=== PATIENT | male | born 1965 | race Caucasian/White ===

== ENCOUNTER 2023-06-28 17:48 | Inpatient (IN) | payer OTHER, SELFPAY ==
--- NOTE | ~2023-06-28 | CT_ITS ---
EXAMINATION: CT HAND LEFT W IV CONTRAST CLINICAL INFORMATION: Pain. Rule out tenosynovitis. COMPARISON: None available. TECHNIQUE: Contiguous axial contrast enhanced CT scan images of the left hand performed after intravenous administration of 85 mL of Omnipaque 350. Sagittal and coronal reformatted images obtained as well. This CT examination was performed using dose optimization techniques as appropriate, variously including the following: *Automated exposure control *Adjustment of mA and/or kV according to patient size (this includes techniques or standardized protocols for targeted exams where dose is matched to indication/reason for exam; i.e. extremities or head) *Use of iterative reconstruction technique DLP: 121 mGy-cm FINDINGS: There is mild degenerative change of the wrist. There is no evidence for fracture or bony erosive change. There is mild subcutaneous edema throughout the wrist extending into the hand. No fluid collection is seen. The well-visualized ligaments are grossly within normal limits without definitive associated fluid. CT/CT hand LT w IV con IMPRESSION: Mild degenerative of the wrist and edema of the wrist and hand. No acute osseous abnormality. No definitive evidence for tenosynovitis. MRI is a much better modality to evaluate soft tissues and should be considered if patient's symptoms persist..
--- NOTE | ~2023-06-28 | US_ITS ---
Examination: Ultrasound extremity nonvascular left hand. Clinical indications: Left hand induration and drainage. Rule out abscess. TECHNIQUE: Focal ultrasound imaging through the left lower hand was performed. A splinter was noted. FINDINGS: Imaging through the left palmar hand reveals variously a echogenic linear splinter measuring 2.2 x 0.1 x 0.2 cm. It is approximately 0.4 to 1.4 cm deep and has surrounding edema and reactive vascularity. No abscess seen. US/US extremity nonvascular bradshaw IMPRESSION: Linear echogenic splinter seen in left palm and at the base of index finger measuring 2.2 x 0.1 x 0.2 cm. It is 0.4 to 1.4 cm deep to this superficial skin.
--- NOTE | ~2023-06-28 | XR_ITS ---
EXAMINATION: XR HAND, LEFT CLINICAL INFORMATION: Question foreign body COMPARISON: None available. TECHNIQUE: PA, lateral, and oblique views of the right second finger FINDINGS: Positive for radiopaque foreign body. This is at the level of the second MCP joint toward the radial aspect. Approximately 3 mm deep to the skin. Measures 4 mm x 2 mm. There is another foreign body seen overlying the soft tissue between the first and second metacarpal measuring 1 to 2 mm. This foreign body could be seen overlying the cortex of the third metacarpal on the oblique image but this foreign body could represent a separate foreign body. XR/XR hand LT min 3V IMPRESSION: Positive foreign bodies as described. No evidence for underlying bony fracture
--- NOTE | ~2023-06-28 | XR_ITS ---
EXAMINATION: XR HAND, LEFT CLINICAL INFORMATION: Evaluate for foreign body COMPARISON: None available. TECHNIQUE: PA, lateral, and oblique views of the left hand. FINDINGS: No evidence for fracture or dislocation. No foreign body is seen. XR/XR hand LT min 3V IMPRESSION: No fracture or dislocation. No radiopaque foreign body is seen.
[2023-06-28 18:22] VITALS: BP 124/83; PULSE 73; RESP 20; TEMP 36.4; O2SAT 98; BMI 37.1
--- NOTE | 2023-06-28 18:45 | MHC.EDTECH ---
Patient blood drawn and sent to lab .
[2023-06-28 18:48] LABS: MANUAL DIFF FLAG NO
[2023-06-28 18:54] LABS: Basophils Absolute Auto 0.1 X10*3/uL (0.0-0.2); Basophils Percent Auto 0.8 % (0-2); Eosinophils Absolute Auto 0.1 X10*3/uL (0.0-0.4); Eosinophils Percent Auto 0.9 % (0-4); Hematocrit 43.2 % (42.0-52.0); Hemoglobin 14.6 g/dl (14.0-18.0); Imm Gran Abs Auto 0.09 X10*3/uL (0.00-0.03); Lymphocytes Absolute Auto 1.8 X10*3/uL (1.2-4.9); Lymphocytes Percent Auto 20.3 % (20-40); Mean Corpuscular HGB Conc 33.8 g/dl (31.0-36.0); Mean Corpuscular Hemoglobin 30.4 pg (27.0-33.0); Mean Corpuscular Volume 89.8 fL (80.0-98.0); Monocytes Absolute Auto 0.6 X10*3/uL (0.1-1.2); Monocytes Percent Auto 6.7 % (2-11); Neutrophils Absolute Auto 6.3 x10*3/uL (2.0-8.3); Neutrophils Percent Auto 70.3 % (45-73); Platelet Count 248 X10*3/uL (160-400); Red Blood Count 4.81 X10*6/uL (4.60-5.80); Red Cell Distribution Width 12.1 % (11.0-16.0); White Blood Count 8.9 X10*3/uL (4.8-10.8)
[2023-06-28 19:07] LABS: Alanine Aminotransferase 15 U/L (0-40); Alkaline Phosphatase 72 U/L (39-117); Anion Gap 14 (12-20); Aspartate Amino Transferase 18 U/L (5-37); Bilirubin Total 0.6 mg/dL (0.0-1.0); Blood Urea Nitrogen 14 mg/dL (9-16); Carbon Dioxide 22 mmol/L (22-29); Chloride 110 mmol/L (96-108); Creatinine Clr Calc Pharmacy 107.5; Estimated Glomerular Filt Rate > 60; Glucose Random 91 mg/dL (60-115); Potassium 3.8 mmol/L (3.3-5.1); Sodium 142 mmol/L (135-145); Total Protein 6.8 g/dL (6.5-8.0)
--- NOTE | 2023-06-28 21:47 | ED_ITS ---
HPI - General Adult General Chief complaint: Skin/Abscess/Foreign Body Stated complaint: cellulitis on L hand/ sliver Time Seen by Provider: 06/28/23 20:55 Source: patient and RN notes reviewed Mode of arrival: ambulatory Limitations: no limitations History of Present Illness HPI narrative: 57-year-old male presents for evaluation of left hand pain and swelling Patient is anticoagulated with Eliquis for atrial fibrillation He states that 3 days ago he accidentally got a sliver into the palm of his left hand at the base of the left 2nd finger He removed this immediately Patient reports that he had a black and blue area up until today Around 3:00 p.m. he has some pain and redness to the area When I evaluated him 4 hours later he states the area of redness has been rapidly progressing and he has a streaking redness going up his left arm He is unable to bend his left 2nd finger Denies any fevers or chills Related Data Home Medications Medication Instructions Recorded Confirmed amiodarone 200 mg tablet 200 mg PO DAILY 06/28/23 06/28/23 apixaban 5 mg tablet (Eliquis) 5 mg PO BID 06/28/23 06/28/23 bupropion HCl 150 mg 24 hr tablet, 150 mg PO DAILY 06/28/23 06/28/23 extended release dicyclomine 20 mg tablet 20 mg PO QID PRN Pain 06/28/23 06/28/23 Allergies Allergy/AdvReac Type Severity Reaction Status Date / Time No Known Allergies Allergy Mild UNKNOWN Verified 06/28/23 18:22 Review of Systems 2 Constitutional: Constitutional: Denies chills and Denies fever(s) Eyes: Eyes: Denies blurry vision Cardiovascular: Cardiovascular: Denies chest pain and Denies dyspnea Respiratory: Respiratory: Denies cough and Denies dyspnea Gastrointestinal: Gastrointestinal: Denies abdominal pain, Denies nausea and Denies vomiting Musculoskeletal: Musculoskeletal: Reports arthralgias, Reports joint swelling, Reports limited range of motion and Reports stiffness Integumentary/Breasts: Skin/Breast: Reports rash and Reports wounds PMFSH Past Medical History Medical History (Updated 06/29/23 @ 02:22 by David Chao) Paroxysmal atrial fibrillation Social History Social History Alcohol intake: current Alcohol intake frequency: a few times a month Smoked in Last 30 Days: No Use of substances other than those prescribed or required for medical reasons: No Advance Directives: No Advance Directives Information Provided: No Physical Exam ED Vital Signs: Vital Signs - 24 hr 06/28/23 18:22 06/28/23 22:49 Temperature 97.6 F 97.0 F Pulse Rate 73 69 Respiratory Rate 20 16 Blood Pressure 124/83 145/80 H Pulse Oximetry 98 97 Oxygen Delivery Method Room Air Room Air BMI result Body Mass Index 37.1 Const General: healthy appearing, comfortable, no acute distress, alert and awake Nutritional Appearance: well nourished Orientation/consciousness: patient oriented x3 HENMT Head: Yes normocephalic and Yes atraumatic Eyes Eyelids: Yes eyelids normal Conjunctivae: conjunctivae normal Sclerae: sclerae normal Corneas: corneas normal Pupils: Equal, round and reactive pupils present EOM: EOMs intact bilaterally Neck Neck: Yes full ROM Resp Effort & Inspection: normal respiratory effort, able to speak in complete sentences and not labored Skin Other: Small puncture wound on the ventral surface of the Halima left hand the base of the left 2nd MCP joint. There is moderate edema to this area with surrounding erythema that extends to the dorsal surface of the hand and there is streaking erythema going up the door service the left arm to about mid way towards the elbow. General skin exam: elasticity normal Neuro General: patient oriented x3 Cranial nerves: Yes Equal, round and reactive pupils present and Yes Bilaterally intact EOM present Cognition (Neuro): normal cognition Extrem Other: Patient is only able to flex the left 2nd finger at the PIP joint to about 90?. The left 2nd MCP joint can only flex to about 150? Medications Administered Generic Name Dose Route Start Last Admin Trade Name Freq PRN Reason Stop Dose Admin Cefazolin Sodium/Dextrose 2 gm in 50 mls @ 100 mls/hr 06/29/23 00:15 06/29/23 02:18 Ancef IV Not Given Q8H MAKAYLA Morphine Sulfate 2 mg 06/29/23 00:33 06/29/23 02:18 Morphine Sulfate 2 Mg/Ml Cartridge IVPUSH 2 mg Q4H PRN Administration moderate pain Protocol Discontinued Medications Generic Name Dose Route Start Last Admin Trade Name Freq PRN Reason Stop Dose Admin Acetaminophen 975 mg 06/28/23 21:13 06/28/23 22:15 Acetaminophen 325 Mg Tablet PO 06/28/23 21:14 975 mg ONCE ONE Administration Vancomycin HCl 2,000 mg in 500 mls @ 250 mls/hr 06/28/23 21:12 06/28/23 22:54 Vancomycin/Ns IV 06/28/23 23:11 250 mls/hr ONCE ONE Administration Ceftriaxone Sodium 1 gm/ 50 mls @ 100 mls/hr 06/28/23 21:12 06/28/23 22:50 Sodium Chloride IV 06/28/23 21:41 Infused ONCE ONE Infusion Sodium Chloride 1,000 mls @ 999 mls/hr 06/28/23 21:15 06/28/23 23:37 Ns IV 06/28/23 22:15 Infused .Q1H1M MAKAYLA Infusion Iohexol 100 ml 06/28/23 22:24 06/28/23 22:24 Iohexol 350 Mg/Ml 100 Ml Infus..Btl IV 06/28/23 22:25 85 ml ONCE ONE Administration Medical Decision Making Medical Decision Making [facility] Narrative: 57-year-old male presents for evaluation of left hand pain and swelling after accidentally stabbing himself with a sliver 3 days ago. He appears to have an obvious cellulitis but there is some concern for tenosynovitis as he has streaking erythema up the arm, has pain extending up the arm and is unable to completely flex left 2nd finger. His vital signs are stable, he has no white count, however his symptoms have been rather rapidly progressive. We will get a CT scan to evaluate for tenosynovitis primarily but will also help rule out foreign body. Will treat with vancomycin and ceftriaxone. Discussed with attending, Dr Booth. Patient will likely require admission Differential Diagnosis Differential Diagnoses: The differential diagnosis associated with the presentation includes Cellulitis Abscess Tenosynovitis Foreign body Puncture wound Admission/Observation Consideration of admission/observation: Escalation of care including admission/observation considered Consult Healthcare Provider Management of the patient was discussed with: Hospitalist and Bad Credit Collector (Orthopedic surgery, Yolanda Rivera) Lab Data [facility] Lab Attestation statement: I reviewed the patient's lab results. No leukocytosis or anemia, no significant electrolyte abnormalities. 06/28/23 18:42 06/28/23 18:42 Labs: Lab Results 06/28/23 06/28/23 06/28/23 Range/Units 18:42 21:51 22:03 WBC 8.9 (4.8-10.8) X10*3/uL RBC 4.81 (4.60-5.80) X10*6/uL Hgb 14.6 (14.0-18.0) g/dl Hct 43.2 (42.0-52.0) % MCV 89.8 (80.0-98.0) fL MCH 30.4 (27.0-33.0) pg MCHC 33.8 (31.0-36.0) g/dl RDW 12.1 (11.0-16.0) % Plt Count 248 (160-400) X10*3/uL MPV 11.0 (9.4-12.4) fL Immature Gran % (Auto) 1.0 H (0.0-0.4) % Neut % (Auto) 70.3 (45-73) % Lymph % (Auto) 20.3 (20-40) % Donley % (Auto) 6.7 (2-11) % Eos % (Auto) 0.9 (0-4) % Baso % (Auto) 0.8 (0-2) % Lymph # (Auto) 1.8 (1.2-4.9) X10*3/uL Donley # (Auto) 0.6 (0.1-1.2) X10*3/uL Eos # (Auto) 0.1 (0.0-0.4) X10*3/uL Baso # (Auto) 0.1 (0.0-0.2) X10*3/uL Abs Immat Gran (auto) 0.09 H (0.00-0.03) X10*3/uL Absolute Neuts (auto) 6.3 (2.0-8.3) x10*3/uL Absolute Nucleated RBC 0.000 (0.0-0.012) X10*3/uL Nucleated RBC % (auto) 0.0 (0.0-0.2) /100WBC PT 12.2 (11.1-13.3) SEC INR 1.0 (0.9-1.1) APTT 34.1 (26.0-36.4) SEC Sodium 142 (135-145) mmol/L Potassium 3.8 (3.3-5.1) mmol/L Chloride 110 H (96-108) mmol/L Carbon Dioxide 22 (22-29) mmol/L Anion Gap 14 (12-20) BUN 14 (9-16) mg/dL Creatinine 0.96 (0.5-1.4) mg/dL Estim Creat Clear Calc 107.5 Estimated GFR > 60 Random Glucose 91 (60-115) mg/dL Lactic Acid 1.4 (0.5-2.0) mmol/L Calcium 9.0 (8.4-10.2) mg/dL Total Bilirubin 0.6 (0.0-1.0) mg/dL AST 18 (5-37) U/L ALT 15 (0-40) U/L Alkaline Phosphatase 72 (39-117) U/L Total Protein 6.8 (6.5-8.0) g/dL Albumin 4.0 (3.5-5.0) g/dL Radiology Impression Discussion of test interpretation with radiology: I have reviewed the radiologist's reading. (No fracture or dislocation. No radiopaque foreign bodies seen) Discharge Plan Discharge Clinical Impression: Cellulitis of hand, left Patient Disposition: Admitted As Inpatient Prescriptions: No Action amiodarone 200 mg tablet 200 mg PO DAILY dicyclomine 20 mg tablet 20 mg PO QID PRN (Reason: Pain) bupropion HCl 150 mg tablet extended release 24 hr 150 mg PO DAILY Eliquis 5 mg Tablet 5 mg PO BID
[2023-06-28 22:02] LABS: Prothrombin Time 12.2 SEC (11.1-13.3)
[2023-06-28 22:04] LABS: Partial Thromboplastin Time 34.1 SEC (26.0-36.4)
--- NOTE | 2023-06-28 22:10 | PC.NURSE ---
pt is alert and oriented, skin pwd, respirations even and unlabored, pt's left hand very swollen, red with streaks running up the forearm as well, pt reports having a slither on the palm of the left hand two-three days ago and today started with swelling and redness and painful about 8/10
[2023-06-28] MEDS: Acetaminophen 325 MG TABLET 975 MG PO (22:15)
[2023-06-28] MEDS: 0.9 % Sodium Chloride 1,000 ML 999 ML IV (22:16)
[2023-06-28] MEDS: cefTRIAXone sodium 1 GM in 0.9 % Sodium Chloride 50 ML IV (22:16)
[2023-06-28 22:20] LABS: Lactic Acid 1.4 mmol/L (0.5-2.0)
[2023-06-28] MEDS: iohexoL 350 MG/ML 100 ML INFUS..BTL IV (22:24)
[2023-06-28 22:49] VITALS: BP 145/80; PULSE 69; RESP 16; TEMP 36.1; O2SAT 97
[2023-06-28] MEDS: vancomycin/NS 2,000 MG/500 ML PLAST..BAG 250 MG IV (22:54)
--- NOTE | 2023-06-29 00:14 | P.HPHOSP_ITS ---
History of Present Illness Date of Service: 06/29/23 Chief Complaint: left hand pain and swelling 57M PMH paroxysmal afib, obesity, mood disorder, ASD s/p closure, presented with left hand pain and swelling. Patient is horan and got a splinter in the plantar surface of left 2nd proximal digit. He believes he only partially removed splinter. Did not get any treatment for it. On day of presentation and became suddenly swollen, erythematous, difficult to fully flex fingers. Denies fever. Has full sensation, but does report paresthesias. In ED hand x-ray unremarkable. CT handd done but is pending. Review of Systems 2 Review of Systems: Yes all other systems are reviewed and are negative [facility] Medical History (Updated 06/29/23 @ 00:18 by Amrit Lloyd MD) Paroxysmal atrial fibrillation Social History Alcohol intake: current Alcohol intake frequency: a few times a month Smoked in Last 30 Days: No Use of substances other than those prescribed or required for medical reasons: No Advance Directives: No Advance Directives Information Provided: No Meds Allergies Allergy/AdvReac Type Severity Reaction Status Date / Time No Known Allergies Allergy Mild UNKNOWN Verified 06/28/23 18:22 Active Medications: Current Medications Amiodarone HCl (Amiodarone Hcl 200 Mg Tablet) 200 mg PO DAILY MAKAYLA Bupropion HCl (Bupropion Hcl Xl 150 Mg Tab.Er.24h) 150 mg PO DAILY [facility] Metoprolol Succinate (Metoprolol Succinate Er 50 Mg Tab.Er.24h) 50 mg PO DAILY [facility]; Protocol Home Medications Medication Instructions Recorded Confirmed Last Taken Type amiodarone 200 mg tablet 200 mg PO DAILY 06/28/23 06/28/23 Unknown History apixaban 5 mg tablet (Eliquis) 5 mg PO BID 06/28/23 06/28/23 Unknown History bupropion HCl 150 mg 24 hr tablet, 150 mg PO DAILY 06/28/23 06/28/23 Unknown History extended release dicyclomine 20 mg tablet 20 mg PO QID PRN Pain 06/28/23 06/28/23 Unknown History Physical Exam 2 Vital Signs and Narrative: Vital Signs: Last Vital Signs Temp 97.0 F 06/28/23 22:49 Pulse 69 06/28/23 22:49 Resp 16 06/28/23 22:49 BP 145/80 H 06/28/23 22:49 Pulse Ox 97 06/28/23 22:49 O2 Del Method Room Air 06/28/23 22:49 BMI result Body Mass Index 37.1 Left hand swelling and erythema with decreased range of motion, sensation intact Results Labs 06/28/23 18:42 06/28/23 18:42 Labs: Laboratory Results - last 24 hr 06/28/23 06/28/23 06/28/23 18:42 21:51 22:03 MCV 89.8 MCH 30.4 MCHC 33.8 RDW 12.1 Plt Count 248 MPV 11.0 Immature Gran % (Auto) 1.0 H Neut % (Auto) 70.3 Lymph % (Auto) 20.3 [place] % (Auto) 6.7 Eos % (Auto) 0.9 Baso % (Auto) 0.8 Lymph # (Auto) 1.8 [place] # (Auto) 0.6 Eos # (Auto) 0.1 Baso # (Auto) 0.1 Abs Immat Gran (auto) 0.09 H Absolute Neuts (auto) 6.3 Absolute Nucleated RBC 0.000 Nucleated RBC % (auto) 0.0 PT 12.2 INR 1.0 APTT 34.1 Anion Gap 14 Estim Creat Clear Calc 107.5 Estimated GFR > 60 Random Glucose 91 Lactic Acid 1.4 Calcium 9.0 Total Bilirubin 0.6 AST 18 ALT 15 Alkaline Phosphatase 72 Total Protein 6.8 Albumin 4.0 Imaging Radiologist's Impressions: Impressions Hand X-Ray 06/28/23 00:00 IMPRESSION: Positive foreign bodies as described. No evidence for underlying bony fracture Hand X-Ray 06/28/23 19:30 IMPRESSION: No fracture or dislocation. No radiopaque foreign body is seen. Assessment and Plan (1) Cellulitis: Status: Acute (2) Paroxysmal atrial fibrillation: Status: Acute Plan 57M PMH paroxysmal afib, obesity, mood disorder, ASD s/p closure, presented with left hand pain and swelling. Left hand cellulitis with foreign body IV Ancef Orthopedics consult Follow-up CT Follow-up cultures mood disorder bupropion Paroxysmal atrial fibrillation Continue amiodarone and Toprol Will hold Eliquis in case surgical intervention required Obesity Weight loss recommended DVT prophylaxis - Lovenox while holding Eliquis Full code Patient with significant and infection, will need IV antibiotics and possible surgical intervention, therefore expected require at least 2 midnights inpatient Quality Stroke Does the patient have a stroke diagnosis?: No VTE Prior VTE?: No VTE Risk Level:: Medical - moderate - high VTE Device Contraindication: Treatment Not Indicated VTE Drug Contraindication: N/A - Med Ordered
--- NOTE | 2023-06-29 00:33 | PC.NURSE ---
Hospitalist made aware of the pt's reports of 8/10 left hand pain and RN's request for pain medication orders. Per hospitalist orders to be entered for pain management.
--- NOTE | 2023-06-29 00:40 | PC.NURSE ---
COLLIN blake texted the hospitalist to inquire about cefazolin dose that was due now. RN wanted to ensure the MD wanted this ABX given at this time (after current ABX infusion is complete) as the pt has already received 2 antibiotics. Per MD POLANCO okay to hold cefazolin dose now and resume at next dose at 0800. Medication to be charted against as not given
[2023-06-29] MEDS: Morphine Sulfate 2 MG/ML CARTRIDGE IVPUSH ×3 (02:18→22:20)
--- OUTSIDE RECORDS SUMMARY | 2023-06-29 02:57 | XMS_ITS | Continuity of Care Document ---
Author Name Unknown Organization [facility] Address [address] [place] [address]- Care Team Providers Care Hourly Sign Language Interpreter Name Role Phone Geovanna Ada CEVALLOS Primary Care Phys[place] [facility] [place]): [place] [facility] [address] [place] [address]- Attending Physician: Corie Jeronimo Admitting Physician: AdmCorie martinez Referring Physician: Admtr ArAsael Allergies, Adverse Reactions, Alerts No Known Allergies Immunizations Given and Recorded Vaccine Date Status Refusal Reason SARS-CoV-2 mRNA ([id number]) vax 1 04/18/22 Given SARS-CoV-2 (COVID-19) mRNA BNT-162b2 vac 08/05/21 Recorded SARS-CoV-2 (COVID-19) mRNA BNT-162b2 vac 12/01/20 Recorded SARS-CoV-2 (COVID-19) mRNA BNT-162b2 vac 11/10/20 Recorded influenza virus vaccine, inactivated 2 08/04/21 Gi kumar influenza virus vaccine, inactivated 09/27/19 Give n influenza virus vaccine, inactivated 3 06/12/18 Gi kumar influenza virus vaccine, inactivated 06/16/16 Give n influenza virus vaccine, inactivated 4 06/26/13 Gi kumar tetanus-diphtheria toxoids (Td) 02/02/18 Given tetanus-diphtheria toxoids (Td) 5 12/20/98 Given FluLaval (oldterm) 04/25/12 Given FluLaval (oldterm) 6 07/08/10 Given tetanus/diphtheria/pertussis, acel(Tdap) 7 04/25/12 Given Influenza Virus Vaccine (oldterm) 8 05/28/09 Given Pneumococcal Vaccine (oldterm) 9 08/19/08 Given Influenza Inactive (IM) (oldterm) 10 08/02/08 Give n Tet/Diphth/Acel, Pertussis (oldterm) 04/30/08 Give n 1Result Comment: [facility]-[id number] 2Result Comment: [facility]-[id number] 3Result Comment: [06/12/2018] [facility]-[id number] 4Result Comment: [06/26/2013] ORDERRED BY GRAYSON ACEVEDO MD 5Admin Note: historical data 6Admin Note: [employer] [facility] VIS [id number] given 7Result Comment: error 8Admin Note: h1n1 also 9Result Comment: LOT #[id number]; PREVIOUSLY COMPLETED INJECTION HAD NOT BEEN GIVEN. 10Admin Note: given in clinic Medications amiodarone 200 mg oral tablet 200 mg, 1, tablet, By Mouth, Daily, # 30 tablet, Refills 6, Tot. Refills 6, Maintenance, 06/22/22 17:21:00 EDT, Route to Pharmacy Electronically, [facility]/pharmacy #[id number], 178, cm, 06/16/22 11:19:00 EDT, Height, 118, kg, 05/13/22 6:24:00 EDT, Dry Weight Start Date: 06/22/22 Stop Date: 01/18/23 Status: Ordered amiodarone 200 mg oral tablet See Instructions, TAKE 1 TABLET BY MOUTH EVERY DAY, # 90 tablet, Refills 3, Maintenance, 11/25/22 7:37:00 EDT, Instructions Replace Required Details, Route to Pharmacy Electronically, [id number], 178, cm, 06/16/22 11:19:00 EDT, Height, 118, kg, 0... Start Date: 11/25/22 Status: Ordered buPROPion 150 mg/24 hours (XL) oral tablet, extended release 1 tablet, By Mouth, Every 24 hours, # 90 tablet, 1 Refills, Maintenance, 07/07/22 19:24:00 EST, [facility], 90, TAKE 1 TABLET BY MOUTH EVERY 24 HOURS, 178, cm, 06/16/22 11:19:00 EDT, Height, 118, kg, 05/13/22 6:24:00 EDT, Dry Weight Start Date: 07/07/22 Status: Ordered dicyclomine 20 mg oral tablet 1 tablet, By Mouth, 4 times a day, PRN NEEDED, # 360 tablet, 1 Refills, [facility], 177, cm, 08/05/21 11:04:00 EST, Height Start Date: 01/02/22 Status: Ordered Eliquis 5 mg oral tablet See Instructions, TAKE 1 TABLET BY MOUTH TWICE A DAY FOR 30 DAYS, # 180 tablet, 3 Refills, [facility], 177, cm, 02/18/22 10:35:00 EDT, Height, 115.9, kg, 02/18/22 10:29:00 EDT, Dry Weight Start Date: 03/01/22 Status: Ordered omeprazole 20 mg oral enteric coated capsule 1 capsule, By Mouth, 2 times a day, # 60 capsule, 0 Refills, Maintenance, 11/22/22 16:12:00 EDT, [facility], 178, cm, 06/16/22 11:19:00 EDT, Height, 118, kg, 05/13/22 6:24:00 EDT, Dry Weight Start Date: 11/22/22 Status: Ordered Toprol XL 50 mg oral tablet, extended release 50 mg, 1, tablet, By Mouth, Daily, # 30 tablet, Refills 11, Tot. Refills 11, Maintenance, 09/23/22 8:02:00 EST, Route to Pharmacy Electronically, [facility]/pharmacy #[id number], 178, cm, 06/16/22 11:19:00 EDT, Height, 118, kg, 05/13/22 6:24:00 EDT, Dry Weight Start Date: 09/23/22 Status: Ordered Vitamin D3 1000 intl units oral tablet 1 tablet, By Mouth, Daily, # 90 tablet, 0 Refills, [facility], 177, cm, 02/18/22 10:35:00 EDT,Height, 115.9, kg, 02/18/22 10:29:00 EDT, Dry Weight Start Date: 04/01/22 Status: Ordered Problem List Condition Confirmation Course Effective Dates Status H ealth Status Informant Adult BMI 30.0-30.9 kg/sq m Confirmed Active Ascending aortic aneurysm stable 4cm 2020/stable 2021 Confirmed 07/31/19 Active Anxiety Confirmed 03/13/08 Active Traumatic arthritis of right foot 1 Confirmed Active Atrial septal defect, secundum 2 Confirmed 08/24/09 Active Cholesteatoma Confirmed Active COVID-19 Confirmed 01/02/22 Active Hearing loss in right ear/prior sx ear drum Confirmed Active IBS [Irritable bowel syndrome] 3, 4, 5 Confirmed Active Impaired fasting glucose Confirmed 11/08/20 Active Insomnia Confirmed Active Current use of assisted anticoagulation/advi sed medic alert Confirmed Active Depression, major Confirmed Active Mitral valve insufficiency 6, 7 Confirmed Active Myofascial pain 8 Confirmed Active Lung nodule PET 2019 /no chng ct angio 2008/stable 2021 Confirmed 10/24/19 Active Obstructive sleep apnea syndrome ahi10.08/2020 9, 10 Confirmed Active Paroxysmal A-fib catheter ablation 2012 06, 12, 13, 14, 15, 16 Confirmed Active Status post patch closure of ASD Confirmed Active Severe obesity Confirmed Active Vitamin D deficiency Confirmed Active 1neos 2documented at [facility];referred repair 3Confirmed by second opinion consultation 4seering GI still 5Dr [place] 6no need 7antibiotic prophylaxis;reminded;is aware 8low back;sees spine sports 9AHI 5.9 2008 study 10no significant issues per polysomnogram 11ablated 08-08 12May 07;echo EF 55% 13echo january 04 ef 55 % 14reduced EF 45% 15normal coronaries per angiography 16abnormal stress test; cardiac cath pending Social History Social History Type Response Smoking Status Never smoker; Tobacc o user in household: No entered on: 01/17/17 Sex Patient Care team information Care Team Personnel Name: Ada Austin NP Position: [facility] PC[facility] Associate Professional Member Role: PCP Address: Address: [address] [place] [id number]- [place] Name: Jono Hanna MD Position: [facility] Cardiology MD Member Role: Lifetime Consulting Physician Address: Address: [address] [place] [address] [facility] [place] [address]- [place] Name: Juany Booth RN Position: S RN Member Role: Primary Care Nurse Name: Joey Tan RN Position: S RN Member Role: Primary Care Nurse Name: Tami Lucas RN Position: S RN Member Role: Primary Care Nurse Care Team Related Persons Name: TONY SAMSON Address: home [address] [place] [id number] Name: MINDI BRENNAN Address: home [address] [place] [address] [place]
--- OUTSIDE RECORDS SUMMARY | 2023-06-29 02:57 | XMS_ITS | Continuity of Care Document ---
Author Name Unknown Organization [facility] ter Address [address] [place] [address]- Care Team Providers Care Director Of Securities And Real Estate Name Role Phone Geovanna Ada CEVALLOS Primary Care Physician [phone] [place] [facility] [place] 07/08/[address] [address] Attending Physician: Verena Bro MD Admitting Physician: Verena Bro MD Referring Physician: Beau Quijano MD Allergies, Adverse Reactions, Alerts No Known Allergies Immunizations Given and Recorded Vaccine Date Status Refusal Reason SARS-CoV-2 mRNA ([id number]) vax 1 04/18/22 Given SARS-CoV-2 (COVID-19) mRNA [...] Pertussis (oldterm) 04/30/08 Give n 1Result Comment: [facility] [place]-[id number] 2Result Comment: [facility] [place]-[id number] 3Result Comment: [06/12/2018] [facility] [place]-[id number] 4Result Comment: [06/26/2013] ORDERRED BY GRAYSON ACEVEDO MD 5Admin Note: historical data 6Admin Note: [facility] [place] VIS [id number] given 7Result Comment: error 8Admin Note: h1n1 also 9Result Comment: LOT #[id number]; PREVIOUSLY COMPLETED INJECTION HAD NOT BEEN GIVEN. 10Admin Note: given in clinic Medications amiodarone 200 mg oral tablet 200 mg, 1, tablet, By Mouth, Daily, # 30 tablet, Refills 6, Tot. Refills 6, Maintenance, 06/22/22 17:21:00 EDT, Route to Pharmacy Electronically, [facility]/pharmacy #[id number], 178, cm, 06/16/22 11:19:00 EDT, Height, 118, kg, 05/13/22 6:24:00 EDT, Dry Weight Start Date: 06/22/22 Stop Date: 01/18/23 Status: Ordered buPROPion 150 mg/24 hours (XL) oral tablet, extended release 1 tablet, By Mouth, Every 24 hours, # 90 tablet, 1 Refills, Maintenance, 07/07/22 19:24:00 EST, [facility], 90, TAKE 1 TABLET BY MOUTH EVERY 24 HOURS, 178, cm, 06/16/22 11:19:00 EDT, Height, 118, kg, 05/13/22 6:24:00 EDT, Dry Weight Start Date: 07/07/22 Status: Ordered dicyclomine 20 mg oral tablet 1 tablet, By Mouth, 4 times a day, PRN NEEDED, # 360 tablet, 1 Refills, [facility], 177, cm, 08/05/21 11:04:00 EST, Height Start Date: 01/02/22 Status: Ordered Eliquis 5 mg oral tablet See Instructions, TAKE 1 TABLET BY MOUTH TWICE A DAY FOR 30 DAYS, # 180 tablet, 3 Refills, [facility], 177, cm, 02/18/22 10:35:00 EDT, Height, 115.9, kg, 02/18/22 10:29:00 EDT, Dry Weight Start Date: 03/01/22 Status: Ordered omeprazole 20 mg oral delayed release tablet 1 tablet = 20 mg, By Mouth, 2 times a day, for 30 days, # 60 tablet, 0 Refills, Hard Stop 07/30/22 15:54:00 EST, 06/30/22 15:54:00 EDT, EC Tablet, [facility]/pharmacy #[id number], Partial fill upon patient request if the prescription is for a schedule II opioid Start Date: 06/30/22 Stop Date: 07/30/22 Status: Ordered omeprazole 20 mg oral delayed release tablet 1 tablet = 20 mg, By Mouth, 2 times a day, # 60 tablet, 0 Refills, Maintenance, 07/30/22 15:54:00 EST, EC Tablet, [facility]/pharmacy #[id number], Partial fill upon patient request if the prescription is for a schedule II opioid drug., 178, cm, 06/16/22 11:19:00 E... Start Date: 07/30/22 Stop Date: 08/29/22 Status: Ordered Toprol XL 50 mg oral tablet, extended release 50 mg, 1, tablet, By Mouth, Daily, # 30 tablet, Refills 11, Tot. Refills 11, Maintenance, 08/26/21 14:15:00 EST, Route to Pharmacy Electronically, [facility]/pharmacy #[id number], Partial fill upon patient request if the prescription is for a schedule II opioid Start Date: 08/26/21 Status: Ordered Vitamin D3 1000 intl units oral tablet 1 tablet, By Mouth, Daily, # 90 tablet, 0 Refills, [facility], 177, cm, 02/18/22 10:35:00 EDT,Height, 115.9, kg, [...] Active Insomnia Confirmed Active Current use of detention anticoagulation/advi sed medic alert Confirmed Active Depression, major Confirmed Active Mitral valve insufficiency 6, 7 Confirmed Active Myofascial pain 8 Confirmed Active Lung nodule PET 2019 /no chng ct angio 2008/2021 Confirmed 10/24/19 Active Obstructive sleep apnea syndrome ahi10.08/2020 9, 10 Confirmed Active Paroxysmal A-fib catheter ablation 2011 11, 12, 13, 14, 15, 16 Confirmed Active Status post patch closure of ASD Confirmed Active Severe obesity Confirmed Active Vitamin D deficiency Confirmed Active 1neos 2documented at [facility];referred repair 3Confirmed by second opinion consultation 4seering GI still 5Dr [place] 6no need 7antibiotic prophylaxis;reminded;is aware 8low back;sees spine sports 9AHI 5.9 2009 study 10no significant issues per polysomnogram 11ablated 08-08 12May 07;echo EF 55% 13echo january 04 ef 55 % 14reduced EF 45% 15normal coronaries per angiography 16abnormal stress test; cardiac cath pending Social History Social History Type Response Smoking Status Never smoker; Tobacc o user in household: No entered on: 01/17/17 Sex Patient Care team information Care Team Personnel Name: Ada Austin NP Position: [facility] PCO Associate Professional Member Role: PCP Address: Address: [address] [place] [phone]- [place] Name: Jono Hanna MD Position: [facility] Cardiology MD Member Role: Lifetime Consulting Physician Address: Address: [address] [place] [address] [place] [address]- Name: Juany Booth RN Position: S RN Member Role: Primary Care Nurse Name: Joey Tan RN Position: S RN Member Role: Primary Care Nurse Name: Tami Lucas RN Position: [facility] RN Member Role: Primary Care Nurse Care Team Related Persons Name: TONY SAMSON Address: home [address] [place] [address] Name: MINDI BRENNAN Address: home [address] [place] [address]
--- OUTSIDE RECORDS SUMMARY | 2023-06-29 02:57 | XMS_ITS | Continuity of Care Document ---
Author Name Unknown Organization [facility] ter Address [address] [place] [address]- Care Team Providers Care Deoiling Machine Operator Name Role Phone Foreign [place] MD Primary Care Physician Encounter [facility] Date(s): 10/03/19 - 10/03/[address] [address]- [facility] Attending Physician: Foreign [place] MD Allergies, Adverse Reactions, Alerts Substance Reaction Severity Status NKA Active Immunizations Given and Recorded Vaccine Date Status Refusal Reason influenza virus vaccine, inactivated 09/27/19 Give n influenza virus vaccine, inactivated 1 06/12/18 Gi kumar influenza virus vaccine, inactivated 06/16/16 Give n influenza virus vaccine, inactivated 2 06/26/13 Gi kumar tetanus-diphtheria toxoids (Td) 02/02/18 Given tetanus-diphtheria toxoids (Td) 3 12/20/98 Given FluLaval (oldterm) 04/25/12 Given FluLaval (oldterm) 4 07/08/10 Given tetanus/diphtheria/pertussis, acel(Tdap) 5 04/25/12 Given Influenza Virus Vaccine (oldterm) 6 05/28/09 Given Pneumococcal Vaccine (oldterm) 7 08/19/08 Given Influenza Inactive (IM) (oldterm) 8 08/02/08 Given Tet/Diphth/Acel, Pertussis (oldterm) 04/30/08 Give n 1Result Comment: [06/12/2018] [facility]-[id number] 2Result Comment: [06/26/2013] ORDERRED BY FOREIGN [place] MD 3Admin Note: historical data 4Admin Note: [employer] VIS [id number] given 5Result Comment: error 6Admin Note: h1n1 also 7Result Comment: LOT #[id number]; PREVIOUSLY COMPLETED INJECTION HAD NOT BEEN GIVEN. 8Admin Note: given in clinic Medications Aspirin Enteric Coated 81 mg oral delayed release tablet See Instructions, # 90 tablet, Refills 1 Tot. Refills 1, 1 TABLET BY MOUTH DAILY, [id number] Start Date: 03/17/19 Status: Ordered buPROPion 150 mg/24 hours (XL) oral tablet, extended release 1 tablet = 150 mg, By Mouth, Every 24 hours, Reduced dose, # 90 tablet, 0 Refills, Maintenance, 07/16/19 7:54:31 EST, ER Tablet, 1 tablet By Mouth Every 24 hours,Instr:Reduced dose Start Date: 07/16/19 Status: Ordered dicyclomine 20 mg oral tablet See Instructions, TAKE NEEDED UP TO 4 TIMES A DAY, # 90 tablet, 0 Refills, Soft Stop, 07/16/19 7:54:30 EST Start Date: 07/16/19 Status: Ordered Lexapro 10 mg oral tablet 1 tablet = 10 mg, By Mouth, Daily, increased dose, # 90 tablet, 0 Refills, Maintenance, 07/16/19 7:54:26 EST, Tablet Start Date: 07/16/19 Status: Ordered miconazole 2% topical cream 1 application, Topically, 2 times a day, # 15 Gm, 0 Refills, Maintenance, 07/12/18 9:36:27 EST, Cream, 1 application Topically 2 times a day Start Date: 07/12/18 Status: Ordered Vitamin D3 2000 intl units oral tablet 1 tablet = 2,000 International_Units, By Mouth, Daily, # 90 tablet, 0 Refills, Maintenance, 07/16/19 7:54:26 EST Start Date: 07/16/19 Status: Ordered Problem List Condition Effective Dates Status Health Status Inform ant Adult BMI 30.0-30.9 kg/sq m(Confirmed) Active Ascending aortic aneurysm 4. 0 cm MRI (Confirmed) 07/31/19 Active Anxiety(Confirmed) 03/13/08 Active Traumatic arthritis of right foot(Confirmed) 1 Active Atrial septal defect, secundum(Confirmed) 2 08/24/09 Active Cardiomyopathy ef41% MRI Jul 2019(Confirmed) 3 Active Cholesteatoma(Confirmed) Active Status post catheter ablatio n of atrial fibrillation(Confirmed) Active History of atrial fibrillati on ablated 2011(Confirmed) 4, 5, 6, 7, 8, 9 Active IBS [Irritable bowel syndrome](Confirmed) 10, 11, 12 Active Insomnia(Confirmed) Active Depression, major, in remission(Confirmed) Active Mitral valve insufficiency(C onfirmed) 13, 14 Active Myofascial pain(Confirmed) 15 Active Status post patch closure of ASD(Confirmed) Active Vitamin D deficiency(Confirmed) Active 1neos 2documented at [facility];referred repair 3UNDEFINED, BIOPSY PENDING 4ablated 08-08 5May 07;echo EF 55% 6echo january 04 ef 55 % 7reduced EF 45% 8normal coronaries per angiography 9abnormal stress test; cardiac cath pending 10Confirmed by second opinion consultation 11seering GI still 12Dr [place] 13no need 14antibiotic prophylaxis;reminded;is aware 15low back;sees spine sports Social History Social History Type Response Smoking Status Never smoker; Tobacc o user in household: No entered on: 01/17/17 Sex
--- OUTSIDE RECORDS SUMMARY | 2023-06-29 02:57 | XMS_ITS | Continuity of Care Document ---
Author Name Unknown Organization [facility] Address [address] [place] [address]- Care Team Providers Care Area Plant Manager Name Role Phone Miroslava CURTIS, Foreign Woodson Primary Care Physician [phone] Encounter [facility] Date(s): 11/02/20 - 12/02/20 [facility] [address] [place] [address]- Allergies, Adverse Reactions, Alerts Substance Reaction Severity Status NKA Active Immunizations Given and Recorded Vaccine Date Status Refusal Reason SARS-CoV-2 (COVID-19) mRNA BNT-162b2 vac 11/10/20 Recorded influenza virus vaccine, inactivated 09/27/19 Give n [...] (oldterm) 04/30/08 Give n 1Result Comment: [06/12/2018] [facility]-[id number] 2Result Comment: [06/26/2013] ORDERRED BY FOREIGN ACEVEDO MD 3Admin Note: historical data 4Admin Note: [employer] [place] VIS [id number] given 5Result Comment: error 6Admin Note: h1n1 also 7Result Comment: LOT #[id number]; PREVIOUSLY COMPLETED INJECTION HAD NOT BEEN GIVEN. 8Admin Note: given in clinic Medications dicyclomine 20 mg oral tablet 1 tablet, By Mouth, 4 times a day, PRN NEEDED, # 360 tablet, 1 Refills, Maintenance, 04/02/20 6:38:00 EDT, [facility], 177, cm, 09/27/19 8:18:00 EST, Height, 119.9, kg, 05/13/19 16:58:00 EDT,Dry Weight Start Date: 04/02/20 Status: Ordered duloxetine 30 mg oral enteric coated capsule 1 capsule = 30 mg, By Mouth, 2 times a day, # 60 each, 6 Refills, Maintenance, 11/18/20 16:47:00 EDT, [facility]/pharmacy #[id number], Partial fill upon patient request if the prescription is for a schedule II opioid drug., 177, cm, 11/10/20 14:43:00 EDT, Height,... Start Date: 11/18/20 Status: Ordered Eliquis 5 mg oral tablet 1 tablet = 5 mg, By Mouth, 2 times a day, # 60 tablet, 8 Refills, Maintenance, 12/17/19 10:31:00 EDT, Tablet, [facility]/pharmacy #[id number], 177, cm, 09/27/19 8:18:00 EST, Height, 119.9, kg, 05/13/19 16:58:00 EDT, Dry Weight Start Date: 12/17/19 Stop Date: 09/12/20 Status: Ordered omeprazole 20 mg oral enteric coated capsule 1 capsule, By Mouth, 2 times a day, # 60 capsule, 11 Refills, Maintenance, 05/05/20 9:56:00 EDT, [id number], 177, cm, 09/27/19 8:18:00 EST, Height, 119.9, kg, 05/13/19 16:58:00 EDT, Dry Weight Start Date: 05/05/20 Stop Date: 04/30/21 Status: Ordered Toprol XL 25 mg oral tablet, extended release 25 mg, 1, tablet, By Mouth, Daily, # 30 tablet, Refills 11, Tot. Refills 11, Maintenance, 01/14/20 14:44:00 EDT, Route to Pharmacy Electronically, [facility]/pharmacy #[id number], 177, cm, 09/27/19 8:18:00 EST, Height, 119.9, kg, 05/13/19 16:58:00 EDT, Dry Weight Start Date: 01/14/20 Stop Date: 01/08/21 Status: Ordered Vitamin D3 1000 intl units oral tablet 1 tablet = 1,000 International_Units, By Mouth, Daily, # 30 tablet, 0 Refills, Maintenance, 11/10/20 15:04:00 EDT, Tablet, [facility]/pharmacy #[id number], Partial fill upon patient request if the prescription isfor a schedule II opioid drug., 177, cm, 11/10/20 1... Start Date: 11/10/20 Status: Ordered Problem List Condition Effective Dates Status Health Status Inform ant Adult BMI 30.0-30.9 kg/sq m(Confirmed) Active Ascending aortic aneurysm 4. 0 cm MRI (Confirmed) 07/31/19 Active Anxiety(Confirmed) 03/13/08 Active Traumatic arthritis of right foot(Confirmed) 1 Active Atrial septal defect, secundum(Confirmed) 2 08/24/09 Active Cardiomyopathy ef41% MRI Jul 2019 ? afib/nonoischemic per cath(Confirmed) 3 Active Cholesteatoma(Confirmed) Active Chronic GERD EGD 2004(Confirmed) 4 Active Status post catheter ablatio n of atrial fibrillation(Confirmed) Active IBS [Irritable bowel syndrome](Confirmed) 5, 6, 7 Active Impaired fasting glucose(Confirmed) 11/08/20 Active Insomnia(Confirmed) Active Current use of mcc anticoagulation(Confirmed) Active Depression, major(Confirmed) Active Mitral valve insufficiency(C onfirmed) 8, 9 Active Myofascial pain(Confirmed) 10 Active Lung nodule PET 2019 /no vch ng ct angio 2008(Confirmed) 10/24/19 Active Obstructive sleep apnea synd shaji ahi 5.9(Confirmed) 11, 12 Active Paroxysmal A-fib(Confirmed) 13, 14, 15, 16, 17, 18 Active Status post patch closure of ASD(Confirmed) Active Vitamin D deficiency(Confirmed) Active 1neos 2documented at [facility];referred repair 3UNDEFINED, BIOPSY PENDING 4had EGD 5Confirmed by second opinion consultation 6seering GI still 7Dr [place] 8no need 9antibiotic prophylaxis;reminded;is aware 10low back;sees spine sports 11AHI 5.9 2008 study 12no significant issues per polysomnogram 13ablated 08-08 14May 07;echo EF 55% 15echo january 04 ef 55 % 16reduced EF 45% 17normal coronaries per angiography 18abnormal stress test; cardiac cath pending Social History Social History Type Response Smoking Status Never smoker; Tobacc o user in household: No entered on: 01/17/17 Sex
--- OUTSIDE RECORDS SUMMARY | 2023-06-29 02:57 | XMS_ITS | Continuity of Care Document ---
Author Name Unknown Organization [facility] Josh lt Address [address] [place] [address]- Care Team Providers Care Iron Caster Name Role Phone Miroslava CURTIS, Foreign Woodson Primary Care Physician Encounter [facility] Date(s): 12/03/20 - 01/02/21 [facility] Adult [address] [place] [address]- Allergies, Adverse Reactions, Alerts Substance Reaction Severity [...] (oldterm) 04/30/08 Give n 1Result Comment: [06/12/2018] [facility]-[id number] 2Result Comment: [06/26/2013] ORDERRED BY FOREIGN ACEVEDO MD 3Admin Note: historical data 4Admin Note: [employer] [place] VIS [phone] given 5Result Comment: error 6Admin Note: h1n1 also 7Result Comment: LOT #[id number]; PREVIOUSLY COMPLETED INJECTION HAD NOT BEEN GIVEN. 8Admin Note: given in clinic Medications dicyclomine 20 mg oral tablet 1 tablet, By Mouth, 4 times a day, PRN NEEDED, # 360 tablet, 1 Refills, Maintenance, 04/02/20 6:38:00 EDT, [id number], 177, cm, 09/27/19 8:18:00 EST, Height, 119.9, kg, 05/13/19 16:58:00 EDT,Dry Weight Start Date: 04/02/20 Status: Ordered duloxetine 30 mg oral enteric coated capsule 1 capsule = 30 mg, By Mouth, 2 times a day, # 60 each, 6 Refills, Maintenance, 11/18/20 16:47:00 EDT, [facility]/pharmacy #[id number], Partial fill upon patient request if the prescription is for a schedule II opioid drug., 177, cm, 11/10/20 14:43:00 EDT, Height,... Start Date: 11/18/20 Status: Ordered Eliquis 5 mg oral tablet 1 tablet = 5 mg, By Mouth, 2 times a day, # 60 tablet, 8 Refills, Maintenance, 12/17/19 10:31:00 EDT, Tablet, [facility]/pharmacy #[id number], 177, cm, 09/27/19 8:18:00 EST, Height, [...] 01/14/20 14:44:00 EDT, Route to Pharmacy Electronically, [facility]/pharmacy #[id number], 177, cm, 09/27/19 8:18:00 EST, Height, 119.9, kg, 05/13/19 16:58:00 EDT, Dry Weight Start Date: 01/14/20 Stop Date: 01/08/21 Status: Ordered Vitamin D3 1000 intl units oral tablet 1 tablet, By Mouth, Daily, # 30 tablet, 5 Refills, Maintenance, 12/03/20 17:56:00 EDT, [facility], 177, cm, 11/10/20 14:43:00 EDT, Height, 119.9, kg, 05/13/19 16:58:00 EDT, Dry Weight Start Date: 12/03/20 Status: Ordered Problem List Condition Effective Dates Status Health Status Inform ant Adult BMI 30.0-30.9 kg/sq m(Confirmed) Active Ascending aortic aneurysm st able 4cm 2020(Confirmed) 07/31/19 Active Anxiety(Confirmed) 03/13/08 Active Traumatic arthritis [...] 11/08/20 Active Insomnia(Confirmed) Active Current use of residential anticoagulation(Confirmed) Active Depression, major(Confirmed) Active Mitral valve insufficiency(C onfirmed) 8, 9 Active Myofascial pain(Confirmed) 10 Active Lung nodule PET 2019 /no vch ng ct angio 2008(Confirmed) 10/24/19 Active Obstructive sleep apnea synd shaji ahi 5.9(Confirmed) 11, 12 Active Paroxysmal A-fib(Confirmed) 13, 14, 15, 16, 17, 18 Active Status post patch closure of ASD(Confirmed) Active Vitamin D deficiency(Confirmed) Active 1neos 2documented at [facility];referred repair 3UNDEFINED, BIOPSY PENDING 4had EGD 5Confirmed [...]
--- OUTSIDE RECORDS SUMMARY | 2023-06-29 02:57 | XMS_ITS | Continuity of Care Document ---
Author Name Unknown Organization [facility] Josh lt Address [address] [place] [address]- Care Team Providers Care Load Test Mechanic Name Role Phone Geovanna INDUSTRIAL HIRE SALES ASSISTANT, Ada Desai Primary Care Physician Encounter [facility] Date(s): 06/07/22 - 07/07/22 [facility] Adult [address] [place] [address]- Attending Physician: Admtr, Ar8 Allergies, Adverse Reactions, Alerts No Known Allergies Immunizations Given and Recorded Vaccine Date Status Refusal Reason SARS-CoV-2 mRNA ([id number]) vax 1 04/18/22 Given SARS-CoV-2 (COVID-19) mRNA [...] Pertussis (oldterm) 04/30/08 Give n 1Result Comment: [facility]-[id number] 2Result Comment: [facility]-[id number] 3Result Comment: [06/12/2018] [facility]-[id number] 4Result Comment: [06/26/2013] ORDERRED BY GRAYSON ACEVEDO MD 5Admin Note: historical data 6Admin Note: [employer] [facility] VIS [phone] given 7Result Comment: error 8Admin Note: h1n1 also 9Result Comment: LOT #[id number]; PREVIOUSLY COMPLETED INJECTION HAD NOT BEEN GIVEN. 10Admin Note: given in clinic Medications amiodarone 200 mg oral tablet 200 mg, 1, tablet, By Mouth, Daily, # 30 tablet, Refills 6, Tot. Refills 6, Maintenance, 06/22/22 17:21:00 EDT, Route to Pharmacy Electronically, [facility]/pharmacy #[id number], 178, cm, 06/16/22 11:19:00 EDT, Height, 118, kg, 05/13/22 6:24:00 EDT, Dry Weight Start Date: 06/22/22 Stop Date: 01/18/23 Status: Ordered buPROPion 150 mg/24 hours (XL) oral tablet, extended release 1 tablet, By Mouth, Every 24 hours, # 90 tablet, 1 Refills, Maintenance, 07/07/22 19:24:00 EST, [facility], 90, TAKE 1 TABLET BY MOUTH EVERY 24 HOURS, 178, cm, 06/16/22 11:19:00 EDT, Height, 118, kg, 05/13/22 6:24:00 EDT, Dry Weight Start Date: 07/07/22 Status: Ordered dicyclomine 20 mg oral tablet 1 tablet, By Mouth, 4 times a day, PRN NEEDED, # 360 tablet, 1 Refills, [facility], 177, cm, 08/05/21 11:04:00 EST, Height Start Date: 01/02/22 Status: Ordered Eliquis 5 mg oral tablet See Instructions, TAKE 1 TABLET BY MOUTH TWICE A DAY FOR 30 DAYS, # 180 tablet, 3 Refills, [facility], 177, cm, 02/18/22 10:35:00 EDT, Height, 115.9, kg, 02/18/22 10:29:00 EDT, Dry Weight Start Date: 03/01/22 Status: Ordered omeprazole 20 mg oral delayed release tablet 1 tablet = 20 mg, By Mouth, 2 times a day, for 30 days, # 60 tablet, 0 Refills, Hard Stop 07/30/22 15:54:00 EST, 06/30/22 15:54:00 EDT, EC Tablet, [facility]/pharmacy #[id number], Partial fill upon patient request if the prescription is for a schedule II opioid Start Date: 06/30/22 Stop Date: 07/30/22 Status: Ordered omeprazole 20 mg oral delayed release tablet 1 tablet = 20 mg, By Mouth, 2 times a day, # 60 tablet, 0 Refills, Maintenance, 07/30/22 15:54:00 EST, EC Tablet, [facility]/pharmacy #[id number], Partial fill upon patient request if the prescription is for a schedule II opioid drug., 178, cm, 06/16/22 11:19:00 E... Start Date: 07/30/22 Stop Date: 08/29/22 Status: Ordered Toprol XL 50 mg oral tablet, extended release 50 mg, 1, tablet, By Mouth, Daily, # 30 tablet, Refills 11, Tot. Refills 11, Maintenance, 08/26/21 14:15:00 EST, Route to Pharmacy Electronically, [facility]/pharmacy #[id number], Partial fill upon patient request if the prescription is for a schedule II opioid Start Date: 08/26/21 Status: Ordered Vitamin D3 1000 intl units oral tablet 1 tablet, By Mouth, Daily, # 90 tablet, 0 Refills, [facility], 177, cm, 02/18/22 10:35:00 EDT,Height, 115.9, kg, [...] Active Insomnia Confirmed Active Current use of custodial anticoagulation/advi sed medic alert Confirmed Active Depression, [...] D deficiency Confirmed Active 1neos 2documented at [facility];referred repair 3Confirmed by second opinion consultation 4seering GI still 5Dr [place] 6no need 7antibiotic prophylaxis;reminded;is aware 8low back;sees spine sports 9AHI 5.9 2008 study 10no significant issues per polysomnogram 11ablated 08-08 12May 07;echo EF 55% 13echo january 04 ef 55 % 14reduced EF 45% 15normal coronaries per angiography 16abnormal stress test; cardiac cath pending Procedures Procedure Date Related Diagnosis Body Site Status Cardiovascular stress test u sing maximal or submaximal treadmill or bicycle exercise, continuous electrocardiographic monitoring, and/or pharmacological stress; interpretation and report only 1 11/29/17 Completed Holter monitor 2 04/12/11 Complete d Electrocardiogram, routine E CG with at least 12 leads; with interpretation and report 3 03/14/11 Completed cardiac ablation 12/31/09 Complete d patent forramen closure 11/06/09 C ompleted Repair of atrial septal defe ct patch closure 4, 5 11/06/09 Completed Trans esoph Echocardiogram 6 08/07/09 Completed colonoscopy 7 04/06/09 Completed Colonoscopy, flexible, proxi mal to splenic flexure; diagnostic, with or without collection of specimen(s) by brushing or washing, with or without colon decompression (separate procedure) 8 04/06/09 Completed Computed tomographic angiogr aphy, chest (noncoronary), with contrast material(s), including noncontrast images, if performed, and image postprocessing 9 10/31/08 Completed Polysomnogram 10 10/02/08 Complete d Pulmonary function test 11 09/17/08 Completed Upper gastrointestinal endos copy including esophagus, stomach, and either the duodenum and/or jejunum as appropriate; diagnostic, with or without collection of specimen(s) by brushing or washing (separate procedure) 12 09/14/04 Completed 1Normal Exercise Tolerance Test Mild Abnormality of Exercise Physiology No EKG Evidence of Ischemia 2atrial fibrillation 3sinsus pacs 4only ASD patch closure 5and patent foramen closure 6ASD, see full report; ef 55-60% 7normal,neg biopsies 8neg,neg bioipsies 9no emboli,nil else 10AHI 5.9 no signf hypoxemia 11normal spirometry, DLCO,lung volumes PO2 72 room air PH 7.46 PCO2 32 12h ehrnia Social History Social History Type Response Smoking Status Never smoker; Tobacc o user in household: No entered on: 01/17/17 Sex Note * Event Display: Radiology Result Scanned Authored Date: * Carmela Deutsch: PERFORM Event Display: Cardiovascular Results Scanned Authored Date: [id number] * Danette Romeo: PERFORM Event Display: Laboratory Results Scanned Authored Date: [id number] * Carmela Deutsch: PERFORM Event Display: Radiology Results Scanned Authored Date: [id number] * Carmela Deutsch: PERFORM Event Display: Discharge/Transfer Note Hospital Authored Date: [id number] * Lisette Bai: PERFORM Event Display: Cardiovascular Results Scanned Authored Date: [id number] * Joyce Colunga: PERFORM Event Display: Cardiovascular Results Scanned Authored Date: [id number] Cardiology Outpatient Note * Lucita Contreras: PERFORM Event Display: Cardiology Note Office Authored Date: [id number] * Lisette Bai: PERFORM Event Display: Cardiology Note Office Authored Date: [id number] * Lucita Contreras: PERFORM Event Display: Cardiology Note Office Authored Date: [id number] Patient Care team information Care Team Personnel Name: Ada Austin NP Position: [facility] PCO Associate Professional Member Role: PCP Address: Address: [address] [place] [address]- Name: Jono Hanna MD Position: [facility] Cardiology MD Member Role: Lifetime Consulting Physician Address: Address: [address] [facility], [address] [place] [address] [place] [address]- [place] Name: Juany Booth RN Position: [facility] RN Member Role: Primary Care Nurse Name: Joey Tan RN Position: [facility] RN Member Role: Primary Care Nurse Name: Tami Lucas RN Position: [facility] RN Member Role: Primary Care Nurse Care Team Related Persons Name: TONY SAMSON Address: home [address] [place] [address] Name: MINDI BRENNAN Address: home [address] [place] [address]
--- OUTSIDE RECORDS SUMMARY | 2023-06-29 02:57 | XMS_ITS | Continuity of Care Document ---
Author Name Unknown Organization [facility] Address [address] [place] [id number]- Care Team Providers Care Industrial Relations Specialist Name Role Phone Miroslava CURTIS, Foreign Woodson Primary Care Physician [phone] Encounter [facility] Date(s): 06/04/20 - 07/04/20 [facility] [address] [place] [id number] Attending Physician: AdmCorie martinez Admitting Physician: AdmtrCorie Referring Physician: Admtr, Ar8 Allergies, Adverse Reactions, Alerts Substance Reaction Severity [...] (oldterm) 04/30/08 Give n 1Result Comment: [06/12/2018] [facility]-[id number] 2Result Comment: [06/26/2013] ORDERRED BY FOREIGN ACEVEDO MD 3Admin Note: historical data 4Admin Note: [employer] [facility] VIS [phone] given 5Result Comment: error 6Admin Note: h1n1 also 7Result Comment: LOT #[id number]; PREVIOUSLY COMPLETED INJECTION HAD NOT BEEN GIVEN. 8Admin Note: given in clinic Medications Aspirin Enteric Coated 81 mg oral delayed release tablet See Instructions, # 90 tablet, Refills 1 Tot. Refills 1, 1 TABLET BY MOUTH DAILY, [id number] Start Date: 03/17/19 Status: Ordered buPROPion 300 mg/24 hours (XL) oral tablet, extended release 1 tablet = 300 mg, By Mouth, Daily, # 30 tablet, 11 Refills, Maintenance, 10/07/19 14:15:00 EST, ERTablet, [id number], 177, cm, 09/27/19 8:18:00 EST, Height, 119.9, kg, 05/13/19 16:58:00 EDT, Dry Weight Start Date: 10/07/19 Status: Ordered dicyclomine 20 mg oral tablet 1 tablet, By Mouth, 4 times a day, PRN NEEDED, # 360 tablet, 1 Refills, Maintenance, 04/02/20 6:38:00 EDT, [facility], 177, cm, 09/27/19 8:18:00 EST, Height, 119.9, kg, 05/13/19 16:58:00 EDT,Dry Weight Start Date: 04/02/20 Status: Ordered Eliquis 5 mg oral tablet 1 tablet = 5 mg, By Mouth, 2 times a day, # 60 tablet, 8 Refills, Maintenance, 12/17/19 10:31:00 EDT, Tablet, [facility]/pharmacy #[id number], 177, cm, 09/27/19 8:18:00 EST, Height, 119.9, kg, 05/13/19 16:58:00 EDT, Dry Weight Start Date: 12/17/19 Stop Date: 09/12/20 Status: Ordered miconazole 2% topical cream 1 application, Topically, 2 times a day, # 15 Gm, 0 Refills, Maintenance, 07/12/18 9:36:27 EST, Cream, 1 application Topically 2 times a day Start Date: 07/12/18 Status: Ordered omeprazole 20 mg oral enteric coated capsule 1 capsule, By Mouth, 2 times a day, # 60 capsule, 11 Refills, Maintenance, 05/05/20 9:56:00 EDT, [facility]/pharmacy #[id number], 177, cm, 09/27/19 8:18:00 EST, Height, 119.9, kg, 05/13/19 16:58:00 EDT, Dry Weight Start Date: 05/05/20 Stop Date: 04/30/21 Status: Ordered Toprol XL 25 mg oral tablet, extended release 25 mg, 1, tablet, By Mouth, Daily, # 30 tablet, Refills 11, Tot. Refills 11, Maintenance, 01/14/20 14:44:00 EDT, Route to Pharmacy Electronically, [facility]/pharmacy #[id number], 177, cm, 09/27/19 8:18:00 EST, Height, 119.9, kg, 05/13/19 16:58:00 EDT, Dry Weight Start Date: 01/14/20 Stop Date: 01/08/21 Status: Ordered Vitamin D3 2000 intl units oral tablet 1 tablet = 2,000 International_Units, By Mouth, Daily, # 90 tablet, 0 Refills, Maintenance, 05/05/20 9:42:00 EDT, [facility]/pharmacy #[id number], 177, cm, 09/27/19 8:18:00 EST, Height, 119.9, kg, 05/13/19 16:58:00 EDT, Dry Weight Start Date: 05/05/20 Status: Ordered Problem List Condition Effective Dates [...] fibrillation(Confirmed) Active History of atrial fibrillati on 2011(Confirmed) 4, 5, 6, 7, 8, 9 Active IBS [Irritable bowel syndrome](Confirmed) 10, 11, 12 Active Insomnia(Confirmed) Active Depression, major(Confirmed) Active Mitral valve insufficiency(C onfirmed) 13, 14 Active Myofascial pain(Confirmed) 15 Active Status post patch closure of ASD(Confirmed) Active Vitamin D deficiency(Confirmed) Active 1neos 2documented at [facility];referred repair 3UNDEFINED, BIOPSY PENDING 4ablated 08-08 [...]
--- OUTSIDE RECORDS SUMMARY | 2023-06-29 02:57 | XMS_ITS | Continuity of Care Document ---
Author Name Unknown Organization [facility] Josh lt Address [address] [place] [address]- Care Team Providers Care Precinct Commanding Officer Name Role Phone Miroslava CURTIS, Foreign Woodson Primary Care Physician [phone] Encounter [facility] Date(s): 06/30/21 - 07/30/21 [facility] Adult [address] [place] [address]- Allergies, Adverse Reactions, Alerts Substance Reaction Severity [...] 04/30/08 Give n 1Result Comment: [06/12/2018] [facility]-[id number] 2Result Comment: [06/26/2013] ORDERRED BY FOREIGN ACEVEDO MD 3Admin Note: historical data 4Admin Note: [employer] [facility] VIS [phone] given 5Result Comment: error 6Admin Note: h1n1 also 7Result Comment: LOT #[id number]; PREVIOUSLY COMPLETED INJECTION HAD NOT BEEN GIVEN. 8Admin Note: given in clinic Medications dicyclomine 20 mg oral tablet 1 tablet, By Mouth, 4 times a day, PRN NEEDED, # 360 tablet, 1 Refills, Maintenance, 02/02/21 7:03:00 EDT, [facility], 177, cm, 11/10/20 14:43:00 EDT, Height, 119.9, kg, 05/13/19 16:58:00 EDT, Dry Weight Start Date: 02/02/21 Status: Ordered duloxetine 30 mg oral enteric coated capsule 1 capsule, By Mouth, 2 times a day, # 180 capsule, 2 Refills, [facility], 177, cm, 05/06/21 10:48:00 EDT, Height Start Date: 07/01/21 Status: Ordered duloxetine 30 mg oral enteric coated capsule 1 capsule, By Mouth, 2 times a day, # 180 capsule, 2 Refills, 07/01/21 15:38:00 EDT, [id number], 177, cm, 05/06/21 10:48:00 EDT, Height Start Date: 07/01/21 Status: Ordered Eliquis 5 mg oral tablet 1 tablet = 5 mg, By Mouth, 2 times a day, # 60 tablet, 11 Refills, Maintenance, 01/28/21 12:28:00 EDT, Tablet, [id number], 177, cm, 11/10/20 14:43:00 EDT, Height, 119.9, kg, 05/13/19 16:58:00EDT, Dry Weight Start Date: 01/28/21 Stop Date: 01/23/22 Status: Ordered omeprazole 20 mg oral enteric [...] tablet, Refills 11, Tot. Refills 11, Maintenance, 02/01/21 8:19:00 EDT, Route to Pharmacy Electronically, [facility]/pharmacy #[id number], 177, cm, 11/10/20 14:43:00 EDT, Height, 119.9, kg, 05/13/19 16:58:00 EDT, Dry Weight Start Date: 02/01/21 Stop Date: 01/27/22 Status: Ordered Vitamin D3 1000 intl units oral tablet 1 tablet, By Mouth, Daily, # 30 tablet, 5 Refills, Maintenance, 12/03/20 17:56:00 EDT, [facility] ST[facility], 177, cm, 11/10/20 14:43:00 EDT, Height, 119.9, [...] 11/08/20 Active Insomnia(Confirmed) Active Current use of halfway anticoagulation(Confirmed) Active Depression, major(Confirmed) Active Mitral valve insufficiency(C onfirmed) 8, 9 Active Myofascial pain(Confirmed) 10 Active Lung nodule PET 2019 /no vch ng ct angio 2008(Confirmed) 10/24/19 Active Obstructive sleep apnea synd shaji ahi10.08/2020(Confirmed) 11, 12 Active Paroxysmal A-fib(Confirmed) 13, 14, 15, 16, 17, 18 Active Status post patch closure of ASD(Confirmed) Active Vitamin D deficiency(Confirmed) Active 1neos 2documented at [facility];referred repair 3UNDEFINED, BIOPSY PENDING 4had EGD 5Confirmed [...]
--- OUTSIDE RECORDS SUMMARY | 2023-06-29 02:57 | XMS_ITS | Continuity of Care Document ---
Author Name Unknown Organization [facility] Address [address] [place] [address]- Care Team Providers Care Survival Equipment Repairer Name Role Phone Miroslava CURTIS, Foreign Woodson Primary Care Physician Encounter [facility] Date(s): 02/24/22 - 03/26/22 [facility] [address] [place] [address]- [place] Allergies, Adverse Reactions, Alerts No Known Allergies Immunizations Given and Recorded Vaccine Date Status Refusal Reason influenza virus vaccine, inactivated 1 08/04/21 Gi kumar influenza virus vaccine, inactivated 09/27/19 Give n influenza virus vaccine, inactivated 2 06/12/18 Gi kumar influenza virus vaccine, inactivated 06/16/16 Give n influenza virus vaccine, inactivated 3 06/26/13 Gi kumar SARS-CoV-2 (COVID-19) mRNA BNT-162b2 vac 11/10/20 Recorded tetanus-diphtheria toxoids (Td) 02/02/18 Given tetanus-diphtheria toxoids (Td) 4 12/20/98 Given FluLaval (oldterm) 04/25/12 Given FluLaval (oldterm) 5 07/08/10 Given tetanus/diphtheria/pertussis, acel(Tdap) 6 04/25/12 Given Influenza Virus Vaccine (oldterm) 7 05/28/09 Given Pneumococcal Vaccine (oldterm) 8 08/19/08 Given Influenza Inactive (IM) (oldterm) 9 08/02/08 Given Tet/Diphth/Acel, Pertussis (oldterm) 04/30/08 Give n 1Result Comment: [facility]-[id number] 2Result Comment: [06/12/2018] [facility]-[id number] 3Result Comment: [06/26/2013] ORDERRED BY FOREIGN ACEVEDO MD 4Admin Note: historical data 5Admin Note: [place] of [facility] VIS [phone] given 6Result Comment: error 7Admin Note: h1n1 also 8Result Comment: LOT #[id number]; PREVIOUSLY COMPLETED INJECTION HAD NOT BEEN GIVEN. 9Admin Note: given in clinic Medications amiodarone 200 mg oral tablet 400 mg, 2, tablet, By Mouth, Daily, # 60 tablet, Refills 1, Tot. Refills 1, Maintenance, 02/25/22 12:03:00 EDT, Route to Pharmacy Electronically, [facility]/pharmacy #[id number], 177, cm, 02/18/22 10:35:00 EDT, Height, 115.9, kg, 02/18/22 10:29:00 EDT, Dry Weight Start Date: 02/25/22 Stop Date: 04/26/22 Status: Ordered dicyclomine 20 mg oral tablet 1 tablet, By Mouth, 4 times a day, PRN NEEDED, # 360 tablet, 1 Refills, [id number], 177, cm, 08/05/21 11:04:00 EST, Height Start Date: 01/02/22 Status: Ordered duloxetine 30 mg oral enteric coated capsule 1 capsule = 30 mg, By Mouth, 2 times a day, # 180 capsule, 0 Refills, Maintenance, 12/02/21 14:06:00 EDT, Partial fill upon patient request if the prescription is for a schedule II opioid drug. Start Date: 12/02/21 Stop Date: 03/02/22 Status: Ordered Eliquis 5 mg oral tablet See Instructions, TAKE 1 TABLET BY MOUTH TWICE A DAY FOR 30 DAYS, # 180 tablet, 3 Refills, [facility], 177, cm, 02/18/22 10:35:00 EDT, Height, 115.9, kg, 02/18/22 10:29:00 EDT, Dry Weight Start Date: 03/01/22 Status: Ordered Eliquis 5 mg oral tablet 1 tablet = 5 mg, By Mouth, 2 times a day, # 60 tablet, 11 Refills, Maintenance, 01/27/22 17:05:00 EDT, Tablet Start Date: 01/27/22 Stop Date: 01/22/23 Status: Ordered omeprazole 20 mg oral enteric coated capsule 1 capsule, By Mouth, 2 times a day, # 60 capsule, 11 Refills, Maintenance, 05/05/20 9:56:00 EDT, [facility]/pharmacy #[id number], 177, cm, 09/27/19 8:18:00 EST, Height, 119.9, kg, 05/13/19 16:58:00 EDT, Dry Weight Start Date: 05/05/20 Stop Date: 04/30/21 Status: Ordered Toprol XL 50 mg oral tablet, extended release 50 mg, 1, tablet, By Mouth, Daily, # 30 tablet, Refills 11, Tot. Refills 11, Maintenance, 08/26/21 14:15:00 EST, Route to Pharmacy Electronically, [facility]/pharmacy #[id number], Partial fill upon patient request if the prescription is for a schedule II opioid . Start Date: 08/26/21 Status: Ordered Vitamin D3 1000 intl units oral tablet See Instructions, TAKE 1 TABLET BY MOUTH EVERY DAY, # 30 tablet, 2 Refills, [facility], 177, cm, 08/05/21 11:04:00 EST, Height Start Date: 08/26/21 Status: Ordered Problem List Condition Effective Dates Status Health Status Inform ant Adult BMI 30.0-30.9 kg/sq m(Confirmed) Active Ascending aortic aneurysm st able 4cm 2020/stable 2021(Confirmed) 07/31/19 Active Anxiety(Confirmed) 03/13/08 Active Traumatic arthritis of right foot(Confirmed) 1 Active Atrial septal defect, secundum(Confirmed) 2 08/24/09 Active Cholesteatoma(Confirmed) Active COVID-19(Confirmed) 01/02/22 Active Chronic GERD EGD 2004(Confirmed) 3 Active IBS [Irritable bowel syndrome](Confirmed) 4, 5, 6 Active Impaired fasting glucose(Confirmed) 11/08/20 Active Insomnia(Confirmed) Active Current use of buttermaker continuous churn anticoagulation(Confirmed) Active Depression, major(Confirmed) Active Mitral valve insufficiency(C onfirmed) 7, 8 Active Myofascial pain(Confirmed) 9 Active Lung nodule PET 2019 /no vch ng ct angio 2008/stale 2021(Confirmed) 10/24/19 Active Obese class II(Confirmed) Active Obstructive sleep apnea synd shaji ahi10.08/2020(Confirmed) 10, 11 Active Paroxysmal A-fib catheter ab lation 2011(Confirmed) 12, 13, 14, 15, 16, 17 Active Status post patch closure of ASD(Confirmed) Active Vitamin D deficiency(Confirmed) Active 1neos 2documented at [facility];referred repair 3had EGD 4Confirmed by second opinion consultation 5seering GI still 6Dr China 7no need 8antibiotic prophylaxis;reminded;is aware 9low back;sees spine sports 10AHI 5.9 2008 study 11no significant issues per polysomnogram 12ablated 08-08 13May 07;echo EF 55% 14echo january 04 ef 55 % 15reduced EF 45% 16normal coronaries per angiography 17abnormal stress test; cardiac cath pending Social History Social History Type Response Smoking Status Never smoker; Tobacc o user in household: No entered on: 01/17/17 Sex
--- OUTSIDE RECORDS SUMMARY | 2023-06-29 02:57 | XMS_ITS | Continuity of Care Document ---
Author Name Unknown Organization [facility] Josh lt Address [address] [place] [address]- Care Team Providers Care Wellhead Pumper Name Role Phone Foreign [place] MD Primary Care Physician Encounter [facility] Date(s): 01/24/20 - 05/23/20 [facility] Adult [address] [place] [address]- [facility] Encounter Diagnosis Cardiomyopathy ef41% MRI Jul 2019(Discharge Diagnosis) - 04/20/20 Ascending aortic aneurysm 4.0 cm MRI (Discharge Diagnosis) - 04/20/20 Depression, major(Discharge Diagnosis) - 04/20/20 Traumatic arthritis of right foot(Discharge Diagnosis) - 04/20/20 Attending Physician: Foreign [place] MD Allergies, Adverse [...] (oldterm) 04/30/08 Give n 1Result Comment: [06/12/2018] [facility]-[id number] 2Result Comment: [06/26/2013] ORDERRED BY FOREIGN [place] MD 3Admin Note: historical data 4Admin Note: [employer] [facility] [facility] [place] VIS [id number] given 5Result Comment: error 6Admin Note: h1n1 [...] 11 Refills, Maintenance, 10/07/19 14:15:00 EST, ERTablet, [facility]/pharmacy #[id number], 177, cm, 09/27/19 8:18:00 EST, Height, 119.9, kg, 05/13/19 16:58:00 EDT, Dry Weight Start Date: 10/07/19 Status: Ordered dicyclomine 20 mg oral tablet 1 tablet, By Mouth, 4 times a day, PRN NEEDED, # 360 tablet, 1 Refills, Maintenance, 04/02/20 6:38:00 EDT, [facility], 177, cm, 09/27/19 8:18:00 EST, Height, 119.9, kg, 05/13/19 16:58:00 EDT,Dry Weight Start Date: 04/02/20 Status: Ordered Eliquis 5 mg oral tablet 1 tablet = 5 mg, By Mouth, 2 times a day, # 60 tablet, 8 Refills, Maintenance, 12/17/19 10:31:00 EDT, Tablet, [facility]/pharmacy #[id number], 177, cm, 09/27/19 8:18:00 EST, Height, [...] capsule, 11 Refills, Maintenance, 05/05/20 9:56:00 EDT, [facility]/pharmacy #[id number], 177, cm, 09/27/19 8:18:00 EST, Height, 119.9, kg, 05/13/19 16:58:00 EDT, Dry Weight Start Date: 05/05/20 Stop Date: 04/30/21 Status: Ordered Toprol XL 25 mg oral tablet, extended release 25 mg, 1, tablet, By Mouth, Daily, # 30 tablet, Refills 11, Tot. Refills 11, Maintenance, 01/14/20 14:44:00 EDT, Route to Pharmacy Electronically, [facility]/pharmacy #[id number], 177, cm, 09/27/19 8:18:00 EST, Height, 119.9, kg, 05/13/19 16:58:00 EDT, Dry Weight Start Date: 01/14/20 Stop Date: 01/08/21 Status: Ordered Vitamin D3 2000 intl units oral tablet 1 tablet = 2,000 International_Units, By Mouth, Daily, # 90 tablet, 0 Refills, Maintenance, 05/05/20 9:42:00 EDT, [facility]/pharmacy #[id number], 177, cm, 09/27/19 8:18:00 EST, Height, [...] Vitamin D deficiency(Confirmed) Active 1neos 2documented at [facility];referred repair 3UNDEFINED, BIOPSY PENDING 4ablated 08-08 5May 07;echo EF 55% 6echo january 04 ef 55 % 7reduced EF 45% 8normal coronaries per angiography 9abnormal stress test; cardiac cath pending 10Confirmed by second opinion consultation 11seering GI still 12Dr China 13no need 14antibiotic prophylaxis;reminded;is aware 15low back;sees spine sports Diagnosis Diagnosis Type Effective Dates Health Status Clinical Service Informant Cardiomyopathy ef41% MRI Jul 2019 Discharge Diagnosis 04/20/20 Ascending aortic aneurysm 4.0 cm MRI Discharge Diagnosis 04/20/20 Depression, major Discharge Diagnosis 04/20/20 Traumatic arthritis of right foot Discharge Diagnosis 04/20/20 Social History Social History Type Response Smoking Status Never smoker; Tobacc o user in household: No entered on: 01/17/17 Sex
--- OUTSIDE RECORDS SUMMARY | 2023-06-29 02:57 | XMS_ITS | Continuity of Care Document ---
Author Name Unknown Organization [facility] ter Address [address] [place] [address]- Care Team Providers Care Animal Shelter Worker Name Role Phone Geovanna Ada CEVALLOS Primary Care Physician [phone] Encounter [facility] Date(s): 05/06/22 - 06/09/[address] [address] Attending Physician: Bobby Martínez Admitting Physician: Bobby Martínez Referring Physician: Bobby Martínez Allergies, Adverse Reactions, Alerts No Known Allergies Immunizations Given and Recorded Vaccine Date Status Refusal Reason SARS-CoV-2 mRNA (iphykee-osct-ciyfy) vax 1 04/18/22 Given SARS-CoV-2 (COVID-19) mRNA [...] Give n 1Result Comment: [facility]-[id number] 2Result Comment: [facility]-[id number] 3Result Comment: [06/12/2018] [facility]-[id number] 4Result Comment: [06/26/2013] ORDERRED BY GRAYSON ACEVEDO MD 5Admin Note: historical data 6Admin Note: vzaar of [facility] [place] [place] VIS [id number] given 7Result Comment: error 8Admin Note: h1n1 also 9Result Comment: LOT #[id number]; PREVIOUSLY COMPLETED INJECTION HAD NOT BEEN GIVEN. 10Admin Note: given in clinic Medications amiodarone 200 mg oral tablet 200 mg, 1, tablet, By Mouth, Daily, # 30 tablet, Refills 6, Tot. Refills 6, Maintenance, 03/28/22 12:22:00 EDT, Route to Pharmacy Electronically, [facility]/pharmacy #[id number], 177, cm, 02/18/22 10:35:00 EDT, Height, 115.9, kg, 02/18/22 10:29:00 EDT, Dry Weight Start Date: 03/28/22 Stop Date: 10/24/22 Status: Ordered Augmentin 875 mg-125 mg oral tablet 1 tablet, By Mouth, Every 12 hours, for 7 days, # 14 tablet, 0 Refills, Acute 06/14/22 11:23:00 EDT, 06/07/22 11:23:00 EDT, Tablet, [facility]/pharmacy #[id number], Partial fill upon patient request if the prescription is for a schedule II opioid drug., 177, cm, 1... Start Date: 06/07/22 Stop Date: 06/14/22 Status: Ordered benzonatate 200 mg oral capsule 1 capsule = 200 mg, By Mouth, 3 times a day, for 7 days, # 21 capsule, 0 Refills, Acute 06/14/22 11:23:00 EDT, 06/07/22 11:23:00 EDT, Capsule, [facility]/pharmacy #[id number], Partial fill upon patient request ifthe prescription is for a schedule II opioid drug.,... Start Date: 06/07/22 Stop Date: 06/14/22 Status: Ordered dicyclomine 20 mg oral tablet 1 tablet, By Mouth, 4 times a day, PRN NEEDED, # 360 tablet, 1 Refills, [facility], 177, cm, 08/05/21 11:04:00 EST, Height Start Date: 01/02/22 Status: Ordered duloxetine 30 mg oral enteric coated capsule 1 capsule = 30 mg, By Mouth, Daily, # 30 capsule, 0 Refills, Maintenance, 04/20/22 21:02:00 EDT, Partial fill upon patient request if the prescription is for a schedule II opioid drug. Start Date: 04/20/22 Status: Ordered Eliquis 5 mg oral tablet See Instructions, TAKE 1 TABLET BY MOUTH TWICE A DAY FOR 30 DAYS, # 180 tablet, 3 Refills, [facility], 177, cm, 02/18/22 10:35:00 EDT, Height, 115.9, kg, 02/18/22 10:29:00 EDT, Dry Weight Start Date: 03/01/22 Status: Ordered omeprazole 20 mg oral delayed release tablet 1 tablet = 20 mg, By Mouth, 2 times a day, # 60 tablet, 0 Refills, Maintenance, 05/13/22 17:23:00 EDT, EC Tablet, [facility]/pharmacy #[id number], Partial fill upon patient request if the prescription is for a schedule II opioid drug., 177, cm, 05/13/22 13:26:00 E... Start Date: 05/13/22 Stop Date: 06/12/22 Status: Ordered Toprol XL 50 mg oral tablet, extended release 50 mg, 1, tablet, By Mouth, Daily, # 30 tablet, Refills 11, Tot. Refills 11, Maintenance, 08/26/21 14:15:00 EST, Route to Pharmacy Electronically, [facility]/pharmacy #[id number], Partial fill upon patient request if the prescription is for a schedule II opioid dr... Start Date: 08/26/21 Status: Ordered Vitamin D3 1000 intl units oral tablet 1 tablet, By Mouth, Daily, # 90 tablet, 0 Refills, [facility], 177, cm, 02/18/22 10:35:00 EDT,Height, 115.9, kg, 02/18/22 10:29:00 EDT, Dry Weight Start Date: 04/01/22 Status: Ordered Wellbutrin = 150 mg, By Mouth, Daily, 0 Refills, Maintenance, 05/13/22 6:24:00 EDT, Partial fill upon patient request if the prescription is for a schedule II opioid drug. Start Date: 05/13/22 Status: Ordered Problem List Condition Confirmation Course Effective Dates Status H ealth Status Informant Adult BMI 30.0-30.9 kg/sq m Confirmed Active Ascending aortic aneurysm stable 4cm 2020/2021 Confirmed 07/31/19 Active Anxiety Confirmed 03/13/08 Active Traumatic arthritis of right foot 1 Confirmed Active Atrial septal defect, secundum 2 Confirmed 08/24/09 Active Cholesteatoma Confirmed Active COVID-19 Confirmed 01/02/22 Active Hearing loss in right ear/prior sx ear drum Confirmed Active IBS [Irritable bowel syndrome] 3, 4, 5 Confirmed Active Impaired fasting glucose Confirmed 11/08/20 Active Insomnia Confirmed Active Current use of termite helper anticoagulation/advi sed medic alert Confirmed Active Depression, [...] D deficiency Confirmed Active 1neos 2documented at [facility];referred repair 3Confirmed by second opinion consultation [...] on: 01/17/17 Sex Patient Care team information Personnel Name: Ada Austin NP Address: Address: [address] [place] [address]- [place]
--- OUTSIDE RECORDS SUMMARY | 2023-06-29 02:57 | XMS_ITS | Continuity of Care Document ---
Author Name Unknown Organization [facility] Address [address] [place] [address]- Care Team Providers Care Single Pass Soil Stabilizer Operator Name Role Phone Miroslava CURTIS, Foreign Woodson Primary Care Physician [phone] Encounter [facility] Date(s): 12/17/19 - 01/16/20 [facility] [address] [place] [address]- [facility] Attending Physician: Corie Jeronimo Admitting Physician: Corie Jeronimo Referring Physician: AdmtrCorie Allergies, Adverse Reactions, Alerts Substance Reaction Severity [...] (oldterm) 04/30/08 Give n 1Result Comment: [06/12/2018] [facility]-[id number] 2Result Comment: [06/26/2013] ORDERRED BY FOREIGN ACEVEDO MD 3Admin Note: historical data 4Admin Note: [employer] of [facility] VIS [id number] given 5Result Comment: error 6Admin Note: h1n1 [...] UP TO 4 TIMES A DAY, # 120 tablet, 3 Refills, Soft Stop, 12/31/19 8:20:00 EDT, [id number], 177, cm, 09/27/19 8:18:00 EST, Height, 119.9, kg, 05/13/19 16:58:00EDT, Dry Weight Start Date: 12/31/19 Status: Ordered Eliquis 5 mg oral tablet 1 tablet = 5 mg, By Mouth, 2 times a day, # 60 tablet, 8 Refills, Maintenance, 12/17/19 10:31:00 EDT, Tablet, [id number], 177, cm, 09/27/19 8:18:00 EST, Height, 119.9, kg, 05/13/19 16:58:00 EDT, Dry Weight Start Date: 12/17/19 Stop Date: 09/12/20 Status: Ordered miconazole 2% topical cream 1 application, Topically, 2 times a day, # 15 Gm, 0 Refills, Maintenance, 07/12/18 9:36:27 EST, Cream, 1 application Topically 2 times a day Start Date: 07/12/18 Status: Ordered Toprol XL 25 mg oral tablet, extended release 25 mg, 1, tablet, By Mouth, Daily, # 30 tablet, Refills 11, Tot. Refills 11, Maintenance, 01/14/20 14:44:00 EDT, Route to Pharmacy Electronically, [facility]/pharmacy #[id number], 177, cm, 09/27/19 8:18:00 EST, Height, 119.9, kg, 05/13/19 16:58:00 EDT, Dry Weight Start Date: 01/14/20 Stop Date: 01/08/21 Status: Ordered Vitamin D3 2000 intl units oral tablet 1 tablet = 2,000 International_Units, By Mouth, Daily, # 90 tablet, 0 Refills, Maintenance, 10/07/19 13:58:00 EST, [facility]/pharmacy #[id number], 177, cm, 09/27/19 8:18:00 EST, Height, 119.9, kg, 05/13/19 16:58:00 EDT, Dry Weight Start Date: 10/07/19 Status: Ordered Problem List Condition Effective Dates [...] Vitamin D deficiency(Confirmed) Active 1neos 2documented at [facility];referred repair 3UNDEFINED, BIOPSY PENDING 4ablated 08-08 5May [...]
--- OUTSIDE RECORDS SUMMARY | 2023-06-29 02:57 | XMS_ITS | Continuity of Care Document ---
Author Name Unknown Organization [facility] Josh lt Address [address] [place] [address]- Care Team Providers Care Rubber Flap Cutter Name Role Phone Miroslava CURTIS, Foreign Woodson Primary Care Physician [phone] Encounter [facility] Date(s): 08/25/21 - 09/24/21 [facility] Adult [address] [place] [address]- Allergies, Adverse Reactions, Alerts No Known Allergies [...] Pertussis (oldterm) 04/30/08 Give n 1Result Comment: [facility]-[id number] 2Result Comment: [06/12/2018] [facility]-[id number] 3Result Comment: [06/26/2013] ORDERRED BY FOREIGN ACEVEDO MD 4Admin Note: historical data 5Admin Note: [employer] [facility] [place] [id number] given 6Result Comment: error 7Admin Note: h1n1 also 8Result Comment: LOT #[id number]; PREVIOUSLY COMPLETED INJECTION HAD NOT BEEN GIVEN. 9Admin Note: given in clinic Medications dicyclomine 20 mg oral tablet 1 tablet, By Mouth, 4 times a day, PRN NEEDED, # 360 tablet, 1 Refills, Maintenance, 02/02/21 7:03:00 EDT, [facility], 177, cm, 11/10/20 14:43:00 EDT, Height, 119.9, kg, 05/13/19 16:58:00 EDT, Dry Weight Start Date: 02/02/21 Status: Ordered duloxetine 30 mg oral enteric coated capsule 1 capsule = 30 mg, By Mouth, Daily, # 90 capsule, 3 Refills, Maintenance, 08/26/21 9:26:00 EST, [id number], Partial fill upon patient request if the prescription is for a schedule II opioid drug., 177, cm, 08/05/21 11:04:00 EST, Height Start Date: 08/26/21 Status: Ordered duloxetine 60 mg oral enteric coated capsule 1 capsule = 60 mg, By Mouth, Daily, in am, # 90 capsule, 0 Refills, Maintenance, 08/26/21 9:25:00 EST, EC Capsule, [id number], Partial fill upon patient request if the prescription is for a schedule II opioid drug., 177, cm, 08/05/21 11:04:00... Start Date: 08/26/21 Status: Ordered Eliquis 5 mg oral tablet [...] capsule, 11 Refills, Maintenance, 05/05/20 9:56:00 EDT, [facility]/pharmacy #[id number], 177, cm, 09/27/19 8:18:00 EST, Height, 119.9, kg, 05/13/19 16:58:00 EDT, Dry Weight Start Date: 05/05/20 Stop Date: 04/30/21 Status: Ordered Toprol XL 50 mg oral tablet, extended release 50 mg, 1, tablet, By Mouth, Daily, # 30 tablet, Refills 11, Tot. Refills 11, Maintenance, 08/26/21 14:15:00 EST, Route to Pharmacy Electronically, [facility]/pharmacy #[id number], Partial fill upon patient request if the prescription is for a schedule II opioid . Start Date: 08/26/21 Status: Ordered Vitamin D3 1000 intl units oral tablet See Instructions, TAKE 1 TABLET BY MOUTH EVERY DAY, # 30 tablet, 2 Refills, [facility], 177, cm, 08/05/21 11:04:00 EST, Height Start Date: 08/26/21 Status: Ordered Problem List Condition Effective Dates Status Health Status Inform ant Adult BMI 30.0-30.9 kg/sq m(Confirmed) Active Ascending aortic aneurysm st able 4cm 2020(Confirmed) 07/31/19 Active Anxiety(Confirmed) 03/13/08 Active Traumatic arthritis of right foot(Confirmed) 1 Active Atrial septal defect, secundum(Confirmed) 2 08/24/09 Active Cholesteatoma(Confirmed) Active Chronic GERD EGD 2004(Confirmed) 3 Active IBS [Irritable bowel syndrome](Confirmed) 4, 5, 6 Active Impaired fasting glucose(Confirmed) 11/08/20 Active Insomnia(Confirmed) Active Current use of assisted anticoagulation(Confirmed) Active Depression, major(Confirmed) Active Mitral valve insufficiency(C onfirmed) 7, 8 Active Myofascial pain(Confirmed) 9 Active Lung nodule PET 2019 /no vch ng ct angio 2008(Confirmed) 10/24/19 Active Obese class II(Confirmed) Active Obstructive sleep apnea synd shaji ahi10.08/2020(Confirmed) 10, 11 Active Paroxysmal A-fib catheter ab lation 2011(Confirmed) 12, 13, 14, 15, 16, 17 Active Status post patch closure of ASD(Confirmed) Active Vitamin D deficiency(Confirmed) Active 1neos 2documented at [facility];referred repair 3had EGD 4Confirmed by second [...]
--- OUTSIDE RECORDS SUMMARY | 2023-06-29 02:57 | XMS_ITS | Continuity of Care Document ---
Author Name Unknown Organization [employer] ter Address [address] [place] [address]- Care Team Providers Care Account Development Representative Name Role Phone Geovanna Ada CEVALLOS Primary Care Physician [phone] [place] [facility] [place] - 06/16/[address] [address] Discharge Disposition: A-D/C Home Attending Physician: Rohit Dunlap MD Admitting Physician: Rohit Dunlap MD Referring Physician: Beau Quijano MD Allergies, Adverse Reactions, Alerts No Known Allergies Immunizations Given and Recorded Vaccine Date Status Refusal Reason SARS-CoV-2 mRNA ([id number]) vax 1 04/18/22 Given SARS-CoV-2 (COVID-19) mRNA [...] (oldterm) 04/30/08 Give n 1Result Comment: [facility]-[id number] 2Result Comment: [facility]-[id number] 3Result Comment: [06/12/2018] [facility]-[id number] 4Result Comment: [06/26/2013] ORDERRED BY GRAYSON ACEVEDO MD 5Admin Note: historical data 6Admin Note: Biomedical Ghazal of [facility] VIS [phone] given 7Result Comment: error 8Admin Note: h1n1 also 9Result Comment: LOT #[id number]; PREVIOUSLY COMPLETED INJECTION HAD NOT BEEN GIVEN. 10Admin Note: given in clinic Medications amiodarone 200 mg oral tablet 200 mg, 1, tablet, By Mouth, Daily, # 30 tablet, Refills 6, Tot. Refills 6, Maintenance, 03/28/22 12:22:00 EDT, Route to Pharmacy Electronically, [facility]/pharmacy #[id number], 177, cm, 02/18/22 10:35:00 EDT, Height, 115.9, kg, 02/18/22 10:29:00 EDT, Dry Weight Start Date: 03/28/22 Stop Date: 10/24/22 Status: Ordered dicyclomine 20 mg oral tablet 1 tablet, By Mouth, 4 times a day, PRN NEEDED, # 360 tablet, 1 Refills, [facility] ST[facility] 41092, 177, cm, 08/05/21 11:04:00 EST, Height Start Date: 01/02/22 Status: Ordered Eliquis 5 mg oral tablet See Instructions, TAKE 1 TABLET BY MOUTH TWICE A DAY FOR 30 DAYS, # 180 tablet, 3 Refills, [facility], 177, cm, 02/18/22 10:35:00 EDT, Height, 115.9, kg, 02/18/22 10:29:00 EDT, Dry Weight Start Date: 03/01/22 Status: Ordered omeprazole 20 mg oral delayed release tablet 1 tablet = 20 mg, By Mouth, 2 times a day, # 60 tablet, 0 Refills, Maintenance, 05/13/22 17:23:00 EDT, EC Tablet, [facility]/pharmacy #[id number], Partial fill upon patient request if the prescription is for a schedule II opioid drug., 177, cm, 05/13/22 13:26:00 E... Start Date: 05/13/22 Stop Date: 06/12/22 Status: Ordered Toprol XL 50 mg oral tablet, extended release 50 mg, 1, tablet, By Mouth, Daily, # 30 tablet, Refills 11, Tot. Refills 11, Maintenance, 08/26/21 14:15:00 EST, [id number] Partial fill upon patient request if the prescription is for a schedule II opioid drCher. Start Date: 08/26/21 Status: Ordered Vitamin D3 1000 intl units oral tablet 1 tablet, By Mouth, Daily, # 90 tablet, 0 Refills, [facility] STORE 61695, 177, cm, 02/18/22 10:35:00 EDT,Height, 115.9, kg, [...] Confirmed Active Ascending aortic aneurysm stable 4cm 2021 Confirmed 07/31/19 Active Anxiety Confirmed 03/13/08 Active Traumatic arthritis of right foot 1 Confirmed Active Atrial septal defect, secundum 2 Confirmed 08/24/09 Active Cholesteatoma Confirmed Active COVID-19 Confirmed 01/02/22 Active Hearing loss in right ear/prior sx ear drum Confirmed Active IBS [Irritable bowel syndrome] 3, 4, 5 Confirmed Active Impaired fasting glucose Confirmed 11/08/20 Active Insomnia Confirmed Active Current use of correction anticoagulation/advi sed medic alert Confirmed Active Depression, major Confirmed Active Mitral valve insufficiency 6, 7 Confirmed Active Myofascial pain 8 Confirmed Active Lung nodule PET 2019 /no chng ct angio 2021 Confirmed 2/27/20 Active Obstructive sleep apnea syndrome ahi10.08/2020 9, 10 Confirmed Active Paroxysmal A-fib catheter ablation 2012 06, 12, 13, 14, 15, 16 Confirmed Active Status post patch closure of ASD Confirmed Active Severe obesity Confirmed Active Vitamin D deficiency Confirmed Active 1neos 2documented at [facility];referred repair 3Confirmed by second opinion consultation 4seering GI still 5Dr [place] 6no need 7antibiotic prophylaxis;reminded;is aware 8low back;sees spine sports 9AHI 5.9 2008 study 10no significant issues per polysomnogram 11ablated 08-08 -2011 12May 07;echo EF 55% 13echo january 04 ef 55 % 14reduced EF 45% 15normal coronaries per angiography 16abnormal stress test; cardiac cath pending Vital Signs Most recent to oldest [Reference Range]: 1 2 3 Height 178 cm (06/16/22 11:22 AM) Weight 118.18 kg (06/16/22 11:22 AM) Oxygen Saturation [94-100 %] 94 % (06/16/22 12:56 PM) 93 % *L* (06/16/22 12:50 PM) 95 % (06/16/22 12:00 PM) Pulse Rate [55-90 bpm] 61 bpm (06/16/22 12:56 PM) 62 bpm (06/16/22 12:50 PM) 76 bpm (06/16/22 12:00 PM) Blood Pressure [90-138/55-84 mm Hg] 109/99mm Hg (06/16/22 12:56 PM) 111/86mm Hg (06/16/22 12:50 PM) 120/91mm Hg (06/16/22 12:00 PM) Respiratory Rate [16-30 br/min] 20 br/min (06/16/22 12:56 PM) 21 br/min (06/16/22 12:50 PM) 19 br/min (06/16/22 12:00 PM) Temperature [96.8-100.4 DegF] 98.2 DegF (06/16/22 11:16 AM) Liters per Minute 4 L/min (06/16/22 12:50 PM) Mode of Delivery (Oxygen) Room air (06/16/22 12:56 PM) Nasal cannula (06/16/22 12:50 PM) Room air (06/16/22 12:00 PM) Blood pressure sites Arm, left (06/16/22 12:56 PM) Arm, left (06/16/22 12:50 PM) Arm, left (06/16/22 12:00 PM) Temperature Route Oral (06/16/22 11:16 AM) Weight Obtained Via Patient/family stated (06/16/22 11:22 AM) Social History Social History Type Response Smoking Status Never smoker; Tobacc o user in household: No entered on: 01/17/17 Sex Patient Care team information Personnel Name: Ada Austin NP Address: Address: [address] [place] [address]
--- OUTSIDE RECORDS SUMMARY | 2023-06-29 02:57 | XMS_ITS | Continuity of Care Document ---
Author Name Unknown Organization [facility] Address [address] [place] [address]- Care Team Providers Care Gun Perforator Name Role Phone Miroslava CURTIS, Foreign Woodson Primary Care Physician Encounter [facility] [place] Date(s): 08/25/21 - 09/24/21 [facility] [address] [place] [address]- [place] Allergies, Adverse Reactions, Alerts No Known [...] (oldterm) 04/30/08 Give n 1Result Comment: [facility]-[id number] 2Result Comment: [06/12/2018] [facility]-[id number] 3Result Comment: [06/26/2013] ORDERRED BY FOREIGN ACEVEDO MD 4Admin Note: historical data 5Admin Note: [facility] [place] [phone] given 6Result Comment: error 7Admin Note: h1n1 also 8Result Comment: LOT #[id number]; PREVIOUSLY COMPLETED INJECTION HAD NOT BEEN GIVEN. 9Admin Note: given in clinic Medications dicyclomine 20 mg oral tablet 1 tablet, By Mouth, 4 times a day, PRN NEEDED, # 360 tablet, 1 Refills, Maintenance, 02/02/21 7:03:00 EDT, [facility], 177, cm, 11/10/20 14:43:00 EDT, Height, 119.9, [...] 08/26/21 14:15:00 EST, Route to Pharmacy Electronically, [facility]/pharmacy #[id number], Partial fill upon patient request if the prescription is for a schedule II opioid . Start Date: 08/26/21 Status: Ordered Vitamin D3 1000 intl units oral tablet See Instructions, TAKE 1 TABLET BY MOUTH EVERY DAY, # 30 tablet, 2 Refills, [facility] STORE 86302, 177, cm, 08/05/21 11:04:00 EST, Height Start [...] 11/08/20 Active Insomnia(Confirmed) Active Current use of chcf anticoagulation(Confirmed) Active Depression, major(Confirmed) Active Mitral valve [...] Vitamin D deficiency(Confirmed) Active 1neos 2documented at [facility];referred repair 3had EGD 4Confirmed by second opinion [...]
--- OUTSIDE RECORDS SUMMARY | 2023-06-29 02:58 | XMS_ITS | Continuity of Care Document ---
Author Name Unknown Organization [facility] Address [address] [place] [address]- Care Team Providers Care Side Framer Name Role Phone Miroslava CURTIS, Foreign Woodson Primary Care Physician [phone] Encounter [facility] Date(s): 02/24/22 - 03/26/22 [facility] [address] [place] [address]- [place] Allergies, Adverse Reactions, Alerts No Known [...] Pertussis (oldterm) 04/30/08 Give n 1Result Comment: [facility]-[id number] 2Result Comment: [06/12/2018] [facility]-[id number] 3Result Comment: [06/26/2013] ORDERRED BY FOREIGN ACEVEDO MD 4Admin Note: historical data 5Admin Note: [facility] [place] [phone] given 6Result Comment: error 7Admin Note: h1n1 also 8Result Comment: LOT #[id number]; PREVIOUSLY COMPLETED INJECTION HAD NOT BEEN GIVEN. 9Admin Note: given in clinic Medications amiodarone 200 mg oral tablet 400 mg, 2, tablet, By Mouth, Daily, # 60 tablet, Refills 1, Tot. Refills 1, Maintenance, 02/25/22 12:03:00 EDT, Route to Pharmacy Electronically, [facility]/pharmacy #[id number], 177, cm, 02/18/22 10:35:00 EDT, Height, 115.9, kg, 02/18/22 10:29:00 EDT, Dry Weight Start Date: 02/25/22 Stop Date: 04/26/22 Status: Ordered dicyclomine 20 mg oral tablet 1 tablet, By Mouth, 4 times a day, PRN NEEDED, # 360 tablet, 1 Refills, [facility], 177, cm, 08/05/21 11:04:00 EST, Height Start [...] # 180 tablet, 3 Refills, [facility], 177, cm, 02/18/22 10:35:00 EDT, Height, 115.9, [...] capsule, 11 Refills, Maintenance, 05/05/20 9:56:00 EDT, [facility]/pharmacy #[id number], 177, cm, 09/27/19 8:18:00 EST, Height, 119.9, kg, 05/13/19 16:58:00 EDT, Dry Weight Start Date: 05/05/20 Stop Date: 04/30/21 Status: Ordered Toprol XL 50 mg oral tablet, extended release 50 mg, 1, tablet, By Mouth, Daily, # 30 tablet, Refills 11, Tot. Refills 11, Maintenance, 08/26/21 14:15:00 EST, Route to Pharmacy Electronically, [facility]/pharmacy #[id number], Partial fill upon patient request if the prescription is for a schedule II opioid . Start Date: 08/26/21 Status: Ordered Vitamin D3 1000 intl units oral tablet See Instructions, TAKE 1 TABLET BY MOUTH EVERY DAY, # 30 tablet, 2 Refills, [facility] 42110, 177, cm, 08/05/21 11:04:00 EST, Height Start [...] 11/08/20 Active Insomnia(Confirmed) Active Current use of terminal operator anticoagulation(Confirmed) Active Depression, major(Confirmed) Active Mitral valve [...] Vitamin D deficiency(Confirmed) Active 1neos 2documented at [facility];referred repair 3had EGD 4Confirmed by second opinion [...]
--- OUTSIDE RECORDS SUMMARY | 2023-06-29 02:58 | XMS_ITS | Continuity of Care Document ---
Author Name Unknown Organization [facility] Address [address] [place] [address]- Care Team Providers Care Underwriter Mortgage Loan Name Role Phone Miroslava CURTIS, Foreign Woodson Primary Care Physician Encounter [facility] Date(s): 10/26/20 - 11/25/20 [facility] [address] [place] [address]- Allergies, Adverse Reactions, Alerts Substance Reaction Severity [...] 1Result Comment: [06/12/2018] [facility]-[id number] 2Result Comment: [06/26/2013] ORDERRED BY FOREIGN ACEVEDO MD 3Admin Note: historical data 4Admin Note: Biomedical Ghazal [facility] VIS [phone] given 5Result Comment: error 6Admin Note: h1n1 also 7Result Comment: LOT #[id number]; PREVIOUSLY COMPLETED INJECTION HAD NOT BEEN GIVEN. 8Admin Note: given in clinic Medications dicyclomine 20 mg oral tablet 1 tablet, By Mouth, 4 times a day, PRN NEEDED, # 360 tablet, 1 Refills, Maintenance, 04/02/20 6:38:00 EDT, [facility], 177, cm, 09/27/19 8:18:00 EST, Height, 119.9, kg, 05/13/19 16:58:00 EDT,Dry Weight Start Date: 04/02/20 Status: Ordered duloxetine 30 mg oral enteric coated capsule 1 capsule = 30 mg, By Mouth, 2 times a day, # 60 each, 6 Refills, Maintenance, 11/18/20 16:47:00 EDT, [facility]/pharmacy #[id number], Partial fill upon patient request if the prescription is for a schedule II opioid drug., 177, cm, 11/10/20 14:43:00 EDT, Height,... Start Date: 11/18/20 Status: Ordered Eliquis 5 mg oral tablet 1 tablet = 5 mg, By Mouth, 2 times a day, # 60 tablet, 8 Refills, Maintenance, 12/17/19 10:31:00 EDT, Tablet, [facility]/pharmacy #[id number], 177, cm, 09/27/19 8:18:00 EST, [...] 01/14/20 14:44:00 EDT, Route to Pharmacy Electronically, [facility]/pharmacy #[id number], 177, cm, 09/27/19 8:18:00 EST, Height, 119.9, kg, 05/13/19 16:58:00 EDT, Dry Weight Start Date: 01/14/20 Stop Date: 01/08/21 Status: Ordered Vitamin D3 1000 intl units oral tablet 1 tablet = 1,000 International_Units, By Mouth, Daily, # 30 tablet, 0 Refills, Maintenance, 11/10/20 15:04:00 EDT, Tablet, [facility]/pharmacy #[id number], Partial fill upon patient request [...] 11/08/20 Active Insomnia(Confirmed) Active Current use of longterm anticoagulation(Confirmed) Active Depression, major(Confirmed) Active Mitral valve insufficiency(C onfirmed) 8, 9 Active Myofascial pain(Confirmed) 10 Active Lung nodule PET 2019 /no vch ng ct angio 2008(Confirmed) 10/24/19 Active Obstructive sleep apnea synd shaji ahi 5.9(Confirmed) 11, 12 Active Paroxysmal A-fib(Confirmed) 13, 14, 15, 16, 17, 18 Active Status post patch closure of ASD(Confirmed) Active Vitamin D deficiency(Confirmed) Active 1neos 2documented at [facility];referred repair 3UNDEFINED, BIOPSY PENDING 4had [...]
--- OUTSIDE RECORDS SUMMARY | 2023-06-29 02:58 | XMS_ITS | Continuity of Care Document ---
Author Name Unknown Organization [facility] Address [address] [place] [address]- Care Team Providers Care Manager Massage Department Name Role Phone Geovanna Ada CEVALLOS Primary Care Physician Encounter [facility] [place] Date(s): 05/09/22 - 06/08/22 [facility] [address] [place] [address]- [place] Allergies, Adverse Reactions, Alerts No Known Allergies Immunizations Given and Recorded Vaccine Date Status Refusal Reason SARS-CoV-2 mRNA ([id number]) vax 1 04/18/22 Given SARS-CoV-2 (COVID-19) mRNA [...] Pertussis (oldterm) 04/30/08 Give n 1Result Comment: [facility]-[id number] 2Result Comment: [facility]-[id number] 3Result Comment: [06/12/2018] [facility]-[id number] 4Result Comment: [06/26/2013] ORDERRED BY GRAYSON ACEVEDO MD 5Admin Note: historical data 6Admin Note: Biomedical Ghazal of [facility] VIS [phone] given 7Result Comment: error 8Admin Note: h1n1 also 9Result Comment: LOT #[id number]; PREVIOUSLY COMPLETED INJECTION HAD NOT BEEN GIVEN. 10Admin Note: given in clinic Medications amiodarone 200 mg oral tablet 200 mg, 1, tablet, By Mouth, Daily, # 30 tablet, Refills 6, Tot. Refills 6, Maintenance, 03/28/22 12:22:00 EDT, Route to Pharmacy Electronically, [facility]/pharmacy #[id number], 177, cm, 02/18/22 10:35:00 EDT, Height, 115.9, kg, 02/18/22 10:29:00 EDT, Dry Weight Start Date: 03/28/22 Stop Date: 10/24/22 Status: Ordered Augmentin 875 mg-125 mg oral tablet 1 tablet, By Mouth, Every 12 hours, for 7 days, # 14 tablet, 0 Refills, Acute 06/14/22 11:23:00 EDT, 06/07/22 11:23:00 EDT, Tablet, [facility]/pharmacy #[id number], Partial fill upon patient request if the prescription is for a schedule II opioid drug., 177, cm, 1... Start Date: 06/07/22 Stop Date: 06/14/22 Status: Ordered benzonatate 200 mg oral capsule 1 capsule = 200 mg, By Mouth, 3 times a day, for 7 days, # 21 capsule, 0 Refills, Acute 06/14/22 11:23:00 EDT, 06/07/22 11:23:00 EDT, Capsule, [facility]/pharmacy #[id number], Partial fill upon patient request ifthe prescription is for a schedule II opioid drug.,... Start Date: 06/07/22 Stop Date: 06/14/22 Status: Ordered dicyclomine 20 mg oral tablet 1 tablet, By Mouth, 4 times a day, PRN NEEDED, # 360 tablet, 1 Refills, [facility], 177, cm, 08/05/21 11:04:00 EST, Height Start [...] # 180 tablet, 3 Refills, [facility], 177, cm, 02/18/22 10:35:00 EDT, Height, 115.9, kg, 02/18/22 10:29:00 EDT, Dry Weight Start Date: 03/01/22 Status: Ordered omeprazole 20 mg oral delayed release tablet 1 tablet = 20 mg, By Mouth, 2 times a day, # 60 tablet, 0 Refills, Maintenance, 05/13/22 17:23:00 EDT, EC Tablet, [facility]/pharmacy #[id number], Partial fill upon patient request if the prescription is for a schedule II opioid drug., 177, cm, 05/13/22 13:26:00 E... Start Date: 05/13/22 Stop Date: 06/12/22 Status: Ordered Toprol XL 50 mg oral tablet, extended release 50 mg, 1, tablet, By Mouth, Daily, # 30 tablet, Refills 11, Tot. Refills 11, Maintenance, 08/26/21 14:15:00 EST, Route to Pharmacy Electronically, [facility]/pharmacy #[id number], Partial fill upon patient request if the prescription is for a schedule II opioid drTessa Start Date: 08/26/21 Status: Ordered Vitamin D3 1000 intl units oral tablet 1 tablet, By Mouth, Daily, # 90 tablet, 0 Refills, [facility], 177, cm, 02/18/22 10:35:00 EDT,Height, 115.9, kg, [...] Active Insomnia Confirmed Active Current use of terminal manager anticoagulation/advi sed medic alert Confirmed Active Depression, [...] D deficiency Confirmed Active 1neos 2documented at [facility];referred repair 3Confirmed by second opinion consultation 4seering GI still 5Dr Chnia 6no need 7antibiotic prophylaxis;reminded;is aware 8low back;sees [...] Personnel Name: Ada Austin NP Address: Address: [address] [place] [id number]
--- OUTSIDE RECORDS SUMMARY | 2023-06-29 02:58 | XMS_ITS | Continuity of Care Document ---
Author Name Unknown Organization [facility] Address [address] [place] [address]- Care Team Providers Care Business Analyst Project Manager Name Role Phone Geovanna Ada CEVALLOS Primary Care Physician Encounter [facility] [place] Date(s): 06/22/22 - 07/22/22 [facility] [address] [place] [address]- [place] Allergies, Adverse Reactions, Alerts No Known Allergies Immunizations Given and Recorded Vaccine Date Status Refusal Reason SARS-CoV-2 mRNA ([id number]) vax 1 04/18/22 Given SARS-CoV-2 (COVID-19) mRNA [...] 04/30/08 Give n 1Result Comment: [facility]-[id number] 2Result Comment: [facility]-[id number] 3Result Comment: [06/12/2018] [facility]-[id number] 4Result Comment: [06/26/2013] ORDERRED BY GRAYSON ACEVEDO MD 5Admin Note: historical data 6Admin Note: Biomedical [facility]al [facility] VIS [phone] given 7Result Comment: error 8Admin Note: h1n1 also 9Result Comment: LOT #[id number]; PREVIOUSLY COMPLETED INJECTION HAD NOT BEEN GIVEN. 10Admin Note: given in clinic Medications amiodarone 200 mg oral tablet 200 mg, 1, tablet, By Mouth, Daily, # 30 tablet, Refills 6, Tot. Refills 6, Maintenance, 06/22/22 17:21:00 EDT, Route to Pharmacy Electronically, [facility]/pharmacy #[id number], 178, cm, 06/16/22 11:19:00 EDT, Height, 118, kg, 05/13/22 6:24:00 EDT, Dry Weight Start Date: 06/22/22 Stop Date: 01/18/23 Status: Ordered buPROPion 150 mg/24 hours (XL) oral tablet, extended release 1 tablet, By Mouth, Every 24 hours, # 90 tablet, 1 Refills, Maintenance, 07/07/22 19:24:00 EST, [facility], [facility], TAKE 1 TABLET BY MOUTH EVERY 24 HOURS, 178, cm, 06/16/22 11:19:00 EDT, Height, 118, kg, 05/13/22 6:24:00 EDT, Dry Weight Start Date: 07/07/22 Status: Ordered dicyclomine 20 mg oral tablet 1 tablet, By Mouth, 4 times a day, PRN NEEDED, # 360 tablet, 1 Refills, [facility], 177, cm, 08/05/21 11:04:00 EST, Height Start Date: 01/02/22 Status: Ordered Eliquis 5 mg oral tablet See Instructions, TAKE 1 TABLET BY MOUTH TWICE A DAY FOR 30 DAYS, # 180 tablet, 3 Refills, [facility] STORE 89632, 177, cm, 02/18/22 10:35:00 EDT, Height, 115.9, kg, 02/18/22 10:29:00 EDT, Dry Weight Start Date: 03/01/22 Status: Ordered omeprazole 20 mg oral delayed release tablet 1 tablet = 20 mg, By Mouth, 2 times a day, for 30 days, # 60 tablet, 0 Refills, Hard Stop 07/30/22 15:54:00 EST, 06/30/22 15:54:00 EDT, EC Tablet, [facility]/pharmacy #[id number], Partial fill upon patient request if the prescription is for a schedule II opioid Start Date: 06/30/22 Stop Date: 07/30/22 Status: Ordered omeprazole 20 mg oral delayed release tablet 1 tablet = 20 mg, By Mouth, 2 times a day, # 60 tablet, 0 Refills, Maintenance, 07/30/22 15:54:00 EST, EC Tablet, [facility]/pharmacy #[id number], Partial fill upon patient request if the prescription is for a schedule II opioid drug., 178, cm, 06/16/22 11:19:00 E... Start Date: 07/30/22 Stop Date: 08/29/22 Status: Ordered Toprol XL 50 mg oral tablet, extended release 50 mg, 1, tablet, By Mouth, Daily, # 30 tablet, Refills 11, Tot. Refills 11, Maintenance, 08/26/21 14:15:00 EST, Route to Pharmacy Electronically, [facility]/pharmacy #[id number], Partial fill upon patient request if the prescription is for a schedule II opioid Start Date: 08/26/21 Status: Ordered Vitamin D3 1000 intl units oral tablet 1 tablet, By Mouth, Daily, # 90 tablet, 0 Refills, [facility] STORE 11610, 177, cm, 02/18/22 10:35:00 EDT,Height, 115.9, kg, [...] Active Insomnia Confirmed Active Current use of chcf anticoagulation/advi sed medic alert Confirmed Active Depression, [...] D deficiency Confirmed Active 1neos 2documented at [facility];referred repair 3Confirmed by second opinion consultation 4seering [...] Team Personnel Name: Ada Austin NP Position: [facility] Associate Professional Member Role: PCP Address: Address: [address] [place] [address]- [place] Name: Jono Hanna MD Position: [facility] MD Member Role: Lifetime Consulting Physician Address: Address: [address] [place] [address] [place] [address]- Name: Juany Booth RN Position: S RN Member Role: Primary Care Nurse Name: Joey Tan RN Position: S RN Member Role: Primary Care Nurse Name: Tami Lucas RN Position: S RN Member Role: Primary Care Nurse Care Team Related Persons Name: TONY SAMSON Address: home [address] [place] [address] Name: MINDI BRENNAN Address: home [address] [place] [address]
--- OUTSIDE RECORDS SUMMARY | 2023-06-29 02:58 | XMS_ITS | Continuity of Care Document ---
Author Name Unknown Organization [facility] Address [address] [place] [address]- Care Team Providers Care Disability Representative Name Role Phone Geovanna Ada CEVALLOS Primary Care Physician En[place] [facility] [place] Date(s): 06/07/22 - 07/07/22 [facility] [address] [place] [address]- [place] Allergies, Adverse Reactions, Alerts No Known Allergies Immunizations Given and Recorded Vaccine Date Status Refusal Reason SARS-CoV-2 mRNA (mdxtvex-rarp-ofdvp) vax 1 04/18/22 Given SARS-CoV-2 (COVID-19) mRNA [...] Pertussis (oldterm) 04/30/08 Give n 1Result Comment: [facility]-[id number] 2Result Comment: [facility]-[id number] 3Result Comment: [06/12/2018] [facility]-[id number] 4Result Comment: [06/26/2013] ORDERRED BY GRAYSON ACEVEDO MD 5Admin Note: historical data 6Admin Note: [employer] [facility] VIS [phone] given 7Result Comment: error 8Admin Note: h1n1 also 9Result Comment: LOT #[id number]; PREVIOUSLY COMPLETED INJECTION HAD NOT BEEN GIVEN. 10Admin Note: given in clinic Medications amiodarone 200 mg oral tablet 200 mg, 1, tablet, By Mouth, Daily, # 30 tablet, Refills 6, Tot. Refills 6, Maintenance, 06/22/22 17:21:00 EDT, Route to Pharmacy Electronically, [facility]/pharmacy #[id number], 178, cm, 06/16/22 11:19:00 EDT, Height, 118, kg, 05/13/22 6:24:00 EDT, Dry Weight Start Date: 06/22/22 Stop Date: 01/18/23 Status: Ordered buPROPion 150 mg/24 hours (XL) oral tablet, extended release 1 tablet, By Mouth, Every 24 hours, # 90 tablet, 1 Refills, Maintenance, 07/07/22 19:24:00 EST, [facility], 90, TAKE 1 TABLET BY MOUTH EVERY 24 HOURS, 178, cm, 06/16/22 11:19:00 EDT, Height, 118, kg, 05/13/22 6:24:00 EDT, Dry Weight Start Date: 07/07/22 Status: Ordered dicyclomine 20 mg oral tablet 1 tablet, By Mouth, 4 times a day, PRN NEEDED, # 360 tablet, 1 Refills, [facility], 177, cm, 08/05/21 11:04:00 EST, Height Start Date: 01/02/22 Status: Ordered Eliquis 5 mg oral tablet See Instructions, TAKE 1 TABLET BY MOUTH TWICE A DAY FOR 30 DAYS, # 180 tablet, 3 Refills, [facility] 27[facility], 177, cm, 02/18/22 10:35:00 EDT, Height, 115.9, kg, 02/18/22 10:29:00 EDT, Dry Weight Start Date: 03/01/22 Status: Ordered omeprazole 20 mg oral delayed release tablet 1 tablet = 20 mg, By Mouth, 2 times a day, for 30 days, # 60 tablet, 0 Refills, Hard Stop 07/30/22 15:54:00 EST, 06/30/22 15:54:00 EDT, EC Tablet, [facility]/pharmacy #[id number], Partial fill upon patient request if the prescription is for a schedule II opioid Start Date: 06/30/22 Stop Date: 07/30/22 Status: Ordered omeprazole 20 mg oral delayed release tablet 1 tablet = 20 mg, By Mouth, 2 times a day, # 60 tablet, 0 Refills, Maintenance, 07/30/22 15:54:00 EST, EC Tablet, [facility]/pharmacy #[id number], Partial fill upon patient request if the prescription is for a schedule II opioid drug., 178, cm, 06/16/22 11:19:00 E... Start Date: 07/30/22 Stop Date: 08/29/22 Status: Ordered Toprol XL 50 mg oral tablet, extended release 50 mg, 1, tablet, By Mouth, Daily, # 30 tablet, Refills 11, Tot. Refills 11, Maintenance, 08/26/21 14:15:00 EST, Route to Pharmacy Electronically, [facility]/pharmacy #[id number], Partial fill upon patient request if the prescription is for a schedule II opioid Start Date: 08/26/21 Status: Ordered Vitamin D3 1000 intl units oral tablet 1 tablet, By Mouth, Daily, # 90 tablet, 0 Refills, [facility] 18[facility], 177, cm, 02/18/22 10:35:00 EDT,Height, 115.9, kg, [...] Active Insomnia Confirmed Active Current use of halfway anticoagulation/advi sed medic alert Confirmed Active Depression, [...] D deficiency Confirmed Active 1neos 2documented at [facility];referred repair 3Confirmed by second opinion [...] Team Personnel Name: Ada Austin NP Position: [facility] PCO Associate Professional Member Role: PCP Address: Address: [address] [place] [address]- [place] Name: Jono Hanna MD Position: [facility] MD Member Role: Lifetime Consulting Physician Address: Address: [address] [place] [address] [facility] [place] [address]- Name: Juany Booth RN Position: S RN Member Role: Primary Care Nurse Name: Joey Tan RN Position: S RN Member Role: Primary Care Nurse Name: Tami Lucas RN Position: S RN Member Role: Primary Care Nurse Care Team Related Persons Name: TONY SAMSON Address: home [address] [place] [address] Name: MINDI BRENNAN Address: home [address] [place] [address]
--- OUTSIDE RECORDS SUMMARY | 2023-06-29 02:58 | XMS_ITS | Continuity of Care Document ---
Author Name Unknown Organization [facility] ter Address [address] [place] [address]- Care Team Providers Care Rotor Balancer Name Role Phone Miroslava CURTIS, Foreign Woodson Primary Care Physician [phone] Encounter [facility] [place] Date(s): 02/18/22 - 02/18/[address] [address]- Discharge Disposition: A-D/C Home Attending Physician: Costa Yusuf MD Admitting Physician: Costa Yusuf MD Referring Physician: Beau Quijano MD Allergies, [...] Pertussis (oldterm) 04/30/08 Give n 1Result Comment: [facility]-[id number] 2Result Comment: [06/12/2018] [facility]-[id number] 3Result Comment: [06/26/2013] ORDERRED BY FOREIGN ACEVEDO MD 4Admin Note: historical data 5Admin Note: [employer] [facility] VIS [id number] given 6Result Comment: error 7Admin Note: h1n1 also 8Result Comment: LOT #[id number]; PREVIOUSLY COMPLETED INJECTION HAD NOT BEEN GIVEN. 9Admin Note: given in clinic Medications amiodarone 200 mg oral tablet See Instructions, 2 tablets by mouth twice a day for 1 week, then 1 tablet By Mouth Daily after, # 49 tablet, Refills 0, Tot. Refills 0, Maintenance, 02/11/22 8:35:00 EDT, Instructions Replace Required Details, [facility] Start Date: 02/11/22 Status: Ordered dicyclomine 20 mg oral tablet 1 tablet, By Mouth, 4 times a day, PRN NEEDED, # 360 tablet, 1 Refills, [facility], 177, cm, 08/05/21 11:04:00 EST, Height Start [...] 08/26/21 14:15:00 EST, Route to Pharmacy Electronically, [facility]/pharmacy #[id number], Partial fill upon patient request if the prescription is for a schedule II opioid . Start Date: 08/26/21 Status: Ordered Vitamin D3 1000 intl units oral tablet See Instructions, TAKE 1 TABLET BY MOUTH EVERY DAY, # 30 tablet, 2 Refills, [facility] 38169, 177, cm, 08/05/21 11:04:00 EST, Height Start [...] 11/08/20 Active Insomnia(Confirmed) Active Current use of penitentiary anticoagulation(Confirmed) Active Depression, major(Confirmed) Active Mitral valve [...] Vitamin D deficiency(Confirmed) Active 1neos 2documented at [facility];referred repair 3had EGD 4Confirmed by second opinion consultation 5seering GI still 6Dr [place] 7no need 8antibiotic prophylaxis;reminded;is aware 9low back;sees spine sports 10AHI 5.9 2009 study 11no significant issues per polysomnogram 12ablated 08-08 13May 07;echo EF 55% 14echo january 04 ef 55 % 15reduced EF 45% 16normal coronaries per angiography 17abnormal stress test; cardiac cath pending Vital Signs Most recent to oldest [Reference Range]: 1 2 3 Height 177 cm (02/18/22 10:35 AM) 177 cm (02/18/22 10:29 AM) Weight 115.9 kg (02/18/22 10:35 AM) 115.9 kg (02/18/22 10:29 AM) Oxygen Saturation [94-100 %] 99 % (02/18/22 12:30 PM) 98 % (02/18/22 12:21 PM) 99 % (02/18/22 11:48 AM) Pulse Rate [55-90 bpm] 84 bpm (02/18/22 10:26 AM) Blood Pressure [90-138/55-84 mm Hg] 101/64mm Hg (02/18/22 12:30 PM) 104/61mm Hg (02/18/22 12:21 PM) 116/83mm Hg (02/18/22 11:48 AM) Respiratory Rate [16-30 br/min] 18 br/min (02/18/22 12:30 PM) 21 br/min (02/18/22 12:21 PM) 9 br/min *L* (02/18/22 11:48 AM) Temperature [96.8-100.4 DegF] 97.2 DegF (02/18/22 10:26 AM) Liters per Minute 6 L/min (02/18/22 12:21 PM) Mode of Delivery (Oxygen) Room air (02/18/22 12:30 PM) Nasal cannula (02/18/22 12:21 PM) Room air (02/18/22 11:48 AM) Blood pressure sites Arm, left (02/18/22 12:30 PM) Arm, left (02/18/22 12:21 PM) Arm, left (02/18/22 11:48 AM) Temperature Route Oral (02/18/22 10:26 AM) Dry Weight 115.9 kg (02/18/22 10:29 AM) Social History Social History Type Response Smoking Status Never smoker; Tobacc o user in household: No entered on: 01/17/17 Sex
--- OUTSIDE RECORDS SUMMARY | 2023-06-29 02:58 | XMS_ITS | Continuity of Care Document ---
Author Name Unknown Organization [facility] ter Address [address] [place] [address]- Care Team Providers Care Brine Tank Separator Operator Name Role Phone Geovanna Ada CEVALLOS Primary Care Physician [place] [facility] [place] - 05/13/[address] [address] Discharge Disposition: A-D/C Home Attending Physician: Beau Quijano MD Admitting Physician: Beau Quijano MD Referring Physician: Beau Quijano MD Allergies, Adverse Reactions, Alerts No Known Allergies Immunizations Given and Recorded Vaccine Date Status Refusal Reason SARS-CoV-2 mRNA (ttjjlnc-vbot-wkqwp) vax 1 04/18/22 Given SARS-CoV-2 (COVID-19) mRNA [...] (oldterm) 6 07/08/10 Given tetanus/diphtheria/pertussis, acel(Tdap) 7 8/29/12 Given Influenza Virus Vaccine (oldterm) 8 05/28/09 Given Pneumococcal Vaccine (oldterm) 9 08/19/08 Given Influenza Inactive (IM) (oldterm) 10 08/02/08 Give n Tet/Diphth/Acel, Pertussis (oldterm) 04/30/08 Give n 1Result Comment: [facility]-[id number] 2Result Comment: [facility]-[id number] 3Result Comment: [06/12/2018] [facility]-[id number] 4Result Comment: [06/26/2013] ORDERRED BY GRAYSON ACEVEDO MD 5Admin Note: historical data 6Admin Note: [employer] [facility] VIS [id number] given 7Result Comment: error 8Admin Note: h1n1 [...] # 360 tablet, 1 [facility]ills, [facility], 177, cm, 08/05/21 11:04:00 EST, Height Start [...] # 180 tablet, 3 Refills, [facility], 177, cm, 02/18/22 10:35:00 EDT, Height, 115.9, [...] Date: 05/13/22 Stop Date: 06/12/22 Status: Ordered Percocet-5 Tablet 1 tablet, Tablet, By Mouth, Every 6 hours, PRN for Pain , Severe, Routine, 05/13/22 12:49:00 EDT Start Date: 05/13/22 Stop Date: 05/20/22 Status: Ordered Toprol XL 50 mg oral tablet, extended release 50 mg, 1, tablet, By Mouth, Daily, # 30 tablet, Refills 11, Tot. Refills 11, Maintenance, 08/26/21 14:15:00 EST, Route to Pharmacy Electronically, [facility]/pharmacy #[id number], Partial fill upon patient request if the prescription is for a schedule II opioid drTessa Start Date: 08/26/21 Status: Ordered Vitamin D3 1000 intl units oral tablet 1 tablet, By Mouth, Daily, # 90 tablet, 0 Refills, [facility] 41247, 177, cm, 02/18/22 10:35:00 EDT,Height, 115.9, kg, 02/18/22 10:29:00 EDT, Dry Weight Start Date: 04/01/22 Status: Ordered Wellbutrin = 150 mg, By Mouth, Daily, 0 Refills, Maintenance, 05/13/22 6:24:00 EDT, Partial fill upon patient request if the prescription is for a schedule II opioid drug. Start Date: 05/13/22 Status: Ordered Problem List Condition Effective Dates Status Health Status Inform ant Adult BMI 30.0-30.9 kg/sq m(Confirmed) Active Ascending aortic aneurysm st able 4cm 2020/stable 2021(Confirmed) 07/31/19 Active Anxiety(Confirmed) 03/13/08 Active Traumatic arthritis of right foot(Confirmed) 1 Active Atrial septal defect, secundum(Confirmed) 2 08/24/09 Active Cholesteatoma(Confirmed) Active COVID-19(Confirmed) 01/02/22 Active Hearing loss in right ear/pr ior sx ear drum(Confirmed) Active IBS [Irritable bowel syndrome](Confirmed) 3, 4, 5 Active Impaired fasting glucose(Confirmed) 11/08/20 Active Insomnia(Confirmed) Active Current use of watermaster anticoagulation/advised medic alert(Confirmed) Active Depression, major(Confirmed) Active Mitral valve insufficiency(C onfirmed) 6, 7 Active Myofascial pain(Confirmed) 8 Active Lung nodule PET 2019 /no chn g ct angio 2008/2021(Confirmed) 10/24/19 Active Obstructive sleep apnea synd shaji ahi10.08/2020(Confirmed) 9, 10 Active Paroxysmal A-fib catheter ab lation 2011(Confirmed) 11, 12, 13, 14, 15, 16 Active Status post patch closure of ASD(Confirmed) Active Severe obesity(Confirmed) Active Vitamin D deficiency(Confirmed) Active 1neos 2documented at [facility];referred repair 3Confirmed by second opinion consultation [...] Range]: 1 2 3 Height 177 cm (05/13/22 1:26 PM) 177 cm (05/13/22 7:00 AM) 177 cm (05/13/22 6:24 AM) Weight 118 kg (05/13/22 7:00 AM) 118 kg (05/13/22 6:24 AM) Oxygen Saturation [94-100 %] 98 % (05/13/22 1:26 PM) 97 % (05/13/22 6:24 AM) Pulse Rate [55-90 bpm] 122 bpm *H* (05/13/22 6:24 AM) Blood Pressure [90-138/55-84 mm Hg] 97/59mm Hg (05/13/22 1:26 PM) 128/85mm Hg (05/13/22 6:24 AM) Respiratory Rate [16-30 br/min] 15 br/min *L* (05/13/22 1:04 PM) 20 br/min (05/13/22 6:24 AM) Temperature [96.8-100.4 DegF] 97.8 DegF (05/13/22 1:26 PM) 97.7 DegF (05/13/22 6:24 AM) Mode of Delivery (Oxygen) Room air (05/13/22 1:26 PM) Room air (05/13/22 6:24 AM) Blood pressure sites Arm, right (05/13/22 1:26 PM) Arm, left (05/13/22 6:24 AM) Temperature Route Oral (05/13/22 1:26 PM) Oral (05/13/22 6:24 AM) Dry Weight 118 kg (05/13/22 6:24 AM) Social History Social History Type Response Smoking Status Never smoker; Tobacc o user in household: No entered on: 01/17/17 Sex Care Team Personnel Name: Ada Austin NP Address: [address] [place] [address] Adult [facility] [address]-
--- OUTSIDE RECORDS SUMMARY | 2023-06-29 02:58 | XMS_ITS | Continuity of Care Document ---
Author Name Unknown Organization [facility] Address [address] [place] [address]- Care Team Providers Care Evp Strategy Name Role Phone Geovanna Ada CEVALLOS Primary Care Physician [place] [facility] [place](s): 06/03/22 - 07/03/22 [facility] [address] [place] [address]- Attending Physician: Corie Jeronimo Admitting Physician: AdmCorie martinez Referring Physician: Admtr ArAsael Allergies, Adverse Reactions, Alerts No Known Allergies Immunizations Given and Recorded Vaccine Date Status Refusal Reason SARS-CoV-2 mRNA (mvtcyla-yhom-crqll) vax 1 04/18/22 Given SARS-CoV-2 (COVID-19) mRNA [...] Pertussis (oldterm) 04/30/08 Give n 1Result Comment: [id number] 2Result Comment: [facility]-[id number] 3Result Comment: [06/12/2018] [id number] 4Result Comment: [06/26/2013] ORDERRED BY GRAYSON ACEVEDO MD 5Admin Note: historical data 6Admin Note: [employer] [facility] VIS [phone] given 7Result Comment: error 8Admin Note: h1n1 also 9Result Comment: LOT #[id number]; PREVIOUSLY COMPLETED INJECTION HAD NOT BEEN GIVEN. 10Admin Note: given in clinic Medications amiodarone 200 mg oral tablet 200 mg, 1, tablet, By Mouth, Daily, # 30 tablet, Refills 6, Tot. Refills 6, Maintenance, 06/22/22 17:21:00 EDT, Route to Pharmacy Electronically, [facility]/pharmacy #[id number], 178, cm, 06/16/22 11:19:00 EDT, Height, 118, kg, 05/13/22 6:24:00 EDT, Dry Weight Start Date: 06/22/22 Stop Date: 01/18/23 Status: Ordered dicyclomine 20 mg oral tablet 1 tablet, By Mouth, 4 times a day, PRN NEEDED, # 360 tablet, 1 Refills, [facility], 177, cm, 08/05/21 11:04:00 EST, Height Start Date: 01/02/22 Status: Ordered Eliquis 5 mg oral tablet See Instructions, TAKE 1 TABLET BY MOUTH TWICE A DAY FOR 30 DAYS, # 180 tablet, 3 Refills, [facility], 177, cm, 02/18/22 10:35:00 EDT, Height, 115.9, kg, 02/18/22 10:29:00 EDT, Dry Weight Start Date: 03/01/22 Status: Ordered omeprazole 20 mg oral delayed release tablet 1 tablet = 20 mg, By Mouth, 2 times a day, for 30 days, # 60 tablet, 0 Refills, Hard Stop 07/30/22 15:54:00 EST, 06/30/22 15:54:00 EDT, EC Tablet, [facility]/pharmacy #[id number], Partial fill upon patient request if the prescription is for a schedule II opioid Start Date: 06/30/22 Stop Date: 07/30/22 Status: Ordered omeprazole 20 mg oral delayed release tablet 1 tablet = 20 mg, By Mouth, 2 times a day, # 60 tablet, 0 Refills, Maintenance, 07/30/22 15:54:00 EST, EC Tablet, [facility]/pharmacy #[id number], Partial fill upon patient request if the prescription is for a schedule II opioid drug., 178, cm, 06/16/22 11:19:00 E... Start Date: 07/30/22 Stop Date: 08/29/22 Status: Ordered Toprol XL 50 mg oral tablet, extended release 50 mg, 1, tablet, By Mouth, Daily, # 30 tablet, Refills 11, Tot. Refills 11, Maintenance, 08/26/21 14:15:00 EST, Route to Pharmacy Electronically, [facility]/pharmacy #[id number], Partial fill upon patient request if the prescription is for a schedule II opioid Start Date: 08/26/21 Status: Ordered Vitamin D3 1000 intl units oral tablet 1 tablet, By Mouth, Daily, # 90 tablet, 0 Refills, [facility] 51087, 177, cm, 02/18/22 10:35:00 EDT,Height, 115.9, kg, [...] Active Insomnia Confirmed Active Current use of alf anticoagulation/advi sed medic alert Confirmed Active Depression, [...] D deficiency Confirmed Active 1neos 2documented at [facility];referred repair 3Confirmed by second opinion consultation [...] Personnel Name: Ada Austin NP Address: Address: [address] [place] [address]
--- OUTSIDE RECORDS SUMMARY | 2023-06-29 02:58 | XMS_ITS | Continuity of Care Document ---
Author Name Unknown Organization [facility] Address [address] [place] [address]- Care Team Providers Care Building Official Name Role Phone Geovanna Ada CEVALLOS Primary Care Physician [phone] [place] [facility] [place](s): 05/24/22 - 06/23/22 [facility] [address] [place] [address]- [place] Allergies, Adverse Reactions, Alerts No Known Allergies Immunizations Given and Recorded Vaccine Date Status Refusal Reason SARS-CoV-2 mRNA (garduea-ngmk-vykfk) vax 1 04/18/22 Given SARS-CoV-2 (COVID-19) mRNA [...] Pertussis (oldterm) 04/30/08 Give n 1Result Comment: [facility]-[id number] 2Result Comment: [facility]-[id number] 3Result Comment: [06/12/2018] [facility]-[id number] 4Result Comment: [06/26/2013] ORDERRED BY GRAYSON ACEVEDO MD 5Admin Note: historical data 6Admin Note: [employer] [facility] VIS [id number] given 7Result Comment: error 8Admin Note: h1n1 also 9Result Comment: LOT #[id number]; PREVIOUSLY COMPLETED INJECTION HAD NOT BEEN GIVEN. 10Admin Note: given in clinic Medications amiodarone 200 mg oral tablet 200 mg, 1, tablet, By Mouth, Daily, # 30 tablet, Refills 6, Tot. Refills 6, Maintenance, 06/22/22 17:21:00 EDT, Route to Pharmacy Electronically, [facility]/pharmacy #[id number], 178, cm, 06/16/22 11:19:00 EDT, Height, 118, kg, 05/13/22 6:24:00 EDT, Dry Weight Start Date: 06/22/22 Stop Date: 01/18/23 Status: Ordered dicyclomine 20 mg oral tablet 1 tablet, By Mouth, 4 times a day, PRN NEEDED, # 360 tablet, 1 Refills, [facility], 177, cm, 08/05/21 11:04:00 EST, Height Start Date: 01/02/22 Status: Ordered Eliquis 5 mg oral tablet See Instructions, TAKE 1 TABLET BY MOUTH TWICE A DAY FOR 30 DAYS, # 180 tablet, 3 Refills, [facility] 05869, 177, cm, 02/18/22 10:35:00 EDT, Height, 115.9, kg, 02/18/22 10:29:00 EDT, Dry Weight Start Date: 03/01/22 Status: Ordered omeprazole 20 mg oral delayed release tablet 1 tablet = 20 mg, By Mouth, 2 times a day, # 60 tablet, 0 Refills, Maintenance, 05/13/22 17:23:00 EDT, EC Tablet, [facility]/pharmacy #[id number], Partial fill upon patient request if the prescription is for a schedule II opioid drug., 177, cm, 05/13/22 13:26:00 E... Start Date: 05/13/22 Stop Date: 06/12/22 Status: Ordered Toprol XL 50 mg oral tablet, extended release 50 mg, 1, tablet, By Mouth, Daily, # 30 tablet, Refills 11, Tot. Refills 11, Maintenance, 08/26/21 14:15:00 EST, Route to Pharmacy Electronically, [facility]/pharmacy #[id number], Partial fill upon patient request if the prescription is for a schedule II opioid . 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
--- OUTSIDE RECORDS SUMMARY | 2023-06-29 02:58 | XMS_ITS | Continuity of Care Document ---
Author Name Unknown Organization [facility] Josh lt Address [address] [place] [address]- Care Team Providers Care Drug Discovery Informatics Specialist Name Role Phone Foreign [place] MD Primary Care Physician [facility] Date[facility]s): 11/10/20 - 11/17/20 [facility] Adult [address] [place] [address]- Encounter Diagnosis Ascending aortic aneurysm 4.0 cm MRI (Discharge Diagnosis) - 11/09/20 Cardiomyopathy ef41% MRI Jul 2019 ? afib/nonoischemic per cath(Discharge Diagnosis) - 11/09/20 Depression, major(Discharge Diagnosis) - 11/09/20 Current use of assisted anticoagulation(Discharge Diagnosis) - 11/09/20 Paroxysmal A-fib(Discharge Diagnosis) - 11/09/20 Impaired fasting glucose(Discharge Diagnosis) - 11/09/20 Obstructive sleep apnea syndrome ahi 5.9(Discharge Diagnosis) - 11/09/20 Chronic GERD EGD 2004(Discharge Diagnosis) - 11/09/[address](Discharge Diagnosis) - 11/09/20 BMI 38.0-38.9,adult(Discharge Diagnosis) - 11/10/20 Lung nodule PET 2019 /no vchng ct angio 2008(Discharge Diagnosis) - 11/10/20 Physical exam(Discharge Diagnosis) - 11/10/20 Attending Physician: Foreign [place] MD Allergies, Adverse [...] (oldterm) 04/30/08 Give n 1Result Comment: [06/12/2018] [facility]-[id number] 2Result Comment: [06/26/2013] ORDERRED BY FOREIGN [place] MD 3Admin Note: historical data 4Admin Note: [employer] [facility] VIS [id number] given 5Result Comment: error 6Admin Note: h1n1 also 7Result Comment: LOT #[id number]; PREVIOUSLY COMPLETED INJECTION HAD NOT BEEN GIVEN. 8Admin Note: given in clinic Medications buPROPion 75 mg oral tablet 1 tablet = 75 mg, By Mouth, 3 times a day, # 90 tablet, 0 Refills, Maintenance, 11/10/20 15:22:00 EDT, Tablet, [facility]/pharmacy #[id number], Partial fill upon patient request if the prescription is for a schedule II opioid drug., 177, cm, 11/10/20 14:43:00 EDT,... Start Date: 11/10/20 Status: Ordered dicyclomine 20 mg oral tablet 1 tablet, By Mouth, 4 times a day, PRN NEEDED, # 360 tablet, 1 Refills, Maintenance, 04/02/20 6:38:00 EDT, [facility], 177, cm, 09/27/19 8:18:00 EST, Height, 119.9, kg, 05/13/19 16:58:00 EDT,Dry Weight Start Date: 04/02/20 Status: Ordered duloxetine 30 mg oral enteric coated capsule 1 capsule = 30 mg, By Mouth, Daily, # 30 capsule, 1 Refills, Maintenance, 11/10/20 15:19:00 EDT, [facility]/pharmacy #[id number], Partial fill upon patient request if the prescription is for a schedule II opioid drug., 177, cm, 11/10/20 14:43:00 EDT, Height, 119.9... Start Date: 11/10/20 Status: Ordered Eliquis 5 mg oral tablet 1 tablet = 5 mg, By Mouth, 2 times a day, # 60 tablet, 8 Refills, Maintenance, 12/17/19 10:31:00 EDT, Tablet, [facility]/pharmacy #[id number], 177, cm, 09/27/19 8:18:00 EST, Height, 119.9, kg, 05/13/19 16:58:00 EDT, Dry Weight Start Date: 12/17/19 Stop Date: 09/12/20 Status: Ordered omeprazole 20 mg oral enteric coated capsule 1 capsule, By Mouth, 2 times a day, # 60 capsule, 11 Refills, Maintenance, 05/05/20 9:56:00 EDT, [facility]/pharmacy #[id number], 177, cm, 09/27/19 8:18:00 EST, Height, 119.9, kg, 05/13/19 16:58:00 EDT, Dry Weight Start Date: 05/05/20 Stop Date: 04/30/21 Status: Ordered Toprol XL 25 mg oral tablet, extended release 25 mg, 1, tablet, By Mouth, Daily, # 30 tablet, Refills 11, Tot. Refills 11, Maintenance, 01/14/20 14:44:00 EDT, Route to Pharmacy Electronically, [facility]/pharmacy #[id number], 177, cm, 09/27/19 8:18:00 EST, Height, 119.9, kg, 05/13/19 16:58:00 EDT, Dry Weight Start Date: 01/14/20 Stop Date: 01/08/21 Status: Ordered Vitamin D3 1000 intl units oral tablet 1 tablet = 1,000 International_Units, By Mouth, Daily, # 30 tablet, 0 Refills, Maintenance, 11/10/20 15:04:00 EDT, Tablet, [facility]/pharmacy #[id number], Partial fill upon patient request if [...] D deficiency(Confirmed) Active 1neos 2documented at [facility];referred repair 3UNDEFINED, BIOPSY PENDING 4had EGD 5Confirmed by second opinion consultation 6seering GI still 7Dr China 8no need 9antibiotic prophylaxis;reminded;is aware 10low back;sees spine sports 11AHI 5.9 2008 study 12no significant issues per polysomnogram 13ablated 08-08 14May 07;echo EF 55% 15echo january 04 ef 55 % 16reduced EF 45% 17normal coronaries per angiography 18abnormal stress test; cardiac cath pending Diagnosis Diagnosis Type Effective Dates Health Status Clinical Service Informant Ascending aortic aneurysm 4.0 cm MRI Discharge Diagnosis 11/09/20 Depression, major Discharge Diagnosis 11/09/20 Impaired fasting glucose Discharge Diagnosis 11/09/20 Paroxysmal A-fib Discharge Diagnosis 11/09/20 Current use of terminal computer operator anticoagulation Discharge Diagnosis 11/09/[address] Discharge Diagnosis 11/09/20 Obstructive sleep apnea syndrome ahi 5.9 Discharge Diagnosis 11/09/20 Cardiomyopathy ef41% MRI Jul 2019 ? afib/nonoischemic per cath Discharge Diagnosis 11/09/20 Chronic GERD EGD 2004 Discharge Diagnosis 11/09/20 BMI 38.0-38.9,adult Discharge Diagnosis 11/10/20 Lung nodule PET 2019 /no vchng ct angio 2008 Discharge Diagnosis 11/10/20 Physical exam Discharge Diagnosis 11/10/20 Procedures Procedure Date Related Diagnosis Body Site Status PET/CT system 1 10/24/19 Completed 1IMPRESSION: 1. No evidence of an inflammatory process such as sarcoidosis involving the myocardium. 2. Mild hypermetabolism along the thoracic aorta is nonspecific. Differential diagnosis includes aortitis and atherosclerotic disease although no significant calcification is seen on CT images. 3. Non-FDG avid 3 mm left lower lobe nodule is too small to be resolved by PET CT. If low risk for malignancy, no follow-up is needed. If patient has risk factors, consider optional CT follow-up at 12 months according to 2017 Fleischner Society guidelines. 4. Splenomegaly. Vital Signs Most recent to oldest [Reference Range]: 1 Height 177 cm (11/10/20 2:43 PM) Weight 120.2 kg (11/10/20 2:43 PM) Oxygen Saturation [94-100 %] 97 % (11/10/20 2:43 PM) Pulse Rate [55-90 bpm] 76 bpm (11/10/20 2:43 PM) Body Mass Index [18.5-24.99] 38.37 *>HHI* (11/10/20 2:43 PM) Blood Pressure [90-138/55-84 mm Hg] 128/ 82mm Hg (11/10/20 2:43 PM) Respiratory Rate [16-30 br/min] 16 br/mi n (11/10/20 2:43 PM) Blood pressure sites Arm, left (11/10/20 2:43 PM) Social History Social History Type Response Smoking Status Never smoker; Tobacc o user in household: No entered on: 01/17/17 Sex
--- OUTSIDE RECORDS SUMMARY | 2023-06-29 02:58 | XMS_ITS | Continuity of Care Document ---
Author Name Unknown Organization [facility] Josh lt Address [address] [place] [address]- Care Team Providers Care Aerospace Technician Name Role Phone Geovanna CASINO OPERATIONS SUPERVISORAda Primary Care Physician [phone] [facility]counter [facility] Date(s): 10/11/22 - 11/10/22 [facility] Adult [address] [place] [address]- Allergies, Adverse Reactions, Alerts No Known Allergies Immunizations Given and Recorded Vaccine Date Status Refusal Reason SARS-CoV-2 mRNA (iyqtxte-ovrx-htxme) vax 1 04/18/22 Given SARS-CoV-2 (COVID-19) mRNA [...] (oldterm) 04/30/08 Give n 1Result Comment: [facility]-[id number] 2Result Comment: [facility]-[id number] 3Result Comment: [06/12/2018] [facility]-[id number] 4Result Comment: [06/26/2013] ORDERRED BY GRAYSON ACEVEDO MD 5Admin Note: historical data 6Admin Note: [employer] [facility] [place] VIS [id number] given 7Result Comment: error 8Admin Note: h1n1 [...] 1 Refills, Maintenance, 07/07/22 19:24:00 EST, [facility], 90, TAKE 1 TABLET BY MOUTH EVERY 24 HOURS, 178, cm, 06/16/22 11:19:00 EDT, Height, 118, kg, 05/13/22 6:24:00 EDT, Dry Weight Start Date: 07/07/22 Status: Ordered dicyclomine 20 mg oral tablet 1 tablet, By Mouth, 4 times a day, PRN NEEDED, # 360 tablet, 1 Refills, [facility], 177, cm, 08/05/21 11:04:00 EST, Height Start Date: 01/02/22 Status: Ordered Eliquis 5 mg oral tablet See Instructions, TAKE 1 TABLET BY MOUTH TWICE A DAY FOR 30 DAYS, # 180 tablet, 3 Refills, [facility], 177, cm, 02/18/22 10:35:00 EDT, Height, 115.9, kg, 02/18/22 10:29:00 EDT, Dry Weight Start Date: 03/01/22 Status: Ordered omeprazole 20 mg oral enteric coated capsule See Instructions, TAKE 1 CAPSULE BY MOUTH TWICE A DAY, # 60 capsule, 0 Refills, Maintenance, 10/23/22 14:13:00 EST, [facility], 178, cm, 06/16/22 11:19:00 EDT, Height, 118, kg, 05/13/22 6:24:00 EDT, Dry Weight Start Date: 10/23/22 Status: Ordered Toprol XL 50 mg oral tablet, extended release 50 mg, 1, tablet, By Mouth, Daily, # 30 tablet, Refills 11, Tot. Refills 11, Maintenance, 09/23/22 8:02:00 EST, Route to Pharmacy Electronically, [facility]/pharmacy #[id number], 178, cm, 06/16/22 11:19:00 EDT, Height, 118, kg, 05/13/22 6:24:00 EDT, Dry Weight Start Date: 09/23/22 Status: Ordered Vitamin D3 1000 intl units oral tablet 1 tablet, By Mouth, Daily, # 90 tablet, 0 Refills, [facility], 177, cm, 02/18/22 10:35:00 EDT,Height, 115.9, kg, [...] Active Insomnia Confirmed Active Current use of unit aide anticoagulation/advi sed medic alert Confirmed Active Depression, major Confirmed Active Mitral valve insufficiency 6, 7 Confirmed Active Myofascial pain 8 Confirmed Active Lung nodule PET 2019 /no chng ct angio 2009/stable 2021 Confirmed 10/24/19 Active Obstructive sleep apnea syndrome ahi10.08/2020 9, 10 Confirmed Active Paroxysmal A-fib catheter ablation 2012 06, 12, 13, 14, 15, 16 Confirmed Active Status post patch closure of ASD Confirmed Active Severe obesity Confirmed Active Vitamin D deficiency Confirmed Active 1neos 2documented at [facility];referred repair 3Confirmed by second opinion [...] Care team information Care Team Personnel Name: Geovanna CEVALLOS, Ada Desai Position: [facility] PCO Associate Professional Member Role: PCP Address: Address: [address] [place] [address]- [place] Name: oJno Hanna MD Position: [facility] Cardiology MD Member Role: Lifetime Consulting Physician Address: Address: [address] [place] [address] [facility] [address]- Name: Juany Booth RN Position: [facility] RN Member Role: Primary Care Nurse Name: Joey Tan RN Position: S RN Member Role: Primary Care Nurse Name: Tami Lucas RN Position: S RN Member Role: Primary Care Nurse Care Team Related Persons Name: TONY SAMSON Address: home [address] [place] [address] Name: MINDI BRENNAN Address: home [address] [place] [address] [place]
--- OUTSIDE RECORDS SUMMARY | 2023-06-29 02:58 | XMS_ITS | Continuity of Care Document ---
Author Name Unknown Organization [facility] Address [address] [place] [address]- Care Team Providers Care Portfolio Architect Name Role Phone Foreign [place] MD Primary Care Physician Encounter [facility] Date(s): 03/06/20 - 07/04/20 [facility] [address] [place] [id number] Attending Physician: Beau Quijano MD Admitting Physician: Beau Quijano MD Referring Physician: Foreign [place] MD Allergies, Adverse Reactions, [...] (oldterm) 04/30/08 Give n 1Result Comment: [06/12/2018] [facility]-[id number] 2Result Comment: [06/26/2013] ORDERRED BY FOREIGN [place] MD 3Admin Note: historical data 4Admin Note: [employer] [facility] VIS [id number] given 5Result Comment: error 6Admin Note: h1n1 [...] 11 Refills, Maintenance, 10/07/19 14:15:00 EST, ERTablet, [facility]/pharmacy #[id number], 177, cm, 09/27/19 8:18:00 EST, Height, 119.9, kg, 05/13/19 16:58:00 EDT, Dry Weight Start Date: 10/07/19 Status: Ordered dicyclomine 20 mg oral tablet 1 tablet, By Mouth, 4 times a day, PRN NEEDED, # 360 tablet, 1 Refills, Maintenance, 04/02/20 6:38:00 EDT, [facility], 177, cm, 09/27/19 8:18:00 EST, Height, 119.9, kg, 05/13/19 16:58:00 EDT,Dry Weight Start Date: 04/02/20 Status: Ordered Eliquis 5 mg oral tablet 1 tablet = 5 mg, By Mouth, 2 times a day, # 60 tablet, 8 Refills, Maintenance, 12/17/19 10:31:00 EDT, Tablet, [facility]/pharmacy #[id number], 177, cm, 09/27/19 8:18:00 [...] 11 Refills, Maintenance, 05/05/20 9:56:00 EDT, [facility]/pharmacy #[id number], 177, cm, 09/27/19 8:18:00 EST, Height, 119.9, kg, 05/13/19 16:58:00 EDT, Dry Weight Start Date: 05/05/20 Stop Date: 04/30/21 Status: Ordered Toprol XL 25 mg oral tablet, extended release 25 mg, 1, tablet, By Mouth, Daily, # 30 tablet, Refills 11, Tot. Refills 11, Maintenance, 01/14/20 14:44:00 EDT, Route to Pharmacy Electronically, [facility]/pharmacy #[id number], 177, cm, 09/27/19 8:18:00 EST, Height, 119.9, kg, 05/13/19 16:58:00 EDT, Dry Weight Start Date: 01/14/20 Stop Date: 01/08/21 Status: Ordered Vitamin D3 2000 intl units oral tablet 1 tablet = 2,000 International_Units, By Mouth, Daily, # 90 tablet, 0 Refills, Maintenance, 05/05/20 9:42:00 EDT, [facility]/pharmacy #[id number], 177, cm, 09/27/19 8:18:00 [...] Vitamin D deficiency(Confirmed) Active 1neos 2documented at [facility];referred repair 3UNDEFINED, BIOPSY PENDING 4ablated 08-08 [...]
--- OUTSIDE RECORDS SUMMARY | 2023-06-29 02:58 | XMS_ITS | Continuity of Care Document ---
Author Name Unknown Organization [facility] Address [address] [place] [address]- Care Team Providers Care Sequins Spooler Name Role Phone Miroslava CURTIS, Foreign Woodson Primary Care Physician [phone] [facility] Date(s): 02/01/21 - 03/03/21 [facility] [address] [place] [id number] Allergies, Adverse Reactions, Alerts Substance Reaction Severity [...] (oldterm) 04/30/08 Give n 1Result Comment: [06/12/2018] [facility]-[id number] 2Result Comment: [06/26/2013] ORDERRED BY FOREIGN ACEVEDO MD 3Admin Note: historical data 4Admin Note: [employer] [facility] [place] VIS [id number] given 5Result Comment: error 6Admin Note: h1n1 also 7Result Comment: LOT #[id number]; PREVIOUSLY COMPLETED INJECTION HAD NOT BEEN GIVEN. 8Admin Note: given in clinic Medications dicyclomine 20 mg oral tablet 1 tablet, By Mouth, 4 times a day, PRN NEEDED, # 360 tablet, 1 Refills, Maintenance, 02/02/21 7:03:00 EDT, [facility], 177, cm, 11/10/20 14:43:00 EDT, Height, 119.9, kg, 05/13/19 16:58:00 EDT, Dry Weight Start Date: 02/02/21 Status: Ordered duloxetine 30 mg oral enteric coated capsule 1 capsule = 30 mg, By Mouth, 2 times a day, # 60 each, 6 Refills, Maintenance, 11/18/20 16:47:00 EDT, [facility]/pharmacy #[id number], Partial fill upon patient [...] 02/01/21 8:19:00 EDT, Route to Pharmacy Electronically, [facility]/pharmacy #[id number], 177, cm, 11/10/20 14:43:00 EDT, Height, 119.9, kg, 05/13/19 16:58:00 EDT, Dry Weight Start Date: 02/01/21 Stop Date: 01/27/22 Status: Ordered Vitamin D3 1000 intl units oral tablet 1 tablet, By Mouth, Daily, # 30 tablet, 5 Refills, Maintenance, 12/03/20 17:56:00 EDT, [facility], 177, cm, 11/10/20 14:43:00 EDT, Height, 119.9, [...] 11/08/20 Active Insomnia(Confirmed) Active Current use of extermination inspector anticoagulation(Confirmed) Active Depression, major(Confirmed) Active Mitral valve insufficiency(C onfirmed) 8, 9 Active Myofascial pain(Confirmed) 10 Active Lung nodule PET 2019 /no vch ng ct angio 2008(Confirmed) 10/24/19 Active Obstructive sleep apnea synd shaji ahi 5.9(Confirmed) 11, 12 Active Paroxysmal A-fib(Confirmed) 13, 14, 15, 16, 17, 18 Active Status post patch closure of ASD(Confirmed) Active Vitamin D deficiency(Confirmed) Active 1neos 2documented at [facility];referred repair 3UNDEFINED, BIOPSY PENDING 4had EGD [...]
--- OUTSIDE RECORDS SUMMARY | 2023-06-29 02:58 | XMS_ITS | Continuity of Care Document ---
Author Name Unknown Organization [facility] Josh lt Address [address] [place] [address]- Care Team Providers Care Tow Car Driver Name Role Phone Miroslava CURTIS, Foreign Woodson Primary Care Physician [facility] Date(s): 04/23/20 - 05/23/20 [facility] Adult [address] [place] [address]- [facility] Attending Physician: Admtr, Ar8 Allergies, Adverse Reactions, [...] 04/30/08 Give n 1Result Comment: [06/12/2018] [facility]-[id number] 2Result Comment: [06/26/2013] ORDERRED BY FOREIGN ACEVEDO MD 3Admin Note: historical data 4Admin Note: [employer] [facility] [place] VIS [id number] given 5Result Comment: error 6Admin Note: h1n1 also 7Result Comment: LOT #[id number]; PREVIOUSLY COMPLETED INJECTION HAD NOT BEEN GIVEN. 8Admin Note: given in clinic Medications Aspirin Enteric Coated 81 mg oral delayed release tablet See Instructions, # 90 tablet, Refills 1 Tot. Refills 1, 1 TABLET BY MOUTH DAILY, [facility]/pharmacy #[id number] Start Date: 03/17/19 Status: Ordered buPROPion 300 mg/24 hours (XL) oral tablet, extended release 1 tablet = 300 mg, By Mouth, Daily, # 30 tablet, 11 Refills, Maintenance, 10/07/19 14:15:00 EST, ERTablet, [facility]/pharmacy #[id number], 177, cm, 09/27/19 8:18:00 EST, Height, 119.9, kg, 05/13/19 16:58:00 EDT, Dry Weight Start Date: 10/07/19 Status: Ordered dicyclomine 20 mg oral tablet 1 tablet, By Mouth, 4 times a day, PRN NEEDED, # 360 tablet, 1 Refills, Maintenance, 04/02/20 6:38:00 EDT, [facility], 177, cm, 09/27/19 8:18:00 EST, Height, 119.9, kg, 05/13/19 16:58:00 EDT,Dry Weight Start Date: 04/02/20 Status: Ordered Eliquis 5 mg oral tablet 1 tablet = 5 mg, By Mouth, 2 times a day, # 60 tablet, 8 Refills, Maintenance, 12/17/19 10:31:00 EDT, Tablet, [facility]/pharmacy #[id number], 177, cm, 09/27/19 8:18:00 [...] 11 Refills, Maintenance, 05/05/20 9:56:00 EDT, [facility]/pharmacy #[id number], 177, cm, 09/27/19 8:18:00 EST, Height, 119.9, kg, 05/13/19 16:58:00 EDT, Dry Weight Start Date: 05/05/20 Stop Date: 04/30/21 Status: Ordered Toprol XL 25 mg oral tablet, extended release 25 mg, 1, tablet, By Mouth, Daily, # 30 tablet, Refills 11, Tot. Refills 11, Maintenance, 01/14/20 14:44:00 EDT, Route to Pharmacy Electronically, [facility]/pharmacy #[id number], 177, cm, 09/27/19 8:18:00 EST, Height, 119.9, kg, 05/13/19 16:58:00 EDT, Dry Weight Start Date: 01/14/20 Stop Date: 01/08/21 Status: Ordered Vitamin D3 2000 intl units oral tablet 1 tablet = 2,000 International_Units, By Mouth, Daily, # 90 tablet, 0 Refills, Maintenance, 05/05/20 9:42:00 EDT, [facility]/pharmacy #[id number], 177, cm, 09/27/19 8:18:00 [...] Vitamin D deficiency(Confirmed) Active 1neos 2documented at [facility];referred repair 3UNDEFINED, BIOPSY PENDING 4ablated 08-08 5May 07;echo EF 55% 6echo january 04 ef 55 % 7reduced EF 45% 8normal coronaries per angiography 9abnormal stress test; cardiac cath pending 10Confirmed by second opinion consultation 11seering GI still 12Dr China 13no need 14antibiotic prophylaxis;reminded;is aware 15low back;sees spine sports Procedures Procedure Date Related Diagnosis Body Site [...]
--- OUTSIDE RECORDS SUMMARY | 2023-06-29 02:58 | XMS_ITS | Continuity of Care Document ---
Author Name Unknown Organization [facility] Address [address] [place] [address]- Care Team Providers Care Shell Coremaker Name Role Phone Foreign [place] MD Primary Care Physician Encounter [facility] Date(s): 12/17/19 - 12/24/19 [facility] [address] [place] [address] [facility] Referring Physician: Foreign [place] MD Allergies, Adverse [...] (oldterm) 04/30/08 Give n 1Result Comment: [06/12/2018] [facility]-[id number] 2Result Comment: [06/26/2013] ORDERRED BY FOREIGN [place] MD 3Admin Note: historical data 4Admin Note: [employer] of [facility] VIS [id number] given 5Result Comment: error 6Admin Note: h1n1 [...] # 120 tablet, 3 Refills, Soft Stop, 10/07/19 14:14:00 EST, [id number], 177, cm, 09/27/19 8:18:00 EST, Height, 119.9, kg, 05/13/19 16:58:00 EDT, Dry Weight Start Date: 10/07/19 Status: Ordered Eliquis 5 mg oral tablet [...] By Mouth, Daily, # 30 tablet, Refills 1, Tot. Refills 1, Maintenance, 12/17/19 10:31:00 EDT, Route to Pharmacy Electronically, [facility]/pharmacy #[id number], 177, cm, 09/27/19 8:18:00 EST, Height, 119.9, kg, 05/13/19 16:58:00 EDT, Dry Weight Start Date: 12/17/19 Stop Date: 02/15/20 Status: Ordered Vitamin D3 2000 intl units oral tablet 1 tablet = 2,000 International_Units, By Mouth, Daily, # 90 tablet, 0 Refills, Maintenance, 10/07/19 13:58:00 EST, [facility]/pharmacy #[id number], 177, cm, 09/27/19 8:18:00 [...] D deficiency(Confirmed) Active 1neos 2documented at [facility];referred repair 3UNDEFINED, BIOPSY PENDING 4ablated 08-08 [...]
--- OUTSIDE RECORDS SUMMARY | 2023-06-29 02:58 | XMS_ITS | Continuity of Care Document ---
Author Name Unknown Organization [facility] Address [address] [place] [address]- Care Team Providers Care Traffic Control Supervisor Name Role Phone Geovanna Ada CEVALLOS Primary Care Physician [place] [facility] [place] [facility] [address] [place] [address]- [place] Allergies, Adverse Reactions, Alerts No Known Allergies Immunizations Given and Recorded Vaccine Date Status Refusal Reason SARS-CoV-2 mRNA (uevmixc-sllq-vszhg) vax 1 04/18/22 Given SARS-CoV-2 (COVID-19) mRNA [...] (oldterm) 04/30/08 Give n 1Result Comment: [facility]-[id number] 2Result Comment: [facility]-[id number] 3Result Comment: [06/12/2018] [facility]-[id number] 4Result Comment: [06/26/2013] ORDERRED BY GRAYSON ACEVEDO MD 5Admin Note: historical data 6Admin Note: [employer] [facility] [place]IS [phone] given 7Result Comment: error 8Admin Note: h1n1 also 9Result Comment: LOT #[id number]; PREVIOUSLY COMPLETED INJECTION HAD NOT BEEN GIVEN. 10Admin Note: given in clinic Medications amiodarone 200 mg oral tablet 200 mg, 1, tablet, By Mouth, Daily, # 30 tablet, Refills 6, Tot. Refills 6, Maintenance, 06/22/22 17:21:00 EDT, Route to Pharmacy Electronically, [facility]/pharmacy #[id number], 178, cm, 06/16/22 11:19:00 EDT, Height, 118, kg, 05/13/22 6:24:00 EDT, Dry Weight Start Date: 06/22/22 Stop Date: 01/18/23 Status: Ordered amiodarone 200 mg oral tablet See Instructions, TAKE 1 TABLET BY MOUTH EVERY DAY, # 90 tablet, Refills 3, Maintenance, 11/25/22 7:37:00 EDT, Instructions Replace Required Details, Route to Pharmacy Electronically, [facility], 178, cm, 06/16/22 11:19:00 EDT, Height, 118, kg, 0... Start Date: 11/25/22 Status: Ordered buPROPion 150 mg/24 hours (XL) oral tablet, extended release 1 tablet, By Mouth, Every 24 hours, # 90 tablet, 1 Refills, Maintenance, 07/07/22 19:24:00 EST, [facility], 90, TAKE 1 TABLET BY MOUTH EVERY 24 HOURS, 178, cm, 06/16/22 11:19:00 EDT, Height, 118, kg, 05/13/22 6:24:00 EDT, Dry Weight Start Date: 07/07/22 Status: Ordered dicyclomine 20 mg oral tablet 1 tablet, By Mouth, 4 times a day, PRN NEEDED, # 360 tablet, 1 Refills, [facility], 177, cm, 08/05/21 11:04:00 EST, Height Start Date: 01/02/22 Status: Ordered Eliquis 5 mg oral tablet See Instructions, TAKE 1 TABLET BY MOUTH TWICE A DAY FOR 30 DAYS, # 180 tablet, 3 Refills, [facility] 70511, 177, cm, 02/18/22 10:35:00 EDT, Height, 115.9, kg, 02/18/22 10:29:00 EDT, Dry Weight Start Date: 03/01/22 Status: Ordered omeprazole 20 mg oral enteric coated capsule 1 capsule, By Mouth, 2 times a day, # 60 capsule, 0 Refills, Maintenance, 12/25/22 16:25:00 EDT, [facility], 178, cm, 06/16/22 11:19:00 EDT, Height, 118, kg, 05/13/22 6:24:00 EDT, Dry Weight Start Date: 12/25/22 Status: Ordered Toprol XL 50 mg oral tablet, extended release 50 mg, 1, tablet, By Mouth, Daily, # 30 tablet, Refills 11, Tot. Refills 11, Maintenance, 09/23/22 8:02:00 EST, Route to Pharmacy Electronically, [facility]/pharmacy #[id number], 178, cm, 06/16/22 11:19:00 EDT, Height, 118, kg, 05/13/22 6:24:00 EDT, Dry Weight Start Date: 09/23/22 Status: Ordered Vitamin D3 1000 intl units oral tablet 1 tablet, By Mouth, Daily, # 90 tablet, 0 Refills, [facility], 177, cm, 02/18/22 10:35:00 EDT,Height, 115.9, kg, [...] 08/24/09 Active Cholesteatoma Confirmed Active COVID-19 Confirmed 5/8/22 Active Hearing loss in right ear/prior sx ear drum Confirmed Active IBS [Irritable bowel syndrome] 3, 4, 5 Confirmed Active Impaired fasting glucose Confirmed 11/08/20 Active Insomnia Confirmed Active Current use of care home anticoagulation/advi sed medic alert Confirmed Active Depression, [...] D deficiency Confirmed Active 1neos 2documented at [facility];referred repair 3Confirmed by second opinion consultation [...] Team Personnel Name: Ada Austin NP Position: [facility] PCO Associate Professional Member Role: PCP Address: Address: [address] [place] [address]- Name: Jono Hanna MD Position: [facility] Cardiology MD Member Role: Lifetime Consulting Physician Address: Address: [address] [place] [address] [place] [address]- Name: Juany Booth RN Position: S RN Member Role: Primary Care Nurse Name: Joey Tan RN Position: S RN Member Role: Primary Care Nurse Name: Tami Lucas RN Position: S RN Member Role: Primary Care Nurse Care Team Related Persons Name: IFRAHTONY Aj Address: home [address] [place] [address] Name: MINDI BRENNAN Address: home [address] [place] [address] [place]
--- OUTSIDE RECORDS SUMMARY | 2023-06-29 02:58 | XMS_ITS | Continuity of Care Document ---
Author Name Unknown Organization [facility] Address [address] [place] [address]- Care Team Providers Care Power Machine Operator Name Role Phone Geovanna Ada CEVALLOS Primary Care Physician Encounter [facility] Date(s): 03/16/23 - 04/15/23 [facility] [address] [place] [address]- [place] Allergies, Adverse Reactions, Alerts No Known Allergies Immunizations Given and Recorded Vaccine Date Status Refusal Reason SARS-CoV-2 mRNA (vbknsju-xfhe-ecmhi) vax 1 04/18/22 Given SARS-CoV-2 (COVID-19) mRNA [...] 04/25/12 Given FluLaval (oldterm) 6 07/08/10 Given Influenza Virus Vaccine (oldterm) 7 05/28/09 Given Pneumococcal Vaccine (oldterm) 8 08/19/08 Given Influenza Inactive (IM) (oldterm) 9 08/02/08 Given Tet/Diphth/Acel, Pertussis (oldterm) 04/30/08 Give n 1Result Comment: [facility]-[id number] 2Result Comment: [facility]-[id number] 3Result Comment: [06/12/2018] [facility]-[id number] 4Result Comment: [06/26/2013] ORDERRED BY GRAYSON ACEVEDO MD 5Admin Note: historical data 6Admin Note: [employer] [facility] VIS [id number] given 7Admin Note: h1n1 also 8Result Comment: LOT #[id number]; PREVIOUSLY COMPLETED INJECTION HAD NOT BEEN GIVEN. 9Admin Note: given in clinic Medications amiodarone 200 mg oral tablet 200 mg, 1, tablet, By Mouth, Daily, # 30 tablet, Refills 6, Tot. Refills 6, Maintenance, 06/22/22 17:21:00 EDT, Route to Pharmacy Electronically, [facility]/pharmacy #[id number], 178, cm, 06/16/22 11:19:00 EDT, Height, 118, kg, 05/13/22 6:24:00 EDT, Dry Weight Start Date: 06/22/22 Stop Date: 01/18/23 Status: Ordered amiodarone 200 mg oral tablet See Instructions, TAKE 1 TABLET BY MOUTH EVERY DAY, # 90 tablet, Refills 3, Maintenance, 11/25/22 7:37:00 EDT, Instructions Replace Required Details, Route to Pharmacy Electronically, [facility], 178, cm, 06/16/22 11:19:00 EDT, Height, 118, kg, 0... Start Date: 11/25/22 Status: Ordered buPROPion 150 mg/24 hours (XL) oral tablet, extended release 1 tablet, By Mouth, Every 24 hours, # 90 tablet, 1 Refills, Maintenance, 07/07/22 19:24:00 EST, [facility], 90, TAKE 1 TABLET BY MOUTH EVERY 24 HOURS, 178, cm, 06/16/22 11:19:00 EDT, Height, 118, kg, 05/13/22 6:24:00 EDT, Dry Weight Start Date: 07/07/22 Status: Ordered dicyclomine 20 mg oral tablet 1 tablet, By Mouth, 4 times a day, PRN NEEDED, # 360 tablet, 1 Refills, [facility], 177, cm, 08/05/21 11:04:00 EST, Height Start Date: 01/02/22 Status: Ordered Eliquis 5 mg oral tablet 1 tablet = 5 mg, By Mouth, 2 times a day, for 90 days, # 180 tablet, 3 Refills, Physician Stop 03/18/24 11:59:00 EDT, 03/24/23 11:59:00 EDT Start Date: 03/24/23 Stop Date: 03/18/24 Status: Ordered omeprazole 20 mg oral enteric coated capsule 1 capsule, By Mouth, 2 times a day, # 60 capsule, 0 Refills, Maintenance, 03/20/23 7:49:00 EDT, [facility], 178, cm, 02/02/23 15:13:00 EDT, Height, 118, kg, 05/13/22 6:24:00 EDT, Dry Weight Start Date: 03/20/23 Status: Ordered Toprol XL 50 mg oral tablet, extended release 50 mg, 1, tablet, By Mouth, Daily, # 30 tablet, Refills 11, Tot. Refills 11, Maintenance, 09/23/22 8:02:00 EST, Route to Pharmacy Electronically, [facility]/pharmacy #[id number], 178, cm, 06/16/22 11:19:00 EDT, Height, 118, kg, 05/13/22 6:24:00 EDT, Dry Weight Start Date: 09/23/22 Status: Ordered Vitamin D3 1000 intl units oral tablet 1 tablet, By Mouth, Daily, # 90 tablet, 0 Refills, [facility], 177, cm, 02/18/22 10:35:00 EDT,Height, 115.9, kg, 02/18/22 10:29:00 EDT, Dry Weight Start Date: 04/01/22 Status: Ordered Problem List Condition Confirmation Course Effective Dates Status H ealth Status Informant Ascending aortic aneurysm stable 4cm 2020/stable 2021 Confirmed 07/31/19 Active Anxiety Confirmed 03/13/08 Active Traumatic arthritis of right foot 1 Confirmed Active Atrial septal defect, secundum 2 Confirmed 08/24/09 Active Cholesteatoma Confirmed Active Hearing loss in right ear/prior sx ear drum Confirmed Active IBS [Irritable bowel syndrome] 3, 4, 5 Confirmed Active Impaired fasting glucose Confirmed 11/08/20 Active Current use of long chain quiller tender anticoagulation/advi sed medic alert Confirmed Active Mitral valve insufficiency 6, 7 Confirmed Active Myofascial pain 8 Confirmed Active Lung nodule PET 2019 /no chng ct angio 2008/2021 Confirmed 10/24/19 Active Obstructive sleep apnea syndrome ahi10.08/2020 9, 10 Confirmed Active Paroxysmal A-fib catheter ablation 2011 11, 12, 13, 14, 15, 16 Confirmed Active Status post patch closure of ASD Confirmed Active Depression, major, recurrent, in remission Confirmed Active Severe obesity (BMI 35.0-39.9) with comorbidity Confirmed Active Vitamin D deficiency Confirmed Active 1neos 2documented at [facility];referred repair 3Confirmed by second opinion [...] team information Care Team Personnel Name: Geovanna [employer] PILOT, Ada Desai Position: [facility] PCO Associate Professional Member Role: PCP Address: Address: [address] [place] [address]- Name: Jono Hanna MD Position: [facility] Cardiology MD Member Role: Lifetime Consulting Physician Address: Address: [address] [place] [address] [facility] [place] [address] Name: Juany Booth RN Position: S RN Member Role: Primary Care Nurse Name: Joey Tan RN Position: S RN Member Role: Primary Care Nurse Name: Tami Lucas RN Position: S RN Member Role: Primary Care Nurse Care Team Related Persons Name: TONY SAMSON Address: home [address] [place] [address] Name: MINDI BRENNAN Address: home [address] [place] [address] [place]
--- OUTSIDE RECORDS SUMMARY | 2023-06-29 02:58 | XMS_ITS | Continuity of Care Document ---
Author Name Unknown Organization [facility] Josh lt Address [address] [place] [address]- Care Team Providers Care Bed Laborer Name Role Phone Geovanna HEAD OF PRODUCTAda Primary Care Physician [phone] Encounter [facility] Date(s): 04/14/22 - 05/14/22 [facility] Adult [address] [place] [address]- Allergies, Adverse Reactions, Alerts No Known Allergies Immunizations Given and Recorded Vaccine Date Status Refusal Reason SARS-CoV-2 mRNA (ykitnax-yukx-ryzao) vax 1 04/18/22 Given SARS-CoV-2 (COVID-19) mRNA [...] Pertussis (oldterm) 04/30/08 Give n 1Result Comment: [facility]-[id number] 2Result Comment: [facility]-[id number] 3Result Comment: [06/12/2018] [facility]-[id number] 4Result Comment: [06/26/2013] ORDERRED BY GRAYSON ACEVEDO MD 5Admin Note: historical data 6Admin Note: [employer] [facility] VIS [id number] given 7Result Comment: error 8Admin Note: h1n1 also 9Result Comment: LOT #[id number]; PREVIOUSLY COMPLETED INJECTION HAD NOT BEEN GIVEN. 10Admin Note: given in clinic Medications amiodarone 200 mg oral tablet 200 mg, 1, tablet, By Mouth, Daily, # 30 tablet, Refills 6, Tot. Refills 6, Maintenance, 03/28/22 12:22:00 EDT, Route to Pharmacy Electronically, [facility]/pharmacy #[id number], 177, cm, 02/18/22 10:35:00 EDT, Height, 115.9, kg, 02/18/22 10:29:00 EDT, Dry Weight Start Date: 03/28/22 Stop Date: 10/24/22 Status: Ordered dicyclomine 20 mg oral tablet 1 tablet, By Mouth, 4 times a day, PRN NEEDED, # 360 tablet, 1 Refills, [facility], 177, cm, 08/05/21 11:04:00 EST, Height Start [...] # 180 tablet, 3 Refills, [facility], 177, cm, 02/18/22 10:35:00 EDT, Height, 115.9, kg, 02/18/22 10:29:00 EDT, Dry Weight Start Date: 03/01/22 Status: Ordered omeprazole 20 mg oral delayed release tablet 1 tablet = 20 mg, By Mouth, 2 times a day, # 60 tablet, 0 Refills, Maintenance, 05/13/22 17:23:00 EDT, EC Tablet, [facility]/pharmacy #[id number], Partial fill upon patient request [...] to Pharmacy Electronically, [facility]/pharmacy #[id number], Partial fill upon patient request if the prescription is for a schedule II opioid dr... Start Date: 08/26/21 Status: Ordered Vitamin D3 1000 intl units oral tablet 1 tablet, By Mouth, Daily, # 90 tablet, 0 Refills, [facility] 06472, 177, cm, 02/18/22 10:35:00 EDT,Height, 115.9, kg, [...] 11/08/20 Active Insomnia(Confirmed) Active Current use of prison anticoagulation/advised medic alert(Confirmed) Active Depression, major(Confirmed) Active Mitral valve insufficiency(C onfirmed) 6, 7 Active Myofascial pain(Confirmed) 8 Active Lung nodule PET 2019 /no chn g ct angio 2008/stable 2021(Confirmed) 10/24/19 Active Obstructive sleep apnea synd shaji ahi10.08/2020(Confirmed) 9, 10 Active Paroxysmal A-fib catheter ab lation 2011(Confirmed) 11, 12, 13, 14, 15, 16 Active Status post patch closure of ASD(Confirmed) Active Severe obesity(Confirmed) Active Vitamin D deficiency(Confirmed) Active 1neos 2documented at [facility];referred repair 3Confirmed by second opinion consultation 4seering [...] Team Personnel Name: Ada Austin NP Address: [address] [place] [id number]
--- OUTSIDE RECORDS SUMMARY | 2023-06-29 02:58 | XMS_ITS | Continuity of Care Document ---
Author Name Unknown Organization [facility] Josh lt Address [address] [place] [address]- Care Team Providers Care Fireworks Assembly Supervisor Name Role Phone Geovanna PLANT GUIDE, Ada Desai Primary Care Physician [phone] Encounter [facility] [place] Date(s): 06/07/22 - 06/14/22 [facility] Adult [address] [place] [address]- Encounter Diagnosis Sinusitis(Discharge Diagnosis) - 06/07/22 Attending Physician: Miroslava CURTIS, Foreign [place] Allergies, Adverse Reactions, Alerts No Known Allergies Immunizations Given and Recorded Vaccine Date Status Refusal Reason SARS-CoV-2 mRNA (ldniqva-nicx-nfcve) vax 1 04/18/22 Given SARS-CoV-2 (COVID-19) mRNA [...] 1Result Comment: [facility]-[id number] 2Result Comment: [facility]-[id number] 3Result Comment: [06/12/2018] [facility]-[id number] 4Result Comment: [06/26/2013] ORDERRED BY FOREIGN ACEVEDO MD 5Admin Note: historical data 6Admin Note: [employer] [facility] [place] [id number] given 7Result Comment: error 8Admin Note: h1n1 also 9Result Comment: LOT #[id number]; PREVIOUSLY COMPLETED INJECTION HAD NOT BEEN GIVEN. 10Admin Note: given in clinic Medications amiodarone 200 mg oral tablet 200 mg, 1, tablet, By Mouth, Daily, # 30 tablet, Refills 6, Tot. Refills 6, Maintenance, 03/28/22 12:22:00 EDT, Route to Pharmacy Electronically, [facility]/pharmacy #[id number], 177, cm, 02/18/22 10:35:00 EDT, Height, 115.9, kg, 02/18/22 10:29:00 EDT, Dry Weight Start Date: 03/28/22 Stop Date: 10/24/22 Status: Ordered dicyclomine 20 mg oral tablet 1 tablet, By Mouth, 4 times a day, PRN NEEDED, # 360 tablet, 1 Refills, [facility], 177, cm, 08/05/21 11:04:00 EST, Height Start [...] # 180 tablet, 3 Refills, [facility], 177, cm, 02/18/22 10:35:00 EDT, Height, 115.9, kg, 02/18/22 10:29:00 EDT, Dry Weight Start Date: 03/01/22 Status: Ordered omeprazole 20 mg oral delayed release tablet 1 tablet = 20 mg, By Mouth, 2 times a day, # 60 tablet, 0 Refills, Maintenance, 05/13/22 17:23:00 EDT, EC Tablet, [facility]/pharmacy #[id number], Partial fill upon patient request if the prescription is for a schedule II opioid drug., 177, cm, 05/13/22 13:26:00 E... Start Date: 05/13/22 Stop Date: 06/12/22 Status: Ordered Toprol XL 50 mg oral tablet, extended release 50 mg, 1, tablet, By Mouth, Daily, # 30 tablet, Refills 11, Tot. Refills 11, Maintenance, 08/26/21 14:15:00 EST, [id number] fill upon patient request if the prescription is for a schedule II opioid drCher. Start Date: 08/26/21 Status: Ordered Vitamin D3 1000 intl units oral tablet 1 tablet, By Mouth, Daily, # 90 tablet, 0 Refills, [facility] 499[facility], 177, cm, 02/18/22 10:35:00 EDT,Height, 115.9, kg, [...] Active Insomnia Confirmed Active Current use of senior care anticoagulation/advi sed medic alert Confirmed Active Depression, [...] D deficiency Confirmed Active 1neos 2documented at [facility];referred repair 3Confirmed by second opinion consultation 4seering GI still 5Dr [place] 6no need 7antibiotic prophylaxis;reminded;is aware 8low back;sees spine sports 9AHI 5.9 2008 study 10no significant issues per polysomnogram 11ablated 08-08 12May 07;echo EF 55% 13echo january 04 ef 55 % 14reduced EF 45% 15normal coronaries per angiography 16abnormal stress test; cardiac cath pending Diagnosis Diagnosis Type Effective Dates Health Status Clini shaun Service Informant Sinusitis Discharge Diagnosis 06/07/22 Vital Signs Most recent to oldest [Reference Range]: 1 Height 177 cm (06/07/22 11:01 AM) Social History Social History Type Response Smoking Status Never smoker; Tobacc o user in household: No entered on: 01/17/17 Sex Patient Care team information Personnel Name: Ada Austin NP Address: Address: [address] [place] [id number]
--- OUTSIDE RECORDS SUMMARY | 2023-06-29 02:58 | XMS_ITS | Continuity of Care Document ---
Author Name Unknown Organization [facility] Address [address] [place] [address]- Care Team Providers Care Sustainable Systems Analyst Name Role Phone Geovanna Ada CEVALLOS Primary Care Physician Encounter [facility] Date(s): 11/25/22 - 12/25/22 [facility] [address] [place] [address]- [place] Allergies, Adverse Reactions, Alerts No Known Allergies Immunizations Given and Recorded Vaccine Date Status Refusal Reason SARS-CoV-2 mRNA (qkcyvrr-gkqx-jnwfe) vax 1 04/18/22 Given SARS-CoV-2 (COVID-19) mRNA [...] (oldterm) 04/30/08 Give n 1Result Comment: [facility]-[id number] 2Result Comment: [facility]-[id number] 3Result Comment: [06/12/2018] [facility]-[id number] 4Result Comment: [06/26/2013] ORDERRED BY GRAYSON ACEVEDO MD 5Admin Note: historical data 6Admin Note: [employer] [facility] VIS [id number] given 7Result Comment: error 8Admin Note: h1n1 also 9Result Comment: LOT #[id number]; PREVIOUSLY COMPLETED INJECTION HAD NOT BEEN GIVEN. 10Admin Note: given in clinic Medications amiodarone 200 mg oral tablet 200 mg, 1, tablet, By Mouth, Daily, # 30 tablet, Refills 6, Tot. Refills 6, Maintenance, 06/22/22 17:21:00 EDT, Route to Pharmacy Electronically, [facility]/pharmacy #[id number], 178, cm, 06/16/22 11:19:00 EDT, Height, 118, kg, 05/13/22 6:24:00 EDT, Dry Weight Start Date: 06/22/22 Stop Date: 01/18/23 Status: Ordered amiodarone 200 mg oral tablet See Instructions, TAKE 1 TABLET BY MOUTH EVERY DAY, # 90 tablet, Refills 3, Maintenance, 11/25/22 7:37:00 EDT, Instructions Replace Required Details, Route to Pharmacy Electronically, [facility], 178, cm, 06/16/22 11:19:00 EDT, Height, 118, kg, 0... Start Date: 11/25/22 Status: Ordered buPROPion 150 mg/24 hours (XL) oral tablet, extended release 1 tablet, By Mouth, Every 24 hours, # 90 tablet, 1 Refills, Maintenance, 07/07/22 19:24:00 EST, [facility], 90, TAKE 1 TABLET BY MOUTH EVERY 24 HOURS, 178, cm, 06/16/22 11:19:00 EDT, Height, 118, kg, 05/13/22 6:24:00 EDT, Dry Weight Start Date: 07/07/22 Status: Ordered dicyclomine 20 mg oral tablet 1 tablet, By Mouth, 4 times a day, PRN NEEDED, # 360 tablet, 1 Refills, [facility], 177, cm, 08/05/21 11:04:00 EST, Height Start Date: 01/02/22 Status: Ordered Eliquis 5 mg oral tablet See Instructions, TAKE 1 TABLET BY MOUTH TWICE A DAY FOR 30 DAYS, # 180 tablet, 3 Refills, [facility], 177, cm, 02/18/22 10:35:00 EDT, Height, 115.9, kg, 02/18/22 10:29:00 EDT, Dry Weight Start Date: 03/01/22 Status: Ordered omeprazole 20 mg oral enteric coated capsule 1 capsule, By Mouth, 2 times a day, # 60 capsule, 0 Refills, Maintenance, 12/25/22 16:25:00 EDT, [facility], 178, cm, 06/16/22 11:19:00 EDT, Height, 118, kg, 05/13/22 6:24:00 EDT, Dry Weight Start Date: 12/25/22 Status: Ordered Toprol XL 50 mg oral tablet, extended release 50 mg, 1, tablet, By Mouth, Daily, # 30 tablet, Refills 11, Tot. Refills 11, Maintenance, 09/23/22 8:02:00 EST, Route to Pharmacy Electronically, [facility]/pharmacy #[id number], 178, cm, 06/16/22 11:19:00 EDT, Height, 118, kg, 05/13/22 6:24:00 EDT, Dry Weight Start Date: 09/23/22 Status: Ordered Vitamin D3 1000 intl units oral tablet 1 tablet, By Mouth, Daily, # 90 tablet, 0 Refills, [facility], 177, cm, 02/18/22 10:35:00 EDT,Height, 115.9, kg, [...] Active Insomnia Confirmed Active Current use of retirement anticoagulation/advi sed medic alert Confirmed Active Depression, [...] Team Personnel Name: Ada Austin NP Position: [facility] PCO Associate Professional Member Role: PCP Address: Address: [address] [place] [id number]- Name: Jono Hanna MD Position: [facility] Cardiology MD Member Role: Lifetime Consulting Physician Address: Address: [address] [place] [address] [place] [address]- Name: Juany Booth RN Position: S RN Member Role: Primary Care Nurse Name: Joey Tan RN Position: S RN Member Role: Primary Care Nurse Name: Tami Lucas RN Position: S RN Member Role: Primary Care Nurse Care Team Related Persons Name: IFRAHTONY Aj Address: [address] [place] [address] Name: MINDI BRENNAN Address: home [address] [place] [address] [place]
--- OUTSIDE RECORDS SUMMARY | 2023-06-29 02:58 | XMS_ITS | Continuity of Care Document ---
Author Name Unknown Organization [facility] Address [address] [place] [address]- Care Team Providers Care Emt Paramedic Name Role Phone Geovanna Ada CEVALLOS Primary Care Physician [phone] [place] [facility] [place](s): 06/01/22 - 07/01/22 [facility] [address] [place] [address]- [place] Allergies, Adverse Reactions, Alerts No Known Allergies Immunizations Given and Recorded Vaccine Date Status Refusal Reason SARS-CoV-2 mRNA ([id number]-[id number]-[id number]) vax 1 04/18/22 Given SARS-CoV-2 (COVID-19) mRNA [...] n 1Result Comment: [facility]-[id number] 2Result Comment: [facility]-[id number] 3Result Comment: [06/12/2018] [facility]-[id number] 4Result Comment: [06/26/2013] ORDERRED BY GRAYSON ACEVEDO MD 5Admin Note: historical data 6Admin Note: [employer] [facility] VIS [phone] given 7Result Comment: error 8Admin Note: h1n1 also 9Result Comment: LOT #[id number]; PREVIOUSLY COMPLETED INJECTION HAD NOT BEEN GIVEN. 10Admin Note: given in clinic Medications amiodarone 200 mg oral tablet 200 mg, 1, tablet, By Mouth, Daily, # 30 tablet, Refills 6, Tot. Refills 6, Maintenance, 06/22/22 17:21:00 EDT, Route to Pharmacy Electronically, [facility]/pharmacy #[id number], 178, cm, 06/16/22 11:19:00 EDT, Height, 118, kg, 05/13/22 6:24:00 EDT, Dry Weight Start Date: 06/22/22 Stop Date: 01/18/23 Status: Ordered dicyclomine 20 mg oral tablet 1 tablet, By Mouth, 4 times a day, PRN NEEDED, # 360 tablet, 1 Refills, [facility], 177, cm, 08/05/21 11:04:00 EST, Height Start Date: 01/02/22 Status: Ordered Eliquis 5 mg oral tablet See Instructions, TAKE 1 TABLET BY MOUTH TWICE A DAY FOR 30 DAYS, # 180 tablet, 3 Refills, [facility] ST[facility] 518[facility], 177, cm, 02/18/22 10:35:00 EDT, Height, 115.9, kg, 02/18/22 10:29:00 EDT, Dry Weight Start Date: 03/01/22 Status: Ordered omeprazole 20 mg oral delayed release tablet 1 tablet = 20 mg, By Mouth, 2 times a day, for 30 days, # 60 tablet, 0 Refills, Hard Stop 07/30/22 15:54:00 EST, 06/30/22 15:54:00 EDT, EC Tablet, [facility]/pharmacy #[id number], Partial fill upon patient request if the prescription is for a schedule II opioid . Start Date: 06/30/22 Stop Date: 07/30/22 Status: Ordered omeprazole 20 mg oral delayed release tablet 1 tablet = 20 mg, By Mouth, 2 times a day, # 60 tablet, 0 Refills, Maintenance, 07/30/22 15:54:00 EST, [facility] Partial fill upon patient request if the prescription is for a schedule II opioid drug., 178, cm, 06/16/22 11:19:00 E... Start Date: 07/30/22 Stop Date: 08/29/22 Status: Ordered Toprol XL 50 mg oral tablet, extended release 50 mg, 1, tablet, By Mouth, Daily, # 30 tablet, Refills 11, Tot. Refills 11, Maintenance, 08/26/21 14:15:00 EST, [id number] Partial fill upon patient request if the prescription is for a schedule II opioid dr... Start Date: 08/26/21 Status: Ordered Vitamin D3 1000 intl units oral tablet 1 tablet, By Mouth, Daily, # 90 tablet, 0 Refills, [facility] STORE 77045, 177, cm, 02/18/22 10:35:00 EDT,Height, 115.9, kg, [...] Active Insomnia Confirmed Active Current use of prison anticoagulation/advi sed medic alert Confirmed Active Depression, [...] D deficiency Confirmed Active 1neos 2documented at [facility];referred repair 3Confirmed by second [...] Name: Geovanna CEVALLOS, Ada Desai Address: Address: [address] [place] [address] Adult [facility] [place] [address]-
--- OUTSIDE RECORDS SUMMARY | 2023-06-29 02:58 | XMS_ITS | Continuity of Care Document ---
Author Name Unknown Organization [facility] Josh lt Address [address] [place] [address]- Care Team Providers Care Buckle Attacher Name Role Phone Geovanna DRAFTER CIVIL (CAD), Ada Desai Primary Care Physician [phone] Encounter [facility] [place] Date(s): 12/21/21 - 04/20/22 [facility] Adult [address] [place] [address]- Attending Physician: Miroslava CURTIS, Foreign Woodson Allergies, Adverse Reactions, Alerts No Known Allergies Immunizations Given and Recorded Vaccine Date Status Refusal Reason SARS-CoV-2 mRNA (pyslkep-wbny-wofmd) vax 1 04/18/22 Given SARS-CoV-2 (COVID-19) mRNA [...] Pertussis (oldterm) 04/30/08 Give n 1Result Comment: [facility]-[id number] 2Result Comment: [facility]-[id number] 3Result Comment: [06/12/2018] [facility]-[id number] 4Result Comment: [06/26/2013] ORDERRED BY FOREIGN ACEVEDO MD 5Admin Note: historical data 6Admin Note: [employer] [facility] [place] VIS [phone] given 7Result Comment: error 8Admin Note: h1n1 [...] # 360 tablet, 1 Refills, [facility], 177, cm, 08/05/21 11:04:00 EST, Height Start [...] # 180 tablet, 3 Refills, [facility], 177, cm, 02/18/22 10:35:00 EDT, Height, 115.9, kg, 02/18/22 10:29:00 EDT, Dry Weight Start Date: 03/01/22 Status: Ordered Toprol XL 50 mg oral tablet, extended release 50 mg, 1, tablet, By Mouth, Daily, # 30 tablet, Refills 11, Tot. Refills 11, Maintenance, 08/26/21 14:15:00 EST, Route to Pharmacy Electronically, [facility]/pharmacy #[id number], Partial fill upon patient request if the prescription is for a schedule II opioid . Start Date: 08/26/21 Status: Ordered Vitamin D3 1000 intl units oral tablet 1 tablet, By Mouth, Daily, # 90 tablet, 0 Refills, [facility] 700[facility], 177, cm, 02/18/22 10:35:00 EDT,Height, 115.9, kg, 02/18/22 10:29:00 EDT, Dry Weight Start Date: 04/01/22 Status: Ordered Problem List Condition Effective Dates Status Health Status Inform ant Adult BMI 30.0-30.9 kg/sq m(Confirmed) Active Ascending aortic aneurysm st able 4cm 2020/2021(Confirmed) 07/31/19 Active Anxiety(Confirmed) 03/13/08 Active Traumatic arthritis of right foot(Confirmed) 1 Active Atrial septal defect, secundum(Confirmed) 2 08/24/09 Active Cholesteatoma(Confirmed) Active COVID-19(Confirmed) 01/02/22 Active Hearing loss in right ear/pr ior sx ear drum(Confirmed) Active IBS [Irritable bowel syndrome](Confirmed) 3, 4, 5 Active Impaired fasting glucose(Confirmed) 11/08/20 Active Insomnia(Confirmed) Active Current use of [facility] anticoagulation/advised medic alert(Confirmed) Active Depression, major(Confirmed) Active Mitral valve insufficiency(C onfirmed) 6, 7 Active Myofascial pain(Confirmed) 8 Active Lung nodule PET 2019 /no chn g ct angio 2021(Confirmed) 10/24/19 Active Obstructive sleep apnea synd shaji ahi10.08/2020(Confirmed) 9, 10 Active Paroxysmal A-fib catheter ab lation 2011(Confirmed) 11, 12, 13, 14, 15, 16 Active Status post patch closure of ASD(Confirmed) Active Severe obesity(Confirmed) Active Vitamin D deficiency(Confirmed) Active 1neos 2documented at [facility];referred repair 3Confirmed by second opinion [...]
--- OUTSIDE RECORDS SUMMARY | 2023-06-29 02:58 | XMS_ITS | Continuity of Care Document ---
Author Name Unknown Organization [facility] Address [address] [place] [address]- Care Team Providers Care Rn Neurosurgical Name Role Phone Miroslava CURTIS, Foreign Woodson Primary Care Physician [place] [facility] [place] 03/27/22 [facility] [address] [place] [address]- [place] Allergies, Adverse Reactions, Alerts No Known [...] Pertussis (oldterm) 04/30/08 Give n 1Result Comment: [facility]-[id number] 2Result Comment: [06/12/2018] [facility]-[id number] 3Result Comment: [06/26/2013] ORDERRED BY FOREIGN ACEVEDO MD 4Admin Note: historical data 5Admin Note: [employer] [facility] [place] [phone] given 6Result Comment: error 7Admin Note: h1n1 also 8Result Comment: LOT #[id number]; PREVIOUSLY COMPLETED INJECTION HAD NOT BEEN GIVEN. 9Admin Note: given in clinic Medications amiodarone 200 mg oral tablet 400 mg, 2, tablet, By Mouth, Daily, # 60 tablet, Refills 1, Tot. Refills 1, Maintenance, 02/25/22 12:03:00 EDT, Route to Pharmacy Electronically, [facility]/pharmacy #[id number], 177, cm, 02/18/22 10:35:00 EDT, Height, 115.9, kg, 02/18/22 10:29:00 EDT, Dry Weight Start Date: 02/25/22 Stop Date: 04/26/22 Status: Ordered dicyclomine 20 mg oral tablet 1 tablet, By Mouth, 4 times a day, PRN NEEDED, # 360 tablet, 1 Refills, [facility], 177, cm, 08/05/21 11:04:00 EST, Height Start [...] # 180 tablet, 3 Refills, [facility], 177, cm, 02/18/22 10:35:00 EDT, Height, 115.9, [...] capsule, 11 Refills, Maintenance, 05/05/20 9:56:00 EDT, [facility]/pharmacy #[id number], 177, cm, 09/27/19 8:18:00 EST, Height, 119.9, kg, 05/13/19 16:58:00 EDT, Dry Weight Start Date: 05/05/20 Stop Date: 04/30/21 Status: Ordered Toprol XL 50 mg oral tablet, extended release 50 mg, 1, tablet, By Mouth, Daily, # 30 tablet, Refills 11, Tot. Refills 11, Maintenance, 08/26/21 14:15:00 EST, Route to Pharmacy Electronically, [facility]/pharmacy #[id number], Partial fill upon patient request if the prescription is for a schedule II opioid . Start Date: 08/26/21 Status: Ordered Vitamin D3 1000 intl units oral tablet See Instructions, TAKE 1 TABLET BY MOUTH EVERY DAY, # 30 tablet, 2 Refills, [facility] 165[facility], 177, cm, 08/05/21 11:04:00 EST, Height Start [...] Active Insomnia(Confirmed) Active Current use of watermaster anticoagulation(Confirmed) Active Depression, major(Confirmed) Active Mitral valve [...] D deficiency(Confirmed) Active 1neos 2documented at [facility];referred repair 3had EGD 4Confirmed by second [...]
--- OUTSIDE RECORDS SUMMARY | 2023-06-29 02:58 | XMS_ITS | Continuity of Care Document ---
Author Name Unknown Organization [facility] [place] Josh lt Address [address] [place] [address]- Care Team Providers Care Cable Mock Up Assembler Name Role Phone Miroslava CURTIS, Foreign Woodson Primary Care Physician [phone] [place] [facility] [place](s): 11/18/20 - 12/18/20 [facility] [place] Adult [address] [place] [address]- Attending Physician: Admtr, Ar8 Allergies, Adverse Reactions, [...] (oldterm) 04/30/08 Give n 1Result Comment: [06/12/2018] [facility]-[id number] 2Result Comment: [06/26/2013] ORDERRED BY FOREIGN ACEVEDO MD 3Admin Note: historical data 4Admin Note: [employer] [facility] VIS [phone] given 5Result Comment: error 6Admin Note: h1n1 also 7Result Comment: LOT #[id number]; PREVIOUSLY COMPLETED INJECTION HAD NOT BEEN GIVEN. 8Admin Note: given in clinic Medications dicyclomine 20 mg oral tablet 1 tablet, By Mouth, 4 times a day, PRN NEEDED, # 360 tablet, 1 Refills, Maintenance, 04/02/20 6:38:00 EDT, [facility], 177, cm, 09/27/19 8:18:00 EST, Height, 119.9, kg, 05/13/19 16:58:00 EDT,Dry Weight Start Date: 04/02/20 Status: Ordered duloxetine 30 mg oral enteric coated capsule 1 capsule = 30 mg, By Mouth, 2 times a day, # 60 each, 6 Refills, Maintenance, 11/18/20 16:47:00 EDT, [id number], Partial fill upon patient request [...] 01/14/20 14:44:00 EDT, Route to Pharmacy Electronically, [facility]/pharmacy #[id number], 177, cm, 09/27/19 8:18:00 EST, Height, 119.9, kg, 05/13/19 16:58:00 EDT, Dry Weight Start Date: 01/14/20 Stop Date: 01/08/21 Status: Ordered Vitamin D3 1000 intl units oral tablet 1 tablet, By Mouth, Daily, # 30 tablet, 5 Refills, Maintenance, 12/03/20 17:56:00 EDT, [facility], 177, cm, 11/10/20 14:43:00 EDT, Height, 119.9, [...] 11/08/20 Active Insomnia(Confirmed) Active Current use of long-term anticoagulation(Confirmed) Active Depression, major(Confirmed) Active Mitral valve insufficiency(C onfirmed) 8, 9 Active Myofascial pain(Confirmed) 10 Active Lung nodule PET 2019 /no vch ng ct angio 2008(Confirmed) 10/24/19 Active Obstructive sleep apnea synd shaji ahi 5.9(Confirmed) 11, 12 Active Paroxysmal A-fib(Confirmed) 13, 14, 15, 16, 17, 18 Active Status post patch closure of ASD(Confirmed) Active Vitamin D deficiency(Confirmed) Active 1neos 2documented at [facility];referred repair 3UNDEFINED, BIOPSY PENDING 4had EGD 5Confirmed by second opinion consultation 6seering GI still 7Dr [place] 8no need 9antibiotic prophylaxis;reminded;is aware 10low back;sees spine sports 11AHI 5.9 2008 study 12no significant issues per polysomnogram 13ablated 08-08 14May 07;echo EF 55% 15echo january 04 ef 55 % 16reduced EF 45% 17normal coronaries per angiography 18abnormal stress test; cardiac cath pending Procedures Procedure [...]
--- OUTSIDE RECORDS SUMMARY | 2023-06-29 02:59 | XMS_ITS | Continuity of Care Document ---
Author Name Unknown Organization [facility] Josh lt Address [address] [place] [address]- Care Team Providers Care Planing Machine Operator Name Role Phone Foreign [place] MD Primary Care Physician Encounter [facility] [place] Date(s): 11/18/20 - 11/25/20 [facility] Adult [address] [place] [address]- Encounter Diagnosis Depression, major(Discharge Diagnosis) - 11/18/20 Attending Physician: Foreign [place] MD Allergies, Adverse [...] (oldterm) 04/30/08 Give n 1Result Comment: [06/12/2018] [facility]-[id number] 2Result Comment: [06/26/2013] ORDERRED BY FOREIGN [place] MD 3Admin Note: historical data 4Admin Note: [employer] [facility] VIS [phone] given 5Result Comment: error 6Admin Note: h1n1 also 7Result Comment: LOT #[id number]; PREVIOUSLY COMPLETED INJECTION HAD NOT BEEN GIVEN. 8Admin Note: given in clinic Medications dicyclomine 20 mg oral tablet 1 tablet, By Mouth, 4 times a day, PRN NEEDED, # 360 tablet, 1 Refills, Maintenance, 04/02/20 6:38:00 EDT, [facility], 177, cm, 09/27/19 8:18:00 EST, Height, 119.9, [...] Refills, Maintenance, 11/10/20 15:04:00 EDT, Tablet, [facility]/pharmacy #[id number], Partial fill upon patient [...] 11/08/20 Active Insomnia(Confirmed) Active Current use of senior living anticoagulation(Confirmed) Active Depression, major(Confirmed) Active Mitral valve insufficiency(C onfirmed) 8, 9 Active Myofascial pain(Confirmed) 10 Active Lung nodule PET 2019 /no vch ng ct angio 2008(Confirmed) 10/24/19 Active Obstructive sleep apnea synd shaji ahi 5.9(Confirmed) 11, 12 Active Paroxysmal A-fib(Confirmed) 13, 14, 15, 16, 17, 18 Active Status post patch closure of ASD(Confirmed) Active Vitamin D deficiency(Confirmed) Active 1neos 2documented at [facility];referred repair 3UNDEFINED, BIOPSY PENDING 4had EGD [...] Diagnosis Diagnosis Type Effective Dates Health Status Cl inical Service Informant Depression, major Discharge Diagnosis 11/18/20 Social History Social History Type Response Smoking Status Never smoker; Tobacc o user in household: No entered on: 01/17/17 Sex
--- OUTSIDE RECORDS SUMMARY | 2023-06-29 02:59 | XMS_ITS | Continuity of Care Document ---
Author Name Unknown Organization [facility] Address [address] [place] [address]- Care Team Providers Care Transportation Maintenance Specialist Name Role Phone Miroslava CURTIS, Foreign Woodson Primary Care Physician Encounter [facility] [place] Date(s): 02/03/22 - 03/05/[address] [address]- Attending Physician: Corie Jeronimo Admitting Physician: AdmCorie martinez Referring Physician: AdmCorie martniez Allergies, Adverse Reactions, Alerts No Known Allergies [...] Pertussis (oldterm) 04/30/08 Give n 1Result Comment: [id number] 2Result Comment: [06/12/2018] [facility]-[id number] 3Result Comment: [06/26/2013] ORDERRED BY FOREIGN ACEVEDO MD 4Admin Note: historical data 5Admin Note: [employer] [facility] VIS [phone] given 6Result Comment: error 7Admin Note: h1n1 also 8Result Comment: LOT #[id number]; PREVIOUSLY COMPLETED INJECTION HAD NOT BEEN GIVEN. 9Admin Note: given in clinic Medications amiodarone 200 mg oral tablet 400 mg, 2, tablet, By Mouth, Daily, # 60 tablet, Refills 1, Tot. Refills 1, Maintenance, 02/25/22 12:03:00 EDT, Route to Pharmacy Electronically, [facility]/pharmacy #[id number], 177, cm, 02/18/22 10:35:00 EDT, Height, 115.9, kg, 02/18/22 10:29:00 EDT, Dry Weight Start Date: 02/25/22 Stop Date: 04/26/22 Status: Ordered dicyclomine 20 mg oral tablet 1 tablet, By Mouth, 4 times a day, PRN NEEDED, # 360 tablet, 1 Refills, [facility] ST[facility] 21165, 177, cm, 08/05/21 11:04:00 EST, Height Start [...] # 180 tablet, 3 Refills, [facility], 177, cm, 02/18/22 10:35:00 EDT, Height, 115.9, [...] capsule, 11 Refills, Maintenance, 05/05/20 9:56:00 EDT, [facility]/pharmacy #[id number], 177, cm, 09/27/19 8:18:00 EST, Height, 119.9, kg, 05/13/19 16:58:00 EDT, Dry Weight Start Date: 05/05/20 Stop Date: 04/30/21 Status: Ordered Toprol XL 50 mg oral tablet, extended release 50 mg, 1, tablet, By Mouth, Daily, # 30 tablet, Refills 11, Tot. Refills 11, Maintenance, 08/26/21 14:15:00 EST, Route to Pharmacy Electronically, [facility]/pharmacy #[id number], Partial fill upon patient request if the prescription is for a schedule II opioid . Start Date: 08/26/21 Status: Ordered Vitamin D3 1000 intl units oral tablet See Instructions, TAKE 1 TABLET BY MOUTH EVERY DAY, # 30 tablet, 2 Refills, [facility] STORE 43575, 177, cm, 08/05/21 11:04:00 EST, Height Start [...] 11/08/20 Active Insomnia(Confirmed) Active Current use of retirement anticoagulation(Confirmed) Active Depression, major(Confirmed) Active Mitral valve [...] Vitamin D deficiency(Confirmed) Active 1neos 2documented at [facility];referred repair 3had EGD 4Confirmed by second [...]
--- OUTSIDE RECORDS SUMMARY | 2023-06-29 02:59 | XMS_ITS | Continuity of Care Document ---
Author Name Unknown Organization [facility] Address [address] [facility] [place] [address]- Care Team Providers Care Machinist Name Role Phone Foreign [place] MD Primary Care Physician [phone] Encounter 11/16/20 - 11/23/20 [facility] [address], [address] [place] [address]- Attending Physician: Foreign [place] MD Admitting Physician: Foreign [place] MD Referring Physician: Foreign [place] MD Allergies, [...] (oldterm) 04/30/08 Give n 1Result Comment: [06/12/2018] [facility]-[id number] 2Result Comment: [06/26/2013] ORDERRED BY FOREIGN [place] MD 3Admin Note: historical data 4Admin Note: [employer] [facility] VIS [phone] given 5Result Comment: error 6Admin Note: h1n1 also 7Result Comment: LOT #[id number]; PREVIOUSLY COMPLETED INJECTION HAD NOT BEEN GIVEN. 8Admin Note: given in clinic Medications dicyclomine 20 mg oral tablet 1 tablet, By Mouth, 4 times a day, PRN NEEDED, # 360 tablet, 1 Refills, Maintenance, 04/02/20 6:38:00 EDT, [facility], 177, cm, 09/27/19 8:18:00 EST, Height, 119.9, [...] 01/14/20 14:44:00 EDT, Route to Pharmacy Electronically, [facility]/pharmacy #[id number], 177, cm, 09/27/19 8:18:00 EST, Height, 119.9, kg, 05/13/19 16:58:00 EDT, Dry Weight Start Date: 01/14/20 Stop Date: 01/08/21 Status: Ordered Vitamin D3 1000 intl units oral tablet 1 tablet = 1,000 International_Units, By Mouth, Daily, # 30 tablet, 0 Refills, Maintenance, 11/10/20 15:04:00 EDT, Tablet, [facility]/pharmacy #[id number], Partial fill upon patient request if [...] D deficiency(Confirmed) Active 1neos 2documented at [facility];referred repair 3UNDEFINED, BIOPSY PENDING 4had EGD [...]
--- OUTSIDE RECORDS SUMMARY | 2023-06-29 02:59 | XMS_ITS | Continuity of Care Document ---
Author Name Unknown Organization [facility] Address [address] [place] [address]- Care Team Providers Care Hide Shaker Name Role Phone Miroslava CURTIS, Foreign Woodson Primary Care Physician [phone] Encounter [facility] Date(s): 01/28/21 - 02/27/21 [facility] [address] [place] [address] [place] Allergies, Adverse Reactions, Alerts Substance Reaction Severity [...] 1Result Comment: [06/12/2018] [facility]-[id number] 2Result Comment: [06/26/2013] ORDERRED BY FOREIGN ACEVEDO MD 3Admin Note: historical data 4Admin Note: [employer] [facility] [place] VIS [phone] given 5Result Comment: error 6Admin Note: h1n1 also 7Result Comment: LOT #[id number]; PREVIOUSLY COMPLETED INJECTION HAD NOT BEEN GIVEN. 8Admin Note: given in clinic Medications dicyclomine 20 mg oral tablet 1 tablet, By Mouth, 4 times a day, PRN NEEDED, # 360 tablet, 1 Refills, Maintenance, 02/02/21 7:03:00 EDT, [facility], 177, cm, 11/10/20 14:43:00 EDT, Height, 119.9, kg, 05/13/19 16:58:00 EDT, Dry Weight Start Date: 02/02/21 Status: Ordered duloxetine 30 mg oral enteric coated capsule 1 capsule = 30 mg, By Mouth, 2 times a day, # 60 each, 6 Refills, Maintenance, 11/18/20 16:47:00 EDT, [facility]/pharmacy #[id number], Partial fill upon patient [...] 02/01/21 8:19:00 EDT, Route to Pharmacy Electronically, 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
--- OUTSIDE RECORDS SUMMARY | 2023-06-29 02:59 | XMS_ITS | Continuity of Care Document ---
Author Name Unknown Organization [facility] Josh lt Address [address] [place] [address]- Care Team Providers Care Wearing Apparel Shaker Name Role Phone Foreign [place] MD Primary Care Physician Encounter [facility] Date(s): 09/27/19 - 10/04/19 [facility] Adult [address] [place] [address]- [facility] Encounter Diagnosis History of atrial fibrillation ablated 2011(Discharge Diagnosis) - 07/01/19 Vitamin D deficiency(Discharge Diagnosis) - 07/01/19 Status post patch closure of ASD(Discharge Diagnosis) - 07/01/19 IBS [Irritable bowel syndrome](Discharge Diagnosis) - 07/01/19 Insomnia(Discharge Diagnosis) - 07/01/19 Asymptomatic PVCs(Discharge Diagnosis) - 09/24/19 Ascending aortic aneurysm 4.0 cm MRI (Discharge Diagnosis) - 09/24/19 Obstructive sleep apnea syndrome ahi 5.9(Discharge Diagnosis) - 09/24/19 Status post catheter ablation of atrial fibrillation(Discharge Diagnosis) - 09/24/19 Cardiomyopathy ef41% MRI Jul 2019(Discharge Diagnosis) - 09/24/19 Physical exam(Discharge Diagnosis) - 09/24/19 Chronic depression(Discharge Diagnosis) - 09/24/19 Attending Physician: Foreign [place] MD Allergies, Adverse [...] (oldterm) 04/30/08 Give n 1Result Comment: [06/12/2018] [facility]-[id number] 2Result Comment: [06/26/2013] ORDERRED BY FOREIGN [place] MD 3Admin Note: historical data 4Admin Note: [facility] [facility] [place] [phone] given 5Result Comment: error 6Admin Note: h1n1 also 7Result Comment: LOT #[id number]; PREVIOUSLY COMPLETED INJECTION HAD NOT BEEN GIVEN. 8Admin Note: given in clinic Medications Aspirin Enteric Coated 81 mg oral delayed release tablet See Instructions, # 90 tablet, Refills 1 Tot. Refills 1, 1 TABLET BY MOUTH DAILY, [facility]/pharmacy #[id number] Start Date: 03/17/19 Status: Ordered buPROPion [...] Vitamin D deficiency(Confirmed) Active 1neos 2documented at [facility];referred repair 3UNDEFINED, BIOPSY PENDING 4ablated 08-08 5May 07;echo EF 55% 6echo january 04 ef 55 % 7reduced EF 45% 8normal coronaries per angiography 9abnormal stress test; cardiac cath pending 10Confirmed by second opinion consultation 11seering GI still 12Dr [place] 13no need 14antibiotic prophylaxis;reminded;is aware 15low back;sees spine sports Diagnosis Diagnosis Type Effective Dates Health Status Clinical Service Informant History of atrial fibrillation ablated 2011 Discharge Diagnosis 07/01/19 IBS [Irritable bowel syndrome] Discharge Diagnosis 07/01/19 Status post patch closure of ASD Discharge Diagnosis 07/01/19 Vitamin D deficiency Discharge Diagnosis 07/01/19 Insomnia Discharge Diagnosis 07/01/19 Ascending aortic aneurysm 4.0 cm MRI Discharge Diagnosis 09/24/19 Asymptomatic PVCs Discharge Diagnosis 09/24/19 Obstructive sleep apnea syndrome ahi 5.9 Discharge Diagnosis 09/24/19 Status post catheter ablation of atrial fibrillation Discharge Diagnosis 09/24/19 Cardiomyopathy ef41% MRI Jul 2019 Discharge Diagnosis 09/24/19 Physical exam Discharge Diagnosis 09/24/19 Chronic depression Discharge Diagnosis 09/24/19 Procedures Procedure Date Related Diagnosis Body Site Status Cardiac MRI reduced ef 41% 1 07/31/19 Completed Colonoscopy- diverticulosis in sigmoid and descending colon. repeat 10 years 2 06/14/19 Completed 1Near transmural enhancement in the mid inferior and inferolateral LV myocardium with associated wall thinning and severe hypokinesis suggestive of prior infarct. Scarring from prior infiltrative disease cannot be entirely excluded but is considered less likely. Biventricular enlargement with reduced LVEF of 41% and RVEF of 39%. Aneurysmal ascending aorta measuring 4.0 cm. 2diverticulosis in sigmoid and descending colon. repeat 10 years Vital Signs Most recent to oldest [Reference Range]: 1 Height 177 cm (09/27/19 8:18 AM) Weight 114.9 kg (09/27/19 8:18 AM) Oxygen Saturation [94-100 %] 97 % (09/27/19 8:18 AM) Pulse Rate [55-90 bpm] 84 bpm (09/27/19 8:18 AM) Body Mass Index [18.5-24.99] 36.68 *>HHI* (09/27/19 8:18 AM) Blood Pressure [90-138/55-84 mm Hg] 112/ 80mm Hg (09/27/19 8:18 AM) Respiratory Rate [16-30 br/min] 16 br/mi n (09/27/19 8:18 AM) Temperature [96.8-100.4 DegF] 97.7 DegF (09/27/19 8:18 AM) Blood pressure sites Arm, left (09/27/19 8:18 AM) Temperature Route Oral (09/27/19 8:18 AM) Social History Social History Type Response Smoking Status Never smoker; Tobacc o user in household: No entered on: 01/17/17 Sex
--- OUTSIDE RECORDS SUMMARY | 2023-06-29 02:59 | XMS_ITS | Continuity of Care Document ---
Author Name Unknown Organization [facility] Josh lt Address [address] [place] [address]- Care Team Providers Care Finance Administrator Name Role Phone Geovanna FUNERAL ARRANGEMENT DIRECTORAda Primary Care Physician Encounter [facility] Date(s): 01/24/23 - 02/25/23 [facility] Adult [address] [place] [address]- Attending Physician: Not on Staff, Attending MD Allergies, Adverse Reactions, Alerts No Known Allergies Immunizations Given and Recorded Vaccine Date Status Refusal Reason SARS-CoV-2 mRNA ([id number]) vax 1 04/18/22 Given SARS-CoV-2 (COVID-19) mRNA [...] (oldterm) 04/30/08 Give n 1Result Comment: [facility]-[id number] 2Result Comment: [facility]-[id number] 3Result Comment: [06/12/2018] [facility]-[id number] 4Result Comment: [06/26/2013] ORDERRED BY GRAYSON ACEVEDO MD 5Admin Note: historical data 6Admin Note: [employer] [facility] VIS [phone] given 7Result Comment: error 8Admin Note: h1n1 also 9Result Comment: LOT #[id number]; PREVIOUSLY COMPLETED INJECTION HAD NOT BEEN GIVEN. 10Admin Note: given in clinic Medications amiodarone 200 mg oral tablet 200 mg, 1, tablet, By Mouth, Daily, # 30 tablet, Refills 6, Tot. Refills 6, Maintenance, 06/22/22 17:21:00 EDT, Route to Pharmacy Electronically, [facility]/pharmacy #[id number], 178, cm, 06/16/22 11:19:00 EDT, Height, 118, kg, 05/13/22 6:24:00 EDT, Dry Weight Start Date: 06/22/22 Stop Date: 01/18/23 Status: Ordered amiodarone 200 mg oral tablet See Instructions, TAKE 1 TABLET BY MOUTH EVERY DAY, # 90 tablet, Refills 3, Maintenance, 11/25/22 7:37:00 EDT, Instructions Replace Required Details, Route to Pharmacy Electronically, [id number], 178, cm, 06/16/22 11:19:00 EDT, Height, 118, kg, 0... Start Date: 11/25/22 Status: Ordered buPROPion 150 mg/24 hours (XL) oral tablet, extended release 1 tablet, By Mouth, Every 24 hours, # 90 tablet, 1 Refills, Maintenance, 07/07/22 19:24:00 EST, [facility], 90, TAKE 1 TABLET BY MOUTH EVERY 24 HOURS, 178, cm, 06/16/22 11:19:00 EDT, Height, 118, kg, 05/13/22 6:24:00 EDT, Dry Weight Start Date: 07/07/22 Status: Ordered dicyclomine 20 mg oral tablet 1 tablet, By Mouth, 4 times a day, PRN NEEDED, # 360 tablet, 1 Refills, [facility], 177, cm, 08/05/21 11:04:00 EST, Height Start Date: 01/02/22 Status: Ordered Eliquis 5 mg oral tablet See Instructions, TAKE 1 TABLET BY MOUTH TWICE A DAY FOR 30 DAYS, # 180 tablet, 3 Refills, [facility], 177, cm, 02/18/22 10:35:00 EDT, Height, 115.9, kg, 02/18/22 10:29:00 EDT, Dry Weight Start Date: 03/01/22 Status: Ordered omeprazole 20 mg oral enteric coated capsule 1 capsule, By Mouth, 2 times a day, # 60 capsule, 0 Refills, Maintenance, 02/20/23 15:41:00 EDT, [facility], 178, cm, 02/02/23 15:13:00 EDT, Height, 118, kg, 05/13/22 6:24:00 EDT, Dry Weight Start Date: 02/20/23 Status: Ordered Toprol XL 50 mg oral tablet, extended release 50 mg, 1, tablet, By Mouth, Daily, # 30 tablet, Refills 11, Tot. Refills 11, Maintenance, 09/23/22 8:02:00 EST, Route to Pharmacy Electronically, [facility]/pharmacy #[id number], 178, cm, 06/16/22 11:19:00 EDT, Height, 118, kg, 05/13/22 6:24:00 EDT, Dry Weight Start Date: 09/23/22 Status: Ordered Vitamin D3 1000 intl units oral tablet 1 tablet, By Mouth, Daily, # 90 tablet, 0 Refills, [facility], 177, cm, 02/18/22 10:35:00 EDT,Height, 115.9, kg, [...] glucose Confirmed 11/08/20 Active Current use of terminal operations manager anticoagulation/advi sed medic alert Confirmed Active Mitral [...] D deficiency Confirmed Active 1neos 2documented at [facility];referred repair 3Confirmed by second opinion consultation [...] Team Personnel Name: Ada Austin NP Position: [facility] PCO Associate Professional Member Role: PCP Address: Address: [address] [place] [id number]- Name: Jono Hanna MD Position: [facility] Cardiology MD Member Role: Lifetime Consulting Physician Address: Address: [address] [place] [address] [place] [address]- [place] Name: Juany Booth RN Position: S RN Member Role: Primary Care Nurse Name: Joey Tan RN Position: S RN Member Role: Primary Care Nurse Name: Tami Lucas RN Position: S RN Member Role: Primary Care Nurse Care Team Related Persons Name: TONY SAMSON Address: [address] [address] Name: MINDI BRENNAN Address: home [address] [place] [address]
--- OUTSIDE RECORDS SUMMARY | 2023-06-29 02:59 | XMS_ITS | Continuity of Care Document ---
Author Name Unknown Organization [facility] Address [address] [place] [address]- Care Team Providers Care Blast Furnace Auxiliaries Supervisor Name Role Phone Geovanna Ada CEVALLOS Primary Care Physician [phone] Encounter [facility] Date(s): 06/22/22 - 07/22/22 [facility] [address] [place] [address]- [place] Allergies, Adverse Reactions, Alerts No Known Allergies Immunizations Given and Recorded Vaccine Date Status Refusal Reason SARS-CoV-2 mRNA ([id number]-[id number]) vax 1 04/18/22 Given SARS-CoV-2 (COVID-19) mRNA [...] 1Result Comment: [facility]-[id number] 2Result Comment: [facility]-[id number] 3Result Comment: [06/12/2018] [facility]-[id number] 4Result Comment: [06/26/2013] ORDERRED BY GRAYSON ACEVEDO MD 5Admin Note: historical data 6Admin Note: [employer] [facility] VIS [id number] given 7Result Comment: error 8Admin Note: h1n1 also 9Result Comment: LOT #[id number]; PREVIOUSLY COMPLETED INJECTION HAD NOT BEEN GIVEN. 10Admin Note: given in clinic Medications amiodarone 200 mg oral tablet 200 mg, 1, tablet, By Mouth, Daily, # 30 tablet, Refills 6, Tot. Refills 6, Maintenance, 06/22/22 17:21:00 EDT, Route to Pharmacy Electronically, [facility]/pharmacy #[id number], 178, cm, 06/16/22 11:19:00 EDT, Height, 118, kg, 05/13/22 6:24:00 EDT, Dry Weight Start Date: 06/22/22 Stop Date: 01/18/23 Status: Ordered buPROPion 150 mg/24 hours (XL) oral tablet, extended release 1 tablet, By Mouth, Every 24 hours, # 90 tablet, 1 Refills, Maintenance, 07/07/22 19:24:00 EST, [facility], 90, TAKE 1 TABLET BY MOUTH EVERY 24 HOURS, 178, cm, 06/16/22 11:19:00 EDT, Height, 118, kg, 05/13/22 6:24:00 EDT, Dry Weight Start Date: 07/07/22 Status: Ordered dicyclomine 20 mg oral tablet 1 tablet, By Mouth, 4 times a day, PRN NEEDED, # 360 tablet, 1 Refills, [facility], 177, cm, 08/05/21 11:04:00 EST, Height Start Date: 01/02/22 Status: Ordered Eliquis 5 mg oral tablet See Instructions, TAKE 1 TABLET BY MOUTH TWICE A DAY FOR 30 DAYS, # 180 tablet, 3 Refills, [facility], 177, cm, 02/18/22 10:35:00 EDT, Height, 115.9, kg, 02/18/22 10:29:00 EDT, Dry Weight Start Date: 03/01/22 Status: Ordered omeprazole 20 mg oral delayed release tablet 1 tablet = 20 mg, By Mouth, 2 times a day, for 30 days, # 60 tablet, 0 Refills, Hard Stop 07/30/22 15:54:00 EST, 06/30/22 15:54:00 EDT, EC Tablet, [facility]/pharmacy #[id number], Partial fill upon patient request if the prescription is for a schedule II opioid Start Date: 06/30/22 Stop Date: 07/30/22 Status: Ordered omeprazole 20 mg oral delayed release tablet 1 tablet = 20 mg, By Mouth, 2 times a day, # 60 tablet, 0 Refills, Maintenance, 07/30/22 15:54:00 EST, EC Tablet, [facility]/pharmacy #[id number], Partial fill upon patient request if the prescription is for a schedule II opioid drug., 178, cm, 06/16/22 11:19:00 E... Start Date: 07/30/22 Stop Date: 08/29/22 Status: Ordered Toprol XL 50 mg oral tablet, extended release 50 mg, 1, tablet, By Mouth, Daily, # 30 tablet, Refills 11, Tot. Refills 11, Maintenance, 08/26/21 14:15:00 EST, Route to Pharmacy Electronically, [facility]/pharmacy #[id number], Partial fill upon patient request if the prescription is for a schedule II opioid Start Date: 08/26/21 Status: Ordered Vitamin D3 1000 intl units oral tablet 1 tablet, By Mouth, Daily, # 90 tablet, 0 Refills, [facility], 177, cm, 02/18/22 10:35:00 EDT,Height, 115.9, kg, [...] D deficiency Confirmed Active 1neos 2documented at [facility];referred repair 3Confirmed by second opinion consultation [...] Team Personnel Name: Ada Austin NP Position: [facility] PCO Associate Professional Member Role: PCP Address: Address: [address] [place] [address]- [place] Name: Jono Hanna MD Position: [facility] Cardiology MD Member Role: Lifetime Consulting Physician Address: Address: [address] [place] [address] [place] [address]- Name: Juany Booth RN Position: S RN Member Role: Primary Care Nurse Name: Joey Tan RN Position: S RN Member Role: Primary Care Nurse Name: Tami Lucas RN Position: S RN Member Role: Primary Care Nurse Care Team Related Persons Name: TONY SAMSON Address: home [address] [place] [address] Name: MINDI BRENNAN Address: home [address] [place] [address]
--- OUTSIDE RECORDS SUMMARY | 2023-06-29 02:59 | XMS_ITS | Continuity of Care Document ---
Author Name Unknown Organization [facility] Josh lt Address [address] [place] [address]- Care Team Providers Care Microscopist Name Role Phone Geovanna SUPERVISOR COMPRESSED YEAST, Ada Desai Primary Care Physician [phone] Encounter [facility] Date(s): 04/18/22 - 04/25/22 [facility] Adult [address] [place] [address]- Encounter Diagnosis Physical exam(Discharge Diagnosis) - 04/13/22 Ascending aortic aneurysm stable 4cm 2021(Discharge Diagnosis) - 04/13/22 Paroxysmal A-fib catheter ablation 2011(Discharge Diagnosis) - 04/13/22 Current use of parts counterman anticoagulation/advised medic alert(Discharge Diagnosis) - 04/13/22 Impaired fasting glucose(Discharge Diagnosis) - 04/13/22 Obstructive sleep apnea syndrome ahi10.08/2020(Discharge Diagnosis) - 04/13/22 Status post patch closure of ASD(Discharge Diagnosis) - 04/13/22 Lung nodule PET 2019 /no chng ct angio 2008/2021(Discharge Diagnosis) - 04/13/22 Vitamin D deficiency(Discharge Diagnosis) - 04/13/22 IBS [Irritable bowel syndrome](Discharge Diagnosis) - 04/13/22 Mitral valve insufficiency(Discharge Diagnosis) - 04/13/22 Hearing loss in right ear/prior sx ear drum(Discharge Diagnosis) - 04/18/22 Major depression, recurrent, full remission(Discharge Diagnosis) - 04/18/22 Severe obesity(Discharge Diagnosis) - 04/18/22 Attending Physician: Miroslava CURTIS, Foreign [place]son Allergies, Adverse Reactions, Alerts No Known Allergies Immunizations Given and Recorded Vaccine Date Status Refusal Reason SARS-CoV-2 mRNA ([id number]) vax 1 04/18/22 Given SARS-CoV-2 (COVID-19) mRNA [...] (oldterm) 04/30/08 Give n 1Result Comment: [facility]-[id number] 2Result Comment: [facility]-[id number] 3Result Comment: [06/12/2018] [facility]-[id number] 4Result Comment: [06/26/2013] ORDERRED BY FOREIGN ACEVEDO MD 5Admin Note: historical data 6Admin Note: [place] VIS [id number] given 7Result Comment: error 8Admin Note: h1n1 also 9Result Comment: LOT #[id number]; PREVIOUSLY COMPLETED INJECTION HAD NOT BEEN GIVEN. 10Admin Note: given in clinic Medications amiodarone 200 mg oral tablet 200 mg, 1, tablet, By Mouth, Daily, # 30 tablet, Refills 6, Tot. Refills 6, Maintenance, 03/28/22 12:22:00 EDT, Route to Pharmacy Electronically, [facility]/pharmacy #[id number], 177, cm, 02/18/22 10:35:00 EDT, Height, 115.9, kg, 02/18/22 10:29:00 EDT, Dry Weight Start Date: 03/28/22 Stop Date: 10/24/22 Status: Ordered dicyclomine 20 mg oral tablet 1 tablet, By Mouth, 4 times a day, PRN NEEDED, # 360 tablet, 1 Refills, [facility], 177, cm, 08/05/21 11:04:00 EST, Height Start [...] # 180 tablet, 3 Refills, [facility], 177, cm, 02/18/22 10:35:00 EDT, Height, 115.9, kg, 02/18/22 10:29:00 EDT, Dry Weight Start Date: 03/01/22 Status: Ordered Toprol XL 50 mg oral tablet, extended release 50 mg, 1, tablet, By Mouth, Daily, # 30 tablet, Refills 11, Tot. Refills 11, Maintenance, 08/26/21 14:15:00 EST, Route to Pharmacy Electronically, [facility]/pharmacy #[id number], Partial fill upon patient request if the prescription is for a schedule II opioid Start Date: 08/26/21 Status: Ordered Vitamin D3 1000 intl units oral tablet 1 tablet, By Mouth, Daily, # 90 tablet, 0 Refills, [facility], 177, cm, 02/18/22 10:35:00 EDT,Height, 115.9, kg, [...] 11/08/20 Active Insomnia(Confirmed) Active Current use of parts counterman anticoagulation/advised medic alert(Confirmed) Active Depression, major(Confirmed) Active [...] Vitamin D deficiency(Confirmed) Active 1neos 2documented at [facility];referred repair 3Confirmed by second [...] Effective Dates Health Status Clinical Service Informant Physical exam Discharge Diagnosis 04/13/22 Ascending aortic aneurysm stable 4cm 2021 Discharge Diagnosis 04/13/22 Paroxysmal A-fib catheter ablation 2011 Discharge Diagnosis 04/13/22 Current use of parts counterman anticoagulation/adv ised medic alert Discharge Diagnosis 04/13/22 Impaired fasting glucose Discharge Diagnosis 04/13/22 Obstructive sleep apnea syndrome ahi10.08/2020 Discharge Diagnosis 04/13/22 Status post patch closure of ASD Discharge Diagnosis 04/13/22 Lung nodule PET 2019 /no chng ct angio 2021 Discharge Diagnosis 04/13/22 Vitamin D deficiency Discharge Diagnosis 04/13/22 IBS [Irritable bowel syndrome] Discharge Diagnosis 04/13/22 Mitral valve insufficiency Discharge Diagnosis 04/13/22 Hearing loss in right ear/prior sx ear drum Discharge Diagnosis 04/18/22 Major depression, recurrent, full remission Discharge Diagnosis 04/18/22 Severe obesity Discharge Diagnosis 04/18/22 Vital Signs Most recent to oldest [Reference Range]: 1 Height 177 cm (04/18/22 11:07 AM) Weight 125.5 kg (04/18/22 11:07 AM) Oxygen Saturation [94-100 %] 98 % (04/18/22 11:07 AM) Pulse Rate [55-90 bpm] 72 bpm (04/18/22 11:07 AM) Body Mass Index [18.5-24.99] 40.06 *>HHI* (04/18/22 11:07 AM) Blood Pressure [90-138/55-84 mm Hg] 126/ 83mm Hg (04/18/22 11:07 AM) Respiratory Rate [16-30 br/min] 16 br/mi n (04/18/22 11:07 AM) Temperature [96.8-100.4 DegF] 98.0 DegF (04/18/22 11:07 AM) Mode of Delivery (Oxygen) Room air (04/18/22 11:07 AM) Blood pressure sites Arm, left (04/18/22 11:07 AM) Temperature Route Oral (04/18/22 11:07 AM) Weight Obtained Via Standing scale (04/18/22 11:07 AM) Social History Social History Type Response Smoking Status Never smoker; Tobacc o user in household: No entered on: 01/17/17 Sex Care Team Personnel Name: Ada Austin NP Address: [address] [place] [id number] [[email or web address]]
--- OUTSIDE RECORDS SUMMARY | 2023-06-29 02:59 | XMS_ITS | Continuity of Care Document ---
Author Name Unknown Organization [facility] Herminio Josh lt Address [address] [place] [address]- Care Team Providers Care Agriscience Technology Instructor Name Role Phone Jeremiah Aguirre DO Primary Care Physician Encounter [facility] Date(s): 04/24/23 - 05/24/23 [facility] [place] operated by [facility] [address] [place] [address]- Encounter Diagnosis Ascending aortic aneurysm stable 4cm 2020/stable 2021(Discharge Diagnosis) - 05/08/23 Lung nodule PET 2019 /no chng ct angio 2008/stable 2021(Discharge Diagnosis) - 05/08/23 Allergies, Adverse Reactions, Alerts No Known Allergies Immunizations Given and Recorded Vaccine Date Status Refusal Reason SARS-CoV-2 mRNA (mnijbml-ahjy-sloxg) vax 1 04/18/22 Given SARS-CoV-2 (COVID-19) mRNA [...] Pertussis (oldterm) 04/30/08 Give n 1Result Comment: [facility]-[id number] 2Result Comment: [facility]-[id number] 3Result Comment: [06/12/2018] [facility]-[id number] 4Result Comment: [06/26/2013] ORDERRED BY GRAYSON ACEVEDO MD 5Admin Note: historical data 6Admin Note: [place] [facility] [id number] given 7Admin Note: h1n1 also 8Result Comment: LOT #[id number]; PREVIOUSLY COMPLETED INJECTION HAD NOT BEEN GIVEN. 9Admin Note: given in clinic Medications amiodarone 200 mg oral tablet 200 mg, 1, tablet, By Mouth, Daily, # 30 tablet, Refills 6, Tot. Refills 6, Maintenance, 06/22/22 17:21:00 EDT, Route to Pharmacy Electronically, [facility]/pharmacy #[id number], 178, cm, 06/16/22 11:19:00 EDT, Height, 118, kg, 05/13/22 6:24:00 EDT, Dry Weight Start Date: 06/22/22 Stop Date: 01/18/23 Status: Ordered amiodarone 200 mg oral tablet See Instructions, TAKE 1 TABLET BY MOUTH EVERY DAY, # 90 tablet, Refills 3, Maintenance, 11/25/22 7:37:00 EDT, Instructions Replace Required Details, Route to Pharmacy Electronically, [facility] STORE [id number], 178, cm, 06/16/22 11:19:00 EDT, Height, 118, kg, 0... Start Date: 11/25/22 Status: Ordered buPROPion 150 mg/24 hours (XL) oral tablet, extended release 1 tablet, By Mouth, Every 24 hours, # 90 tablet, 1 Refills, Maintenance, 07/07/22 19:24:00 EST, [facility], 90, TAKE 1 TABLET BY MOUTH EVERY 24 HOURS, 178, cm, 06/16/22 11:19:00 EDT, Height, 118, kg, 05/13/22 6:24:00 EDT, Dry Weight Start Date: 07/07/22 Status: Ordered dicyclomine 20 mg oral tablet 1 tablet, By Mouth, 4 times a day, PRN NEEDED, # 360 tablet, 1 Refills, 04/25/23 13:24:00 EDT, [facility]/pharmacy #[id number], 178, cm, 02/02/23 15:13:00 EDT, Height, 118, kg, 05/13/22 6:24:00 EDT, Dry Weight Start Date: 04/25/23 Status: Ordered Eliquis 5 mg oral tablet 1 tablet = 5 mg, By Mouth, 2 times a day, for 90 days, # 180 tablet, 3 Refills, Physician Stop 03/18/24 11:59:00 EDT, 03/24/23 11:59:00 EDT Start Date: 03/24/23 Stop Date: 03/18/24 Status: Ordered omeprazole 20 mg oral enteric coated capsule 1 capsule, By Mouth, 2 times a day, # 60 capsule, 6 Refills, Maintenance, 04/25/23 12:06:00 EDT, [facility]/pharmacy #[id number], 178, cm, 02/02/23 15:13:00 EDT, Height, 118, kg, 05/13/22 6:24:00 EDT, Dry Weight Start Date: 04/25/23 Status: Ordered Toprol XL 50 mg oral tablet, extended release 50 mg, 1, tablet, By Mouth, Daily, # 30 tablet, Refills 11, Tot. Refills 11, Maintenance, 09/23/22 8:02:00 EST, Route to Pharmacy Electronically, [facility]/pharmacy #[id number], 178, cm, 06/16/22 11:19:00 EDT, Height, 118, kg, 05/13/22 6:24:00 EDT, Dry Weight Start Date: 09/23/22 Status: Ordered Vitamin D3 1000 intl units oral tablet 1 tablet, By Mouth, Daily, # 90 tablet, 0 Refills, [facility] STORE 65953, 177, cm, 02/18/22 10:35:00 EDT,Height, 115.9, kg, 02/18/22 10:29:00 EDT, Dry Weight Start Date: 04/01/22 Status: Ordered Problem List Condition Confirmation Course Effective Dates Status H ealth Status Informant Ascending aortic aneurysm stable 4cm 2020/2021 Confirmed 12/4/19 Active Anxiety Confirmed 03/13/08 Active Traumatic arthritis of right foot 1 Confirmed Active Atrial septal defect, secundum 2 Confirmed 08/24/09 Active Cholesteatoma Confirmed Active Hearing loss in right ear/prior sx ear drum Confirmed Active IBS [Irritable bowel syndrome] 3, 4, 5 Confirmed Active Impaired fasting glucose Confirmed 11/08/20 Active Current use of [facility] antico[facility]/advi sed medic alert Confirmed Active Mitral valve insufficiency 6, 7 Confirmed Active Myofascial pain 8 Confirmed Active Lung nodule PET 2019 /no chng ct angio 2021 Confirmed 10/24/19 Active Obstructive sleep apnea syndrome ahi10.08/2020 9, 10 Confirmed Active Paroxysmal A-fib catheter ablation 2011 11, 12, 13, 14, 15, 16 Confirmed Active Status post patch closure of ASD Confirmed Active Depression, major, recurrent, in remission Confirmed Active Severe obesity (BMI 35.0-39.9) with comorbidity Confirmed Active Vitamin D deficiency Confirmed Active 1neos 2documented at [facility];referred repair 3Confirmed by second opinion consultation [...] Dates Health Status Cl inical Service Informant Ascending aortic aneurysm stable 4cm 2020/2021 Discharge Diagnosis 05/08/23 Lung nodule PET 2019 /no chng ct angio 2021 Discharge Diagnosis 05/08/23 Social History Social History Type Response Smoking Status Never smoker; Tobacc o user in household: No entered on: 01/17/17 Sex Patient Care team information Care Team Personnel Name: Ada Austin NP Position: [facility] PCO Associate Professional Member Role: Lifetime Consulting Provider Address: Address: [address] [place] [address]- Name: Jacques CURTIS, Jono Holman Position: [facility] Cardiology MD Member Role: Lifetime Consulting Physician Address: Address: [address], [address] [place] [address] [place] [address]- [place] Name: Juany Booth RN Position: S RN Member Role: Primary Care Nurse Name: Joey Tan RN Position: S RN Member Role: Primary Care Nurse Name: Jeremiah Aguirre DO Position: S Physician - Primary Care Member Role: PCP Address: Address: [address] [place] [address]- Name: Tami Lucas RN Position: S RN Member Role: Primary Care Nurse Care Team Related Persons Name: TONY SAMSON Address: home [address] [place] [address] Name: MINDI BRENNAN Address: home [address] [place] [address]
--- OUTSIDE RECORDS SUMMARY | 2023-06-29 02:59 | XMS_ITS | Continuity of Care Document ---
Author Name Unknown Organization [facility] Address [address] [place] [address]- Care Team Providers Care Puller Machine Name Role Phone Geovanna Ada CEVALLOS Primary Care Physician Encounter [facility] [place] Date(s): 12/12/22 - 01/11/23 [facility] [address] [place] [address]- Attending Physician: Corie Jeronimo Admitting Physician: AdmCorie martinez Referring Physician: Admtr ArAsael Allergies, Adverse Reactions, Alerts No Known Allergies Immunizations Given and Recorded Vaccine Date Status Refusal Reason SARS-CoV-2 mRNA (iidizns-czut-gpwik) vax 1 04/18/22 Given SARS-CoV-2 (COVID-19) mRNA [...] Pertussis (oldterm) 04/30/08 Give n 1Result Comment: [facility]-[id number] 2Result Comment: [facility]-[id number] 3Result Comment: [06/12/2018] [facility]-[id number] 4Result Comment: [06/26/2013] ORDERRED BY GRAYSON ACEVEDO MD 5Admin Note: historical data 6Admin Note: [facility] [place] [id number] given 7Result Comment: error 8Admin Note: h1n1 also 9Result Comment: LOT #[id number]; PREVIOUSLY COMPLETED INJECTION HAD NOT BEEN GIVEN. 10Admin Note: given in clinic Medications amiodarone 200 mg oral tablet 200 mg, 1, tablet, By Mouth, Daily, # 30 tablet, Refills 6, Tot. Refills 6, Maintenance, 06/22/22 17:21:00 EDT, Route to Pharmacy Electronically, [facility]/pharmacy #[id number], 178, cm, 06/16/22 11:19:00 EDT, Height, 118, kg, 05/13/22 6:24:00 EDT, Dry Weight Start Date: 06/22/22 Stop Date: 01/18/23 Status: Ordered amiodarone 200 mg oral tablet See Instructions, TAKE 1 TABLET BY MOUTH EVERY DAY, # 90 tablet, Refills 3, Maintenance, 11/25/22 7:37:00 EDT, Instructions Replace Required Details, Route to Pharmacy Electronically, [facility] STORE 05150, 178, cm, 06/16/22 11:19:00 EDT, Height, 118, kg, 0... Start Date: 11/25/22 Status: Ordered buPROPion 150 mg/24 hours (XL) oral tablet, extended release 1 tablet, By Mouth, Every 24 hours, # 90 tablet, 1 Refills, Maintenance, 07/07/22 19:24:00 EST, [facility], 90, TAKE 1 TABLET BY MOUTH EVERY 24 HOURS, 178, cm, 06/16/22 11:19:00 EDT, Height, 118, kg, 05/13/22 6:24:00 EDT, Dry Weight Start Date: 07/07/22 Status: Ordered dicyclomine 20 mg oral tablet 1 tablet, By Mouth, 4 times a day, PRN NEEDED, # 360 tablet, 1 Refills, [facility], 177, cm, 08/05/21 11:04:00 EST, Height Start Date: 01/02/22 Status: Ordered Eliquis 5 mg oral tablet See Instructions, TAKE 1 TABLET BY MOUTH TWICE A DAY FOR 30 DAYS, # 180 tablet, 3 Refills, [facility], 177, cm, 02/18/22 10:35:00 EDT, Height, 115.9, kg, 02/18/22 10:29:00 EDT, Dry Weight Start Date: 03/01/22 Status: Ordered omeprazole 20 mg oral enteric coated capsule 1 capsule, By Mouth, 2 times a day, # 60 capsule, 0 Refills, Maintenance, 12/25/22 16:25:00 EDT, [facility], 178, cm, 06/16/22 11:19:00 EDT, Height, 118, kg, 05/13/22 6:24:00 EDT, Dry Weight Start Date: 12/25/22 Status: Ordered Toprol XL 50 mg oral tablet, extended release 50 mg, 1, tablet, By Mouth, Daily, # 30 tablet, Refills 11, Tot. Refills 11, Maintenance, 09/23/22 8:02:00 EST, Route to Pharmacy Electronically, [facility]/pharmacy #[id number], 178, cm, 06/16/22 11:19:00 EDT, Height, 118, kg, 05/13/22 6:24:00 EDT, Dry Weight Start Date: 09/23/22 Status: Ordered Vitamin D3 1000 intl units oral tablet 1 tablet, By Mouth, Daily, # 90 tablet, 0 Refills, [facility], 177, cm, 02/18/22 10:35:00 EDT,Height, 115.9, kg, [...] D deficiency Confirmed Active 1neos 2documented at [facility];referred repair 3Confirmed by second opinion consultation [...] Team Personnel Name: Ada Austin NP Position: [facility] PCO Associate Professional Member Role: PCP Address: Address: [address] [place] [address]- [place] Name: Jono Hanna MD Position: [facility] Cardiology MD Member Role: Lifetime Consulting Physician Address: Address: [address] [place] [address] [place] [address]- [place] Name: Juany Booth RN Position: S RN Member Role: Primary Care Nurse Name: Joey Tan RN Position: S RN Member Role: Primary Care Nurse Name: Tami Lucas RN Position: S RN Member Role: Primary Care Nurse Care Team Related Persons Name: TONY SAMSON Address: home [address] [place] [id number] Name: MINDI BRENNAN Address: home [address] [place] [address] [place]
--- OUTSIDE RECORDS SUMMARY | 2023-06-29 02:59 | XMS_ITS | Continuity of Care Document ---
Author Name Unknown Organization [facility] Herminio Josh lt Address [address] [place] [address]- Care Team Providers Care Mosaicist Name Role Phone Jeremiah Aguirre DO [id number] [address] [place] [address]- Encounter Diagnosis Acute sinusitis(Discharge Diagnosis) - 06/06/23 IBS [Irritable bowel syndrome](Discharge Diagnosis) - 06/06/23 Attending Physician: Not on Staff, Attending MD Allergies, Adverse Reactions, Alerts No Known Allergies Immunizations Given and Recorded Vaccine Date Status Refusal Reason SARS-CoV-2 mRNA (zobodex-hdbm-okjgt) vax 1 04/18/22 Given SARS-CoV-2 (COVID-19) mRNA [...] Give n 1Result Comment: [facility]-[id number] 2Result Comment: [facility]-[id number] 3Result Comment: [06/12/2018] [facility]-[id number] 4Result Comment: [06/26/2013] ORDERRED BY GRAYSON ACEVEDO MD 5Admin Note: historical data 6Admin Note: [employer] [facility] [place] VIS [id number] given 7Admin Note: h1n1 also 8Result Comment: LOT #[id number]; PREVIOUSLY COMPLETED INJECTION HAD NOT BEEN GIVEN. 9Admin Note: given in clinic Medications Azithromycin 5 Day Dose Pack 250 mg oral tablet 1 pack/packet, By Mouth, Once, as directed on package labeling, # 6 tablet, 0 Refills, Soft Stop, 06/06/23 11:42:00 EDT, Tablet, [id number], 178, cm, 06/06/23 11:24:00 EDT, Height, 118, kg, 05/13/22 6:24:00 EDT, Dry Weight Start Date: 06/06/23 Status: Ordered buPROPion 150 mg/24 hours (XL) oral tablet, extended release 1 tablet, By Mouth, Every 24 hours, # 90 tablet, 0 Refills, Maintenance, 06/06/23 11:42:00 EDT, [id number], 90, 1 tablet By Mouth Every 24 hours, 178, cm, 06/06/23 11:24:00 EDT, Height, 118, kg, 05/13/22 6:24:00 EDT, Dry Weight Start Date: 06/06/23 Status: Ordered dicyclomine 20 mg oral tablet 1 tablet, By Mouth, 4 times a day, PRN NEEDED, # 360 tablet, 1 Refills, 04/25/23 13:24:00 EDT, [id number], 178, cm, 02/02/23 15:13:00 EDT, Height, 118, kg, 05/13/22 6:24:00 EDT, Dry Weight Start Date: 04/25/23 Status: Ordered Eliquis 5 mg oral tablet 1 tablet = 5 mg, By Mouth, 2 times a day, for 90 days, # 180 tablet, 3 Refills, Physician Stop 03/18/24 11:59:00 EDT, 03/24/23 11:59:00 EDT Start Date: 03/24/23 Stop Date: 03/18/24 Status: Ordered Flonase Allergy Relief 50 mcg/inh nasal spray 1 sprays, Nares, Both, Daily, # 16 Gm, 0 Refills, Maintenance, 06/06/23 11:43:00 EDT, [facility]/pharmacy #[id number], 178, cm, 06/06/23 11:24:00 EDT, Height, 118, kg, 05/13/22 6:24:00 EDT, Dry Weight Start Date: 06/06/23 Status: Ordered omeprazole 20 mg oral enteric coated capsule 1 capsule, By Mouth, 2 times a day, # 60 capsule, 6 Refills, Maintenance, 04/25/23 12:06:00 EDT, [facility]/pharmacy #[id number], 178, cm, 02/02/23 15:13:00 EDT, Height, 118, kg, 05/13/22 6:24:00 EDT, Dry Weight Start Date: 04/25/23 Status: Ordered Toprol XL 50 mg oral tablet, extended release 50 mg, 1, tablet, By Mouth, Daily, # 30 tablet, Refills 11, Tot. Refills 11, Maintenance, 09/23/22 8:02:00 EST, Route to Pharmacy Electronically, [facility]/pharmacy #[id number], 178, cm, 06/16/22 11:19:00 EDT, Height, 118, kg, 05/13/22 6:24:00 EDT, Dry Weight Start Date: 09/23/22 Status: Ordered Vitamin D3 1000 intl units oral tablet 1 tablet, By Mouth, Daily, # 90 tablet, 0 Refills, [facility] ST[facility] 07109, 177, cm, 02/18/22 10:35:00 EDT,Height, 115.9, kg, 02/18/22 10:29:00 EDT, Dry Weight Start Date: 04/01/22 Status: Ordered Problem List Condition Confirmation Course Effective Dates Status H ealth Status Informant Ascending aortic aneurysm stable 4cm 2020/2022 Confirmed 07/31/19 Active Anxiety Confirmed 03/13/08 Active Traumatic arthritis of right foot 1 Confirmed Active Atrial septal defect, secundum 2 Confirmed 08/24/09 Active Cholesteatoma Confirmed Active Hearing loss in right ear/prior sx ear drum Confirmed Active IBS [Irritable bowel syndrome] 3, 4, 5 Confirmed Active Impaired fasting glucose Confirmed 11/08/20 Active Current use of termite exterminator anticoagulation/advi sed medic alert Confirmed Active Mitral valve insufficiency 6, 7 Confirmed Active Myofascial pain 8 Confirmed Active Lung nodule PET 2019 /no chng ct angio 2008/2022 9 Confirmed 10/24/19 Active Obstructive sleep apnea syndrome ahi10.08/2020 10, 11 Confirmed Active Paroxysmal A-fib catheter ablation 2011 12, 13, 14, 15, 16, 17 Confirmed Active Status post patch closure of ASD Confirmed Active Depression, major, recurrent, in remission Confirmed Active Severe obesity (BMI 35.0-39.9) with comorbidity Confirmed Active Vitamin D deficiency Confirmed Active 1neos 2documented at [facility];referred repair 3Confirmed by second opinion consultation 4seering GI still 5Dr [place] 6no need 7antibiotic prophylaxis;reminded;is aware 8low back;sees spine sports 9Since its been stable for multiple years no further testing needed 10AHI 5.9 2008 study 11no significant issues per polysomnogram 12ablated 08-08 13May 07;echo EF 55% 14echo january 04 ef 55 % 15reduced EF 45% 16normal coronaries per angiography 17abnormal stress test; cardiac cath pending Diagnosis Diagnosis Type Effective Dates Health Status Cl inical Service Informant Acute sinusitis Discharge Diagnosis 06/06/23 IBS [Irritable bowel syndrome] Discharge Diagnosis 06/06/23 Vital Signs Most recent to oldest [Reference Range]: 1 Height 178 cm (06/06/23 11:24 AM) Weight 118.2 kg (06/06/23 11:24 AM) Oxygen Saturation [94-100 %] 95 % (06/06/23 11:24 AM) Pulse Rate [55-90 bpm] 56 bpm (06/06/23 11:24 AM) Body Mass Index [18.5-24.99 kg/m2] 37.31 kg/m2 *>HHI* (06/06/23 11:24 AM) Blood Pressure [90-138/55-84 mm Hg] 118/ 75mm Hg (06/06/23 11:24 AM) Temperature [96.8-100.4 DegF] 98.0 DegF (06/06/23 11:24 AM) Mode of Delivery (Oxygen) Room air (06/06/23 11:24 AM) Blood pressure sites Arm, left (06/06/23 11:24 AM) Temperature Route Oral (06/06/23 11:24 AM) Weight Obtained Via Standing scale (06/06/23 11:24 AM) Social History Social History Type Response Smoking Status Never smoker; Tobacc o user in household: No entered on: 01/17/17 Sex Patient Care team information Care Team Personnel Name: Geovanna CEVALLOS, Ada Desai Position: [facility] PCO Associate Professional Member Role: Lifetime Consulting Provider Address: Address: [address] [place] [id number] Name: Jono Hanna MD Position: [facility] Cardiology MD Member Role: Lifetime Consulting Physician Address: Address: [address] [place] [address] [facility] [place], [place] [address] Name: Juany Booth RN Position: [facility] RN Member Role: Primary Care Nurse Name: Joey Tan RN Position: S RN Member Role: Primary Care Nurse Name: Jeremiah Aguirre DO Position: [facility] Physician - Primary Care Member Role: PCP Address: Address: [address] [place] [address] Adult [place], [place] [address] Name: Tami Lucas RN Position: [facility] RN Member Role: Primary Care Nurse Care Team Related Persons Name: TONY SAMSON Address: home [address] [place] [address] Name: MINDI BRENNAN Address: home [address] [place] [address] [place]
--- OUTSIDE RECORDS SUMMARY | 2023-06-29 02:59 | XMS_ITS | Continuity of Care Document ---
Author Name Unknown Organization [facility] Josh lt Address [address] [place] [address]- Care Team Providers Care Diesel Tractor Engine Mechanic Name Role Phone Miroslava CURTIS, Foreign Woodson Primary Care Physician Encounter [facility] Date(s): 01/26/21 - 02/25/21 [facility] [address] [place] [address]- Allergies, Adverse Reactions, Alerts Substance Reaction Severity [...] (oldterm) 04/30/08 Give n 1Result Comment: [06/12/2018] [facility]-[id number] 2Result Comment: [06/26/2013] ORDERRED BY FOREIGN ACEVEDO MD 3Admin Note: historical data 4Admin Note: [employer] [facility] [place] VIS [id number] given 5Result Comment: error 6Admin Note: h1n1 also 7Result Comment: LOT #[id number]; PREVIOUSLY COMPLETED INJECTION HAD NOT BEEN GIVEN. 8Admin Note: given in clinic Medications dicyclomine 20 mg oral tablet 1 tablet, By Mouth, 4 times a day, PRN NEEDED, # 360 tablet, 1 Refills, Maintenance, 02/02/21 7:03:00 EDT, [facility], 177, cm, 11/10/20 14:43:00 EDT, Height, 119.9, kg, 05/13/19 16:58:00 EDT, Dry Weight Start Date: 02/02/21 Status: Ordered duloxetine 30 mg oral enteric coated capsule 1 capsule = 30 mg, By Mouth, 2 times a day, # 60 each, 6 Refills, Maintenance, 11/18/20 16:47:00 EDT, [facility]/pharmacy #[id number], Partial fill upon patient request if the prescription is for a schedule II opioid drug., 177, cm, 11/10/20 14:43:00 EDT, Height,... Start Date: 11/18/20 Status: Ordered Eliquis 5 mg oral tablet 1 tablet = 5 mg, By Mouth, 2 times a day, # 60 tablet, 11 Refills, Maintenance, 01/28/21 12:28:00 EDT, Tablet, [facility]/pharmacy #[id number], 177, cm, 11/10/20 14:43:00 EDT, Height, [...] 02/01/21 8:19:00 EDT, Route to Pharmacy Electronically, [facility]/pharmacy #[id number], 177, cm, 11/10/20 14:43:00 EDT, Height, 119.9, kg, 05/13/19 16:58:00 EDT, Dry Weight Start Date: 02/01/21 Stop Date: 01/27/22 Status: Ordered Vitamin D3 1000 intl units oral tablet 1 tablet, By Mouth, Daily, # 30 tablet, 5 Refills, Maintenance, 12/03/20 17:56:00 EDT, [facility] 25131, 177, cm, 11/10/20 14:43:00 EDT, Height, 119.9, [...] 11/08/20 Active Insomnia(Confirmed) Active Current use of nursing home anticoagulation(Confirmed) Active Depression, major(Confirmed) Active Mitral valve insufficiency(C onfirmed) 8, 9 Active Myofascial pain(Confirmed) 10 Active Lung nodule PET 2019 /no vch ng ct angio 2008(Confirmed) 10/24/19 Active Obstructive sleep apnea synd shaji ahi 5.9(Confirmed) 11, 12 Active Paroxysmal A-fib(Confirmed) 13, 14, 15, 16, 17, 18 Active Status post patch closure of ASD(Confirmed) Active Vitamin D deficiency(Confirmed) Active 1neos 2documented at [facility];referred repair 3UNDEFINED, BIOPSY PENDING 4had [...]
--- OUTSIDE RECORDS SUMMARY | 2023-06-29 02:59 | XMS_ITS | Continuity of Care Document ---
Author Name Unknown Organization [facility] Address [address] [place] [address]- Care Team Providers Care Operations Logistics Analyst Name Role Phone Foreign [place] MD Primary Care Physician Encounter [facility] Date(s): 10/30/20 - 02/27/21 [facility] [address] [place] [address] Attending Physician: Beau Quijano MD Admitting Physician: [...] (oldterm) 04/30/08 Give n 1Result Comment: [06/12/2018] [facility]-[id number] 2Result Comment: [06/26/2013] ORDERRED BY FOREIGN [place] MD 3Admin Note: historical data 4Admin Note: [employer] [facility] [facility] [place] VIS [phone] given 5Result Comment: error 6Admin Note: h1n1 also 7Result Comment: LOT #[id number]; PREVIOUSLY COMPLETED INJECTION HAD NOT BEEN GIVEN. 8Admin Note: given in clinic Medications dicyclomine 20 mg oral tablet 1 tablet, By Mouth, 4 times a day, PRN NEEDED, # 360 tablet, 1 Refills, Maintenance, 02/02/21 7:03:00 EDT, [facility], 177, cm, 11/10/20 14:43:00 EDT, Height, 119.9, [...] 02/01/21 8:19:00 EDT, Route to Pharmacy Electronically, [facility]/pharmacy #[id number], 177, cm, 11/10/20 14:43:00 EDT, Height, 119.9, kg, 05/13/19 16:58:00 EDT, Dry Weight Start Date: 02/01/21 Stop Date: 01/27/22 Status: Ordered Vitamin D3 1000 intl units oral tablet 1 tablet, By Mouth, Daily, # 30 tablet, 5 Refills, Maintenance, 12/03/20 17:56:00 EDT, [facility], 177, cm, 11/10/20 14:43:00 EDT, Height, 119.9, [...] 11/08/20 Active Insomnia(Confirmed) Active Current use of predatory animal exterminator anticoagulation(Confirmed) Active Depression, major(Confirmed) Active Mitral valve insufficiency(C onfirmed) 8, 9 Active Myofascial pain(Confirmed) 10 Active Lung nodule PET 2019 /no vch ng ct angio 2008(Confirmed) 10/24/19 Active Obstructive sleep apnea synd shaji ahi 5.9(Confirmed) 11, 12 Active Paroxysmal A-fib(Confirmed) 13, 14, 15, 16, 17, 18 Active Status post patch closure of ASD(Confirmed) Active Vitamin D deficiency(Confirmed) Active 1neos 2documented at [facility];referred repair 3UNDEFINED, BIOPSY PENDING 4had EGD 5Confirmed [...]
--- OUTSIDE RECORDS SUMMARY | 2023-06-29 02:59 | XMS_ITS | Continuity of Care Document ---
Author Name Unknown Organization [facility] Josh lt Address [address] [place] [address]- Care Team Providers Care Java J2Ee Lead Name Role Phone Miroslava CURTIS, Foreign Woodson Primary Care Physician [facility] Date(s): 08/25/21 - 09/24/21 [facility] Adult [address] [place] [address]- Allergies, Adverse Reactions, Alerts No Known Allergies [...] Pertussis (oldterm) 04/30/08 Give n 1Result Comment: [facility]-[id number] 2Result Comment: [06/12/2018] [facility]-[id number] 3Result Comment: [06/26/2013] ORDERRED BY FOREIGN ACEVEDO MD 4Admin Note: historical data 5Admin Note: [employer] [facility] VIS [phone] given 6Result Comment: error 7Admin Note: h1n1 also 8Result Comment: LOT #[id number]; PREVIOUSLY COMPLETED INJECTION HAD NOT BEEN GIVEN. 9Admin Note: given in clinic Medications dicyclomine 20 mg oral tablet 1 tablet, By Mouth, 4 times a day, PRN NEEDED, # 360 tablet, 1 Refills, Maintenance, 02/02/21 7:03:00 EDT, [facility], 177, cm, 11/10/20 14:43:00 EDT, Height, 119.9, [...] capsule, 11 Refills, Maintenance, 05/05/20 9:56:00 EDT, [facility]/pharmacy #[id number], 177, cm, 09/27/19 8:18:00 EST, Height, 119.9, kg, 05/13/19 16:58:00 EDT, Dry Weight Start Date: 05/05/20 Stop Date: 04/30/21 Status: Ordered Toprol XL 50 mg oral tablet, extended release 50 mg, 1, tablet, By Mouth, Daily, # 30 tablet, Refills 11, Tot. Refills 11, Maintenance, 08/26/21 14:15:00 EST, Route to Pharmacy Electronically, [facility]/pharmacy #[id number], Partial fill upon patient request if the prescription is for a schedule II opioid . Start Date: 08/26/21 Status: Ordered Vitamin D3 1000 intl units oral tablet See Instructions, TAKE 1 TABLET BY MOUTH EVERY DAY, # 30 tablet, 2 Refills, [facility], 177, cm, 08/05/21 11:04:00 EST, Height Start [...] 11/08/20 Active Insomnia(Confirmed) Active Current use of skilled nursing anticoagulation(Confirmed) Active Depression, major(Confirmed) Active Mitral valve [...] Vitamin D deficiency(Confirmed) Active 1neos 2documented at [facility];referred repair 3had EGD 4Confirmed by second [...]
--- OUTSIDE RECORDS SUMMARY | 2023-06-29 02:59 | XMS_ITS | Continuity of Care Document ---
Author Name Unknown Organization [facility] Address [address] [place] [address]- Care Team Providers Care Nut Grader Name Role Phone Geovanna Ada CEVALLOS Primary Care Physician [phone] Encounter [facility] Date(s): 09/23/22 - 10/23/22 [facility] [address] [place] [address]- [place] Allergies, Adverse Reactions, Alerts No Known Allergies Immunizations Given and Recorded Vaccine Date Status Refusal Reason SARS-CoV-2 mRNA (uvzphuh-[id number]-akveb) vax 1 04/18/22 Given SARS-CoV-2 (COVID-19) mRNA [...] n 1Result Comment: [facility]-[id number] 2Result Comment: [facility]-[id number] 3Result Comment: [06/12/2018] [facility]-[id number] 4Result Comment: [06/26/2013] ORDERRED BY GRAYSON ACEVEDO MD 5Admin Note: historical data 6Admin Note: [employer] [facility] [facility] VIS [phone] given 7Result Comment: error 8Admin Note: h1n1 also 9Result Comment: LOT #[id number]; PREVIOUSLY COMPLETED INJECTION HAD NOT BEEN GIVEN. 10Admin Note: given in clinic Medications amiodarone 200 mg oral tablet 200 mg, 1, tablet, By Mouth, Daily, # 30 tablet, Refills 6, Tot. Refills 6, Maintenance, 06/22/22 17:21:00 EDT, Route to Pharmacy Electronically, [facility]/pharmacy #[id number], 178, cm, 06/16/22 11:19:00 EDT, Height, 118, kg, 05/13/22 6:24:00 EDT, Dry Weight Start Date: 06/22/22 Stop Date: 01/18/23 Status: Ordered buPROPion 150 mg/24 hours (XL) oral tablet, extended release 1 tablet, By Mouth, Every 24 hours, # 90 tablet, 1 Refills, Maintenance, 07/07/22 19:24:00 EST, [facility], 90, TAKE 1 TABLET BY MOUTH EVERY 24 HOURS, 178, cm, 06/16/22 11:19:00 EDT, Height, 118, kg, 05/13/22 6:24:00 EDT, Dry Weight Start Date: 07/07/22 Status: Ordered dicyclomine 20 mg oral tablet 1 tablet, By Mouth, 4 times a day, PRN NEEDED, # 360 tablet, 1 Refills, [facility], 177, cm, 08/05/21 11:04:00 EST, Height Start Date: 01/02/22 Status: Ordered Eliquis 5 mg oral tablet See Instructions, TAKE 1 TABLET BY MOUTH TWICE A DAY FOR 30 DAYS, # 180 tablet, 3 Refills, [facility] 0[facility], 177, cm, 02/18/22 10:35:00 EDT, Height, 115.9, kg, 02/18/22 10:29:00 EDT, Dry Weight Start Date: 03/01/22 Status: Ordered omeprazole 20 mg oral enteric coated capsule See Instructions, TAKE 1 CAPSULE BY MOUTH TWICE A DAY, # 60 capsule, 0 Refills, Maintenance, 10/23/22 14:13:00 EST, [facility], 178, cm, 06/16/22 11:19:00 EDT, Height, 118, kg, 05/13/22 6:24:00 EDT, Dry Weight Start Date: 10/23/22 Status: Ordered Toprol XL 50 mg oral tablet, extended release 50 mg, 1, tablet, By Mouth, Daily, # 30 tablet, Refills 11, Tot. Refills 11, Maintenance, 09/23/22 8:02:00 EST, Route to Pharmacy Electronically, [facility]/pharmacy #[id number], 178, cm, 06/16/22 11:19:00 EDT, Height, 118, kg, 05/13/22 6:24:00 EDT, Dry Weight Start Date: 09/23/22 Status: Ordered Vitamin D3 1000 intl units oral tablet 1 tablet, By Mouth, Daily, # 90 tablet, 0 Refills, [facility], 177, cm, 02/18/22 10:35:00 EDT,Height, 115.9, kg, [...] Active Insomnia Confirmed Active Current use of residential anticoagulation/advi sed medic alert Confirmed Active Depression, [...] D deficiency Confirmed Active 1neos 2documented at [facility];referred repair 3Confirmed by second opinion consultation 4seering [...] Team Personnel Name: Ada Austin NP Position: [facility] PCO Associate Professional Member Role: PCP Address: Address: [address] [place] [address]- Name: Jono Hanna MD Position: [facility] Cardiology MD Member Role: Lifetime Consulting Physician Address: Address: [address] [place] [address] [place] [address] Name: Juany Booth RN Position: S RN Member Role: Primary Care Nurse Name: Joey Tan RN Position: S RN Member Role: Primary Care Nurse Name: Tami Lucas RN Position: S RN Member Role: Primary Care Nurse Care Team Related Persons Name: TONY SAMSON Address: home [address] [place] [address] Name: MINDI BRENNAN Address: home [address] [place] [address] [place]
--- OUTSIDE RECORDS SUMMARY | 2023-06-29 02:59 | XMS_ITS | Continuity of Care Document ---
Author Name Unknown Organization [facility] Address [address] [place] [address]- Care Team Providers Care Pharmacy Director Name Role Phone Geovanna [place] CEVALLOS Primary Care Physician Encounter [facility] Date(s): 11/02/22 - 12/02/22 [facility] [address] [place] [address]- [place] Allergies, Adverse Reactions, Alerts No Known Allergies Immunizations Given and Recorded Vaccine Date Status Refusal Reason SARS-CoV-2 mRNA (rkkixwz-cdct-wuwby) vax 1 04/18/22 Given SARS-CoV-2 (COVID-19) mRNA [...] Pertussis (oldterm) 04/30/08 Give n 1Result Comment: [facility]-[id number] 2Result Comment: [facility]-[id number] 3Result Comment: [06/12/2018] [facility]-[id number] 4Result Comment: [06/26/2013] ORDERRED BY GRAYSON ACEVEDO MD 5Admin Note: historical data 6Admin Note: [employer] [facility] V[place] [phone] given 7Result Comment: error 8Admin Note: h1n1 also 9Result Comment: LOT #[id number]; PREVIOUSLY COMPLETED INJECTION HAD NOT BEEN GIVEN. 10Admin Note: given in clinic Medications amiodarone 200 mg oral tablet 200 mg, 1, tablet, By Mouth, Daily, # 30 tablet, Refills 6, Tot. Refills 6, Maintenance, 06/22/22 17:21:00 EDT, Route to Pharmacy Electronically, [facility]/pharmacy #[id number], 178, cm, 06/16/22 11:19:00 EDT, Height, 118, kg, 05/13/22 6:24:00 EDT, Dry Weight Start Date: 06/22/22 Stop Date: 01/18/23 Status: Ordered amiodarone 200 mg oral tablet See Instructions, TAKE 1 TABLET BY MOUTH EVERY DAY, # 90 tablet, Refills 3, Maintenance, 11/25/22 7:37:00 EDT, Instructions Replace Required Details, Route to Pharmacy Electronically, [facility], 178, cm, 06/16/22 11:19:00 EDT, Height, 118, kg, 0... Start Date: 11/25/22 Status: Ordered buPROPion 150 mg/24 hours (XL) oral tablet, extended release 1 tablet, By Mouth, Every 24 hours, # 90 tablet, 1 Refills, Maintenance, 07/07/22 19:24:00 EST, [facility], 90, TAKE 1 TABLET BY MOUTH EVERY 24 HOURS, 178, cm, 06/16/22 11:19:00 EDT, Height, 118, kg, 05/13/22 6:24:00 EDT, Dry Weight Start Date: 07/07/22 Status: Ordered dicyclomine 20 mg oral tablet 1 tablet, By Mouth, 4 times a day, PRN NEEDED, # 360 tablet, 1 Refills, [facility], 177, cm, 08/05/21 11:04:00 EST, Height Start Date: 01/02/22 Status: Ordered Eliquis 5 mg oral tablet See Instructions, TAKE 1 TABLET BY MOUTH TWICE A DAY FOR 30 DAYS, # 180 tablet, 3 Refills, [facility] 80[facility], 177, cm, 02/18/22 10:35:00 EDT, Height, 115.9, kg, 02/18/22 10:29:00 EDT, Dry Weight Start Date: 03/01/22 Status: Ordered omeprazole 20 mg oral enteric coated capsule 1 capsule, By Mouth, 2 times a day, # 60 capsule, 0 Refills, Maintenance, 11/22/22 16:12:00 EDT, [facility], 178, cm, 06/16/22 11:19:00 EDT, Height, 118, kg, 05/13/22 6:24:00 EDT, Dry Weight Start Date: 11/22/22 Status: Ordered Toprol XL 50 mg oral tablet, extended release 50 mg, 1, tablet, By Mouth, Daily, # 30 tablet, Refills 11, Tot. Refills 11, Maintenance, 09/23/22 8:02:00 EST, Route to Pharmacy Electronically, [facility]/pharmacy #[id number], 178, cm, 06/16/22 11:19:00 EDT, Height, 118, kg, 05/13/22 6:24:00 EDT, Dry Weight Start Date: 09/23/22 Status: Ordered Vitamin D3 1000 intl units oral tablet 1 tablet, By Mouth, Daily, # 90 tablet, 0 Refills, [facility], 177, cm, 02/18/22 10:35:00 EDT,Height, 115.9, kg, [...] Confirmed Active 1neos 2documented at [facility];referred repair 3Confirmed by second opinion consultation [...] Team Personnel Name: Ada Austin NP Position: [facility] PCO Associate Professional Member Role: PCP Address: Address: [address] [place] [address]- Name: Jono Hanna MD Position: [facility] Cardiology MD Member Role: Lifetime Consulting Physician Address: Address: [address] [place] [address] [facility] [place] [address]- Name: Juany Booth RN Position: S RN Member Role: Primary Care Nurse Name: Joey Tan RN Position: S RN Member Role: Primary Care Nurse Name: Tami Lucas RN Position: S RN Member Role: Primary Care Nurse Care Team Related Persons Name: IFRAHTONY Aj Address: home [address] [place] [address] Name: MINDI BRENNAN Address: home [address] [place] [address] [place]
--- OUTSIDE RECORDS SUMMARY | 2023-06-29 02:59 | XMS_ITS | Continuity of Care Document ---
Author Name Unknown Organization [facility] Address [address] [place] [address]- Care Team Providers Care Emergency Department Manager Name Role Phone Geovanna [place] CEVALLOS Primary Care Physician Encounter [facility] Date(s): 05/25/22 - 06/24/22 [facility] [address] [place] [address]- [place] Allergies, Adverse Reactions, Alerts No Known Allergies Immunizations Given and Recorded Vaccine Date Status Refusal Reason SARS-CoV-2 mRNA (ymyapar-[id number]-gcuqt) vax 1 04/18/22 Given SARS-CoV-2 (COVID-19) mRNA [...] Pertussis (oldterm) 04/30/08 Give n 1Result Comment: [facility]-[id number] 2Result Comment: [facility]-[id number] 3Result Comment: [06/12/2018] [facility]-[id number] 4Result Comment: [06/26/2013] ORDERRED BY GRAYSON ACEVEDO MD 5Admin Note: historical data 6Admin Note: [facility] [facility] VIS [phone] given 7Result Comment: error 8Admin Note: h1n1 also 9Result Comment: LOT #[id number]; PREVIOUSLY COMPLETED INJECTION HAD NOT BEEN GIVEN. 10Admin Note: given in clinic Medications amiodarone 200 mg oral tablet 200 mg, 1, tablet, By Mouth, Daily, # 30 tablet, Refills 6, Tot. Refills 6, Maintenance, 06/22/22 17:21:00 EDT, Route to Pharmacy Electronically, [facility]/pharmacy #[id number], 178, cm, 06/16/22 11:19:00 EDT, Height, 118, kg, 05/13/22 6:24:00 EDT, Dry Weight Start Date: 06/22/22 Stop Date: 01/18/23 Status: Ordered dicyclomine 20 mg oral tablet 1 tablet, By Mouth, 4 times a day, PRN NEEDED, # 360 tablet, 1 Refills, [facility], 177, cm, 08/05/21 11:04:00 EST, Height Start Date: 01/02/22 Status: Ordered Eliquis 5 mg oral tablet See Instructions, TAKE 1 TABLET BY MOUTH TWICE A DAY FOR 30 DAYS, # 180 tablet, 3 Refills, [facility] 617[facility], 177, cm, 02/18/22 10:35:00 EDT, Height, 115.9, kg, 02/18/22 10:29:00 EDT, Dry Weight Start Date: 03/01/22 Status: Ordered omeprazole 20 mg oral delayed release tablet 1 tablet = 20 mg, By Mouth, 2 times a day, # 60 tablet, 0 Refills, Maintenance, 05/13/22 17:23:00 EDT, EC Tablet, [facility]/pharmacy #[id number], Partial fill upon patient request if the prescription is for a schedule II opioid drug., 177, cm, 05/13/22 13:26:00 E... Start Date: 05/13/22 Stop Date: 06/12/22 Status: Ordered Toprol XL 50 mg oral tablet, extended release 50 mg, 1, tablet, By Mouth, Daily, # 30 tablet, Refills 11, Tot. Refills 11, Maintenance, 08/26/21 14:15:00 EST, Route to Pharmacy Electronically, [facility]/pharmacy #[id number], Partial fill upon patient request if the prescription is for a schedule II opioid . Start Date: 08/26/21 Status: Ordered Vitamin D3 1000 intl units oral tablet 1 tablet, By Mouth, Daily, # 90 tablet, 0 Refills, [facility] 99426, 177, cm, 02/18/22 10:35:00 EDT,Height, 115.9, kg, [...] Active Insomnia Confirmed Active Current use of intermediate card tender anticoagulation/advi sed medic alert Confirmed Active Depression, [...] D deficiency Confirmed Active 1neos 2documented at [facility];referred repair 3Confirmed by second opinion consultation 4seering [...] Name: Geovanna CEVALLOS, Ada Desai Address: Address: [address] [place] [id number]
--- OUTSIDE RECORDS SUMMARY | 2023-06-29 02:59 | XMS_ITS | Continuity of Care Document ---
Author Name Unknown Organization [facility] Josh lt Address [address] [place] [address]- Care Team Providers Care Elevator Repair Mechanic Name Role Phone Foreign [place] MD Primary Care Physician Encounter [facility] Date(s): 11/16/20 - 11/23/20 [facility] Adult [address] [place] [address]- Attending Physician: Foreign [place] MD Allergies, Adverse [...] (oldterm) 04/30/08 Give n 1Result Comment: [06/12/2018] [facility]-[id number] 2Result Comment: [06/26/2013] ORDERRED BY FOREIGN [place] MD 3Admin Note: historical data 4Admin Note: [employer] [facility] VIS [phone] given 5Result Comment: error 6Admin Note: h1n1 also 7Result Comment: LOT #[id number]; PREVIOUSLY COMPLETED INJECTION HAD NOT BEEN GIVEN. 8Admin Note: given in clinic Medications dicyclomine 20 mg oral tablet 1 tablet, By Mouth, 4 times a day, PRN NEEDED, # 360 tablet, 1 Refills, Maintenance, 04/02/20 6:38:00 EDT, [facility], 177, cm, 09/27/19 8:18:00 EST, Height, 119.9, [...] EDT, Route to Pharmacy Electronically, [facility]/pharmacy #[id number], 177, cm, 09/27/19 8:18:00 EST, Height, 119.9, kg, 05/13/19 16:58:00 EDT, Dry Weight Start Date: 01/14/20 Stop Date: 01/08/21 Status: Ordered Vitamin D3 1000 intl units oral tablet 1 tablet = 1,000 International_Units, By Mouth, Daily, # 30 tablet, 0 Refills, Maintenance, 11/10/20 15:04:00 EDT, Tablet, [facility]/pharmacy #[id number], Partial fill upon patient [...] 11/08/20 Active Insomnia(Confirmed) Active Current use of termite treater helper anticoagulation(Confirmed) Active Depression, major(Confirmed) Active Mitral valve insufficiency(C onfirmed) 8, 9 Active Myofascial pain(Confirmed) 10 Active Lung nodule PET 2019 /no vch ng ct angio 2008(Confirmed) 10/24/19 Active Obstructive sleep apnea synd shaji ahi 5.9(Confirmed) 11, 12 Active Paroxysmal A-fib(Confirmed) 13, 14, 15, 16, 17, 18 Active Status post patch closure of ASD(Confirmed) Active Vitamin D deficiency(Confirmed) Active 1neos 2documented at [facility];referred repair 3UNDEFINED, BIOPSY PENDING 4had EGD [...] Procedure Date Related Diagnosis Body Site Status Ultrasound, abdominal, nad 11/16/20 Completed Social History Social History Type Response Smoking Status Never smoker; Tobacc o user in household: No entered on: 01/17/17 Sex
--- OUTSIDE RECORDS SUMMARY | 2023-06-29 02:59 | XMS_ITS | Continuity of Care Document ---
Author Name Unknown Organization [facility] Josh lt Address [address] [place] [address]- Care Team Providers Care Piper Installer Name Role Phone Miroslava CURTIS, Foreign Woodson Primary Care Physician [facility]counter [facility] Date(s): 05/05/20 - 06/04/20 [facility] Adult [address] [place] [address]- [facility] Allergies, Adverse Reactions, Alerts Substance Reaction Severity [...] 04/30/08 Give n 1Result Comment: [06/12/2018] [facility]-[id number] 2Result Comment: [06/26/2013] ORDERRED BY FOREIGN ACEVEDO MD 3Admin Note: historical data 4Admin Note: [employer] [facility] [place] VIS [phone] given 5Result Comment: error 6Admin Note: h1n1 also 7Result Comment: LOT #[id number]; PREVIOUSLY COMPLETED INJECTION HAD NOT BEEN GIVEN. 8Admin Note: given in clinic Medications Aspirin Enteric Coated 81 mg oral delayed release tablet See Instructions, # 90 tablet, Refills 1 Tot. Refills 1, 1 TABLET BY MOUTH DAILY, [facility]/pharmacy #[id number] Start Date: 03/17/19 Status: Ordered buPROPion 300 mg/24 hours (XL) oral tablet, extended release 1 tablet = 300 mg, By Mouth, Daily, # 30 tablet, 11 Refills, Maintenance, 10/07/19 14:15:00 EST, ERTablet, [facility]/pharmacy #7111, 177, cm, 09/27/19 8:18:00 EST, Height, 119.9, kg, 05/13/19 16:58:00 EDT, Dry Weight Start Date: 10/07/19 Status: Ordered dicyclomine 20 mg oral tablet 1 tablet, By Mouth, 4 times a day, PRN NEEDED, # 360 tablet, 1 Refills, Maintenance, 04/02/20 6:38:00 EDT, [facility], 177, cm, 09/27/19 8:18:00 EST, Height, 119.9, kg, 05/13/19 16:58:00 EDT,Dry Weight Start Date: 04/02/20 Status: Ordered Eliquis 5 mg oral tablet 1 tablet = 5 mg, By Mouth, 2 times a day, # 60 tablet, 8 Refills, Maintenance, 12/17/19 10:31:00 EDT, Tablet, [facility]/pharmacy #[id number], 177, cm, 09/27/19 8:18:00 EST, [...] 11 Refills, Maintenance, 05/05/20 9:56:00 EDT, [facility]/pharmacy #[id number], 177, cm, 09/27/19 8:18:00 EST, Height, 119.9, kg, 05/13/19 16:58:00 EDT, Dry Weight Start Date: 05/05/20 Stop Date: 04/30/21 Status: Ordered Toprol XL 25 mg oral tablet, extended release 25 mg, 1, tablet, By Mouth, Daily, # 30 tablet, Refills 11, Tot. Refills 11, Maintenance, 01/14/20 14:44:00 EDT, Route to Pharmacy Electronically, [facility]/pharmacy #[id number], 177, cm, 09/27/19 8:18:00 EST, Height, 119.9, kg, 05/13/19 16:58:00 EDT, Dry Weight Start Date: 01/14/20 Stop Date: 01/08/21 Status: Ordered Vitamin D3 2000 intl units oral tablet 1 tablet = 2,000 International_Units, By Mouth, Daily, # 90 tablet, 0 Refills, Maintenance, 05/05/20 9:42:00 EDT, [facility]/pharmacy #[id number], 177, cm, 09/27/19 8:18:00 EST, [...] Vitamin D deficiency(Confirmed) Active 1neos 2documented at [facility];referred repair 3UNDEFINED, BIOPSY PENDING 4ablated 08-08 [...]
--- OUTSIDE RECORDS SUMMARY | 2023-06-29 02:59 | XMS_ITS | Continuity of Care Document ---
Author Name Unknown Organization [facility] Josh lt Address [address] [place] [address]- Care Team Providers Care Professor Of Industrial Technology Name Role Phone Geovanna SOCIAL MEDIA MARKETER, Ada Desai Primary Care Physician [phone] [place] [facility] [place] 10/27/22 - 11/26/22 [facility] Adult [address] [place] [address]- Attending Physician: Admtr, Ar8 Allergies, Adverse Reactions, Alerts No Known Allergies Immunizations Given and Recorded Vaccine Date Status Refusal Reason SARS-CoV-2 mRNA (ndzyxta-lmqw-ivrlj) vax 1 04/18/22 Given SARS-CoV-2 (COVID-19) mRNA [...] Comment: [facility]-[id number] 2Result Comment: [facility]-[id number] 3Result Comment: [06/12/2018] [facility]-[id number] 4Result Comment: [06/26/2013] ORDERRED BY GRAYSON ACEVEDO MD 5Admin Note: historical data 6Admin Note: [place] [facility] VIS [phone] given 7Result Comment: error 8Admin Note: h1n1 also 9Result Comment: LOT #[id number]; PREVIOUSLY COMPLETED INJECTION HAD NOT BEEN GIVEN. 10Admin Note: given in clinic Medications amiodarone 200 mg oral tablet 200 mg, 1, tablet, By Mouth, Daily, # 30 tablet, Refills 6, Tot. Refills 6, Maintenance, 06/22/22 17:21:00 EDT, Route to Pharmacy Electronically, [facility]/pharmacy #7111, 178, cm, 06/16/22 11:19:00 EDT, Height, 118, kg, 05/13/22 6:24:00 EDT, Dry Weight Start Date: 06/22/22 Stop Date: 01/18/23 Status: Ordered amiodarone 200 mg oral tablet See Instructions, TAKE 1 TABLET BY MOUTH EVERY DAY, # 90 tablet, Refills 3, Maintenance, 11/25/22 7:37:00 EDT, Instructions Replace Required Details, Route to Pharmacy Electronically, [facility] STORE 29285, 178, cm, 06/16/22 11:19:00 EDT, Height, 118, kg, 0... Start Date: 11/25/22 Status: Ordered buPROPion 150 mg/24 hours (XL) oral tablet, extended release 1 tablet, By Mouth, Every 24 hours, # 90 tablet, 1 Refills, Maintenance, 07/07/22 19:24:00 EST, [facility], 90, TAKE 1 TABLET BY MOUTH EVERY 24 HOURS, 178, cm, 06/16/22 11:19:00 EDT, Height, 118, kg, 05/13/22 6:24:00 EDT, Dry Weight Start Date: 07/07/22 Status: Ordered dicyclomine 20 mg oral tablet 1 tablet, By Mouth, 4 times a day, PRN NEEDED, # 360 tablet, 1 Refills, [facility], 177, cm, 08/05/21 11:04:00 EST, Height Start Date: 01/02/22 Status: Ordered Eliquis 5 mg oral tablet See Instructions, TAKE 1 TABLET BY MOUTH TWICE A DAY FOR 30 DAYS, # 180 tablet, 3 Refills, [facility], 177, cm, 02/18/22 10:35:00 EDT, Height, 115.9, kg, 02/18/22 10:29:00 EDT, Dry Weight Start Date: 03/01/22 Status: Ordered omeprazole 20 mg oral enteric coated capsule 1 capsule, By Mouth, 2 times a day, # 60 capsule, 0 Refills, Maintenance, 11/22/22 16:12:00 EDT, [facility], 178, cm, 06/16/22 11:19:00 EDT, Height, 118, kg, 05/13/22 6:24:00 EDT, Dry Weight Start Date: 11/22/22 Status: Ordered Toprol XL 50 mg oral tablet, extended release 50 mg, 1, tablet, By Mouth, Daily, # 30 tablet, Refills 11, Tot. Refills 11, Maintenance, 09/23/22 8:02:00 EST, Route to Pharmacy Electronically, [facility]/pharmacy #7908, 178, cm, 06/16/22 11:19:00 EDT, Height, 118, kg, 05/13/22 6:24:00 EDT, Dry Weight Start Date: 09/23/22 Status: Ordered Vitamin D3 1000 intl units oral tablet 1 tablet, By Mouth, Daily, # 90 tablet, 0 Refills, [facility], 177, cm, 02/18/22 10:35:00 EDT,Height, 115.9, kg, [...] Active Insomnia Confirmed Active Current use of exterminator anticoagulation/advi sed medic alert Confirmed Active Depression, [...] D deficiency Confirmed Active 1neos 2documented at [facility];referred repair 3Confirmed by second opinion [...] Event Display: Cardiovascular Results Scanned Authored Date: [id number] * Danette Romeo: PERFORM Event Display: Laboratory Results Scanned Authored Date: [id number] * Carmela Deutsch: PERFORM Event Display: Radiology Results Scanned Authored Date: [id number] * Carmela Deutsch: PERFORM Event Display: Discharge/Transfer Note Hospital Authored Date: * Lisette Bai: PERFORM Event Display: Cardiovascular Results Scanned Authored Date: [id number] * Joyce Colunga: PERFORM Event Display: Cardiovascular Results Scanned Authored Date: [id number] Cardiology Outpatient Note * Lucita Contreras: PERFORM Event Display: Cardiology Note Office Authored Date: [id number] * Lisette Bai: PERFORM Event Display: Cardiology Note Office Authored Date: [id number] * Lucita Contreras: PERFORM Event Display: Cardiology Note Office Authored Date: [id number] Patient Care team information Care Team Personnel Name: Ada Austin NP Position: [facility] PCO Associate Professional Member Role: PCP Address: Address: [address] [place] [address]- [place] Name: Jono Hanna MD Position: [facility] Cardiology MD Member Role: Lifetime Consulting Physician Address: Address: [address] [place] [address] [place] [address]- [place] Name: Juany Booth RN Position: [facility] RN Member Role: Primary Care Nurse Name: Joey Tan RN Position: [facility] RN Member Role: Primary Care Nurse Name: Tami Lucas RN Position: [facility] RN Member Role: Primary Care Nurse Care Team Related Persons Name: TONY SAMSON Address: home [address] [place] [address] Name: MINDI BRENNAN Address: home [address] [place] [address]
--- OUTSIDE RECORDS SUMMARY | 2023-06-29 02:59 | XMS_ITS | Continuity of Care Document ---
Author Name Unknown Organization [facility] Address [address] [place] [address]- Care Team Providers Care All Around Presser Name Role Phone Miroslava CURTIS, Foreign Woodson Primary Care Physician [place] [facility] [place] 02/18/21 - 03/20/21 [facility] [address] [place] [address]- Attending Physician: Corie Jeronimo Admitting Physician: Corie [...] 04/30/08 Give n 1Result Comment: [06/12/2018] [facility]-[id number] 2Result Comment: [06/26/2013] ORDERRED BY FOREIGN ACEVEDO MD 3Admin Note: historical data 4Admin Note: [facility] VIS [phone] given 5Result Comment: error 6Admin Note: h1n1 also 7Result Comment: LOT #[id number]; PREVIOUSLY COMPLETED INJECTION HAD NOT BEEN GIVEN. 8Admin Note: given in clinic Medications dicyclomine 20 mg oral tablet 1 tablet, By Mouth, 4 times a day, PRN NEEDED, # 360 tablet, 1 Refills, Maintenance, 02/02/21 7:03:00 EDT, [facility], 177, cm, 11/10/20 14:43:00 EDT, Height, 119.9, [...] 8:19:00 EDT, Route to Pharmacy Electronically, [facility]/pharmacy #7111, 177, cm, 11/10/20 14:43:00 EDT, Height, 119.9, kg, 05/13/19 16:58:00 EDT, Dry Weight Start Date: 02/01/21 Stop Date: 01/27/22 Status: Ordered Vitamin D3 1000 intl units oral tablet 1 tablet, By Mouth, Daily, # 30 tablet, 5 Refills, Maintenance, 12/03/20 17:56:00 EDT, [facility], 177, cm, 11/10/20 14:43:00 EDT, Height, 119.9, [...] 11/08/20 Active Insomnia(Confirmed) Active Current use of adjunct faculty for medical terminology anticoagulation(Confirmed) Active Depression, major(Confirmed) Active Mitral valve insufficiency(C onfirmed) 8, 9 Active Myofascial pain(Confirmed) 10 Active Lung nodule PET 2019 /no vch ng ct angio 2008(Confirmed) 10/24/19 Active Obstructive sleep apnea synd shaji ahi 5.9(Confirmed) 11, 12 Active Paroxysmal A-fib(Confirmed) 13, 14, 15, 16, 17, 18 Active Status post patch closure of ASD(Confirmed) Active Vitamin D deficiency(Confirmed) Active 1neos 2documented at [facility];referred repair 3UNDEFINED, BIOPSY PENDING 4had EGD 5Confirmed [...]
--- OUTSIDE RECORDS SUMMARY | 2023-06-29 02:59 | XMS_ITS | Continuity of Care Document ---
Author Name Unknown Organization [facility] Josh lt Address [address] [place] [address]- Care Team Providers Care Rental Car Deliverer Name Role Phone Foreign [place] MD Primary Care Physician [phone] Encounter [facility] Date(s): 08/04/21 - 08/11/21 [facility] Adult [address] [place] [address]- Encounter Diagnosis Obstructive sleep apnea syndrome [id number]/2020(Discharge Diagnosis) - 08/02/21 Current use of adjunct faculty for medical terminology anticoagulation(Discharge Diagnosis) - 08/02/21 Chronic GERD EGD 2004(Discharge Diagnosis) - 08/02/21 Impaired fasting glucose(Discharge Diagnosis) - 08/02/21 Paroxysmal A-fib catheter ablation 2011(Discharge Diagnosis) - 08/02/21 Major depression in full remission(Discharge Diagnosis) - 08/02/21 Obese class II(Discharge Diagnosis) - 08/04/21 Attending Physician: Foreign [place] MD Allergies, Adverse [...] (oldterm) 04/30/08 Give n 1Result Comment: [facility]-[id number] 2Result Comment: [06/12/2018] [facility]-[id number] 3Result Comment: [06/26/2013] ORDERRED BY FOREIGN [place] MD 4Admin Note: historical data 5Admin Note: [employer] [facility] VIS [phone] given 6Result Comment: error 7Admin Note: h1n1 also 8Result Comment: LOT #[id number]; PREVIOUSLY COMPLETED INJECTION HAD NOT BEEN GIVEN. 9Admin Note: given in clinic Medications dicyclomine 20 mg oral tablet 1 tablet, By Mouth, 4 times a day, PRN NEEDED, # 360 tablet, 1 Refills, Maintenance, 02/02/21 7:03:00 EDT, [facility], 177, cm, 11/10/20 14:43:00 EDT, Height, 119.9, kg, 05/13/19 16:58:00 EDT, Dry Weight Start Date: 02/02/21 Status: Ordered duloxetine 30 mg oral enteric coated capsule 1 capsule, By Mouth, 2 times a day, # 180 capsule, 2 Refills, [facility], 177, cm, 05/06/21 10:48:00 EDT, Height Start [...] capsule, 11 Refills, Maintenance, 05/05/20 9:56:00 EDT, [facility]/pharmacy #7111, 177, cm, 09/27/19 8:18:00 EST, Height, 119.9, kg, 05/13/19 16:58:00 EDT, Dry Weight Start Date: 05/05/20 Stop Date: 04/30/21 Status: Ordered Toprol XL 25 mg oral tablet, extended release 25 mg, 1, tablet, By Mouth, Daily, # 30 tablet, Refills 11, Tot. Refills 11, Maintenance, 02/01/21 8:19:00 EDT, Route to Pharmacy Electronically, [facility]/pharmacy #7111, 177, cm, 11/10/20 14:43:00 EDT, Height, 119.9, kg, 05/13/19 16:58:00 EDT, Dry Weight Start Date: 02/01/21 Stop Date: 01/27/22 Status: Ordered Vitamin D3 1000 intl units oral tablet 1 tablet, By Mouth, Daily, # 30 tablet, 5 Refills, Maintenance, 12/03/20 17:56:00 EDT, [facility] ST[facility] 24878, 177, cm, 11/10/20 14:43:00 EDT, Height, 119.9, [...] Vitamin D deficiency(Confirmed) Active 1neos 2documented at [facility];referred repair 3had EGD 4Confirmed by second [...] Effective Dates Health Status Clinical Service Informant Obstructive sleep apnea syndrome ahi10.08/2020 Discharge Diagnosis 08/02/21 Current use of chcf anticoagulation Discharge Diagnosis 08/02/21 Chronic GERD EGD 2004 Discharge Diagnosis 08/02/21 Impaired fasting glucose Discharge Diagnosis 08/02/21 Paroxysmal A-fib catheter ablation 2011 Discharge Diagnosis 08/02/21 Major depression in full remission Discharge Diagnosis 08/02/21 Obese class II Discharge Diagnosis 08/04/21 Procedures Procedure Date Related Diagnosis Body Site Status Echocardiogram ef 55-60% 1 02/01/20 Completed 11) The LV systolic function appears grossly normal. The left ventricular ejection fraction is 55-60%. There are no definite regional wall motion abnormalities, although assessment is limited by poor endocardial definition 2) The right ventricular size and function appears grossly normal. 3) There is mild dilation of the ascending aorta (3.9 cm). 4) The left atrium is mildly dilated. The patient has a history of ASD repair by history. The interatrial septum appears intact on limited assessment. Comparison Comparison is made to the report of the prior study of October 11, 2017. There is no significant change. Signature Vital Signs Most recent to oldest [Reference Range]: 1 Height 177 cm (08/04/21 2:48 PM) Weight 122.3 kg (08/04/21 2:48 PM) Oxygen Saturation [94-100 %] 97 % (08/04/21 2:48 PM) Pulse Rate [55-90 bpm] 64 bpm (08/04/21 2:48 PM) Body Mass Index [18.5-24.99] 39.04 *>HHI* (08/04/21 2:48 PM) Blood Pressure [90-138/55-84 mm Hg] 130/ 83mm Hg (08/04/21 2:48 PM) Respiratory Rate [16-30 br/min] 16 br/mi n (08/04/21 2:48 PM) Temperature [96.8-100.4 DegF] 98.1 DegF (08/04/21 2:48 PM) Mode of Delivery (Oxygen) Room air (08/04/21 2:48 PM) Blood pressure sites Arm, left (08/04/21 2:48 PM) Temperature Route Oral (08/04/21 2:48 PM) Weight Obtained Via Standing scale (08/04/21 2:48 PM) Social History Social History Type Response Smoking Status Never smoker; Tobacc o user in household: No entered on: 01/17/17 Sex
--- OUTSIDE RECORDS SUMMARY | 2023-06-29 02:59 | XMS_ITS | Continuity of Care Document ---
Author Name Unknown Organization [facility] ter Address [address] [place] [address]- Care Team Providers Care Business Project Manager Name Role Phone Geovanna FUNERAL COUNSELOR, Ada Desai Primary Care Physician [phone] Encounter [facility] Date(s): 04/20/22 - 04/21/[address] [address]- Encounter Diagnosis Chest pain(Final) - 04/20/22 Discharge Disposition: A-D/C Home Attending Physician: Jennifer Teague MD Admitting Physician: Blu Islas MD Referring Physician: Not on Staff, Referring MD Allergies, Adverse Reactions, Alerts No Known Allergies Immunizations Given and Recorded Vaccine Date Status Refusal Reason SARS-CoV-2 mRNA (jhdzbrr-afsx-dysig) vax 1 04/18/22 Given SARS-CoV-2 (COVID-19) mRNA [...] Pertussis (oldterm) 04/30/08 Give n 1Result Comment: [facility]-[id number] 2Result Comment: [facility]-[id number] 3Result Comment: [06/12/2018] [facility]-[id number] 4Result Comment: [06/26/2013] ORDERRED BY GRAYSON ACEVEDO MD 5Admin Note: historical data 6Admin Note: [employer] [facility] VIS [phone] given 7Result Comment: error 8Admin Note: h1n1 also 9Result Comment: LOT #[id number]; PREVIOUSLY COMPLETED INJECTION HAD NOT BEEN GIVEN. 10Admin Note: given in clinic Medications amiodarone 200 mg oral tablet 200 mg, 1, tablet, By Mouth, Daily, # 30 tablet, Refills 6, Tot. Refills 6, Maintenance, 03/28/22 12:22:00 EDT, Route to Pharmacy Electronically, [facility]/pharmacy #[id number], 177, cm, 02/18/22 10:35:00 EDT, Height, 115.9, kg, 02/18/22 10:29:00 EDT, Dry Weight Start Date: 03/28/22 Stop Date: 10/24/22 Status: Ordered dicyclomine 20 mg oral tablet 1 tablet, By Mouth, 4 times a day, PRN NEEDED, # 360 tablet, 1 Refills, [facility], 177, cm, 08/05/21 11:04:00 EST, Height Start [...] # 180 tablet, 3 Refills, [facility], 177, cm, 02/18/22 10:35:00 EDT, Height, 115.9, kg, 02/18/22 10:29:00 EDT, Dry Weight Start Date: 03/01/22 Status: Ordered Toprol XL 50 mg oral tablet, extended release 50 mg, 1, tablet, By Mouth, Daily, # 30 tablet, Refills 11, Tot. Refills 11, Maintenance, 08/26/21 14:15:00 EST, Route to Pharmacy Electronically, [facility]/pharmacy #[id number], Partial fill upon patient request if the prescription is for a schedule II opioid . Start Date: 08/26/21 Status: Ordered Toprol XL 50 mg oral tablet, extended release 50 mg, XL Tablet, By Mouth, 04/21/22 9:00:00 EDT Start Date: 04/21/22 Stop Date: 04/21/22 Status: Completed Vitamin D3 1000 intl units oral tablet 1 tablet, By Mouth, Daily, # 90 tablet, 0 Refills, [facility], 177, cm, 02/18/22 10:35:00 EDT,Height, 115.9, kg, 02/18/22 10:29:00 EDT, Dry Weight Start Date: 04/01/22 Status: Ordered Problem List Condition Effective Dates Status Health Status Inform ant Adult BMI 30.0-30.9 kg/sq m(Confirmed) Active Ascending aortic aneurysm st able 4cm 2021(Confirmed) 07/31/19 Active Anxiety(Confirmed) 03/13/08 Active Traumatic arthritis of right foot(Confirmed) 1 Active Atrial septal defect, secundum(Confirmed) 2 08/24/09 Active Cholesteatoma(Confirmed) Active COVID-19(Confirmed) 01/02/22 Active Hearing loss in right ear/pr ior sx ear drum(Confirmed) Active IBS [Irritable bowel syndrome](Confirmed) 3, 4, 5 Active Impaired fasting glucose(Confirmed) 11/08/20 Active Insomnia(Confirmed) Active Current use of retirement anticoagulation/advised medic alert(Confirmed) Active Depression, major(Confirmed) Active [...] Vitamin D deficiency(Confirmed) Active 1neos 2documented at [facility];referred repair 3Confirmed by second opinion consultation 4seering GI still 5Dr [place] 6no need 7antibiotic prophylaxis;reminded;is aware 8low back;sees spine sports 9AHI 5.9 2008 study 10no significant issues per polysomnogram 11ablated 08-08 12May 07;echo EF 55% 13echo january 04 ef 55 % 14reduced EF 45% 15normal coronaries per angiography 16abnormal stress test; cardiac cath pending Results Radiology Reports * Exam Date Time Procedure Performing Provider Status 04/20/22 11:38 AM Chest Single Frontal View Sa jez Aguilar; Auth (Verified) Notes: (Chest Single Frontal View) Reason For Exam: Pleuritic Pain RESULT: Chest Single Frontal View AP upright portable chest dated April 20, 2022. Comparison films are from February 08, 2019. HISTORY: Chest pain and palpitations. FINDINGS: The cardiac silhouette is within normal limits for size. The patient is status post median sternotomy. No airspace infiltrate or pleural effusion is identified. IMPRESSION: No evidence of acute pulmonary disease. Examination 73249. Thank you for allowing me to participate in the care of this patient. WSN: [id number] Ordering Physician: Marek Hendrix Dictated By: Rigoberto Park MD Dictated Date/Time: 04/20/22 11:42 a Reviewed By: Rigoberto Park MD Signed By: Rigoberto Park MD Signed Date/Time: 04/20/22 11:42 am Transcribed By: LASHAUN Transcribed Date/Time: 04/20/22 11:41 am Vital Signs Most recent to oldest [Reference Range]: 1 2 3 Weight 115.2 kg (04/20/22 6:52 PM) Oxygen Saturation [94-100 %] 100 % (04/21/22 7:35 AM) 97 % (04/21/22 2:31 AM) 98 % (04/20/22 10:27 PM) Pulse Rate [55-90 bpm] 75 bpm (04/21/22 8:49 AM) 75 bpm (04/21/22 7:35 AM) 70 bpm (04/21/22 2:31 AM) Blood Pressure [90-138/55-84 mm Hg] 127/83mm Hg (04/21/22 8:49 AM) 127/83mm Hg (04/21/22 7:35 AM) 144/90mm Hg *H* (04/21/22 2:31 AM) Respiratory Rate [16-30 br/min] 18 br/min (04/21/22 8:18 AM) 18 br/min (04/21/22 7:35 AM) 18 br/min (04/21/22 2:31 AM) Temperature [96.8-100.4 DegF] 97.9 DegF (04/21/22 7:35 AM) 98.0 DegF (04/21/22 2:31 AM) 97.8 DegF (04/20/22 10:27 PM) Mode of Delivery (Oxygen) Room air (04/21/22 7:35 AM) Room air (04/21/22 2:31 AM) Room air (04/20/22 10:27 PM) Blood pressure sites Arm, left (04/21/22 7:35 AM) Arm, left (04/21/22 2:31 AM) Arm, right (04/20/22 10:27 PM) Temperature Route Oral (04/21/22 7:35 AM) Oral (04/21/22 2:31 AM) Oral (04/20/22 10:27 PM) Weight Obtained Via Bed scale (04/20/22 6:52 PM) Social History Social History Type Response Smoking Status Never smoker; Tobacc o user in household: No entered on: 01/17/17 Sex Note * BHSPowers[employer] , CIS S: TRANSCRIBE Xavier CURTIS, Rigoberto Holman: VERIFY Event Display: Result: Authored Date: AP upright portable chest dated April 20, 2022. Comparison films are from February 08, 2019. HISTORY: Chest pain and palpitations. FINDINGS: The cardiac silhouette is within normal limits for size. The patient is status post median sternotomy. No airspace infiltrate or pleural effusion is identified. IMPRESSION: No evidence of acute pulmonary disease. Examination 42794. Thank you for allowing me to participate in the care of this patient. WSN: [id number] Ordering Physician: Marek Hendrix Dictated By: Rigoberto Park MD Dictated Date/Time: 04/20/22 11:42 a Reviewed By: Rigoberto Park MD Signed By: Rigoberto Park MD Signed Date/Time: 04/20/22 11:42 am Transcribed By: LASHAUN Transcribed Date/Time: 04/20/22 11:41 am Care Team Personnel Name: Ada Austin NP Address: [address] [place] [address]
--- OUTSIDE RECORDS SUMMARY | 2023-06-29 02:59 | XMS_ITS | Continuity of Care Document ---
Author Name Unknown Organization [facility] Address [address] [place] [address]- Care Team Providers Care Lacquer Shader Name Role Phone Miroslava CURTIS, Foreign [place] Primary Care Physician Encounter [facility] Date(s): 02/25/22 - 03/27/22 [facility] [address] [place] [address]- [place] Allergies, Adverse Reactions, Alerts No Known [...] Give n 1Result Comment: [facility]-[id number] 2Result Comment: [06/12/2018] [facility]-[id number] 3Result Comment: [06/26/2013] ORDERRED BY FOREIGN ACEVEDO MD 4Admin Note: historical data 5Admin Note: [employer] [facility] VIS [phone] given 6Result Comment: error 7Admin Note: h1n1 also 8Result Comment: LOT #[id number]; PREVIOUSLY COMPLETED INJECTION HAD NOT BEEN GIVEN. 9Admin Note: given in clinic Medications amiodarone 200 mg oral tablet 400 mg, 2, tablet, By Mouth, Daily, # 60 tablet, Refills 1, Tot. Refills 1, Maintenance, 02/25/22 12:03:00 EDT, Route to Pharmacy Electronically, [facility]/pharmacy #7937, 177, cm, 02/18/22 10:35:00 EDT, Height, 115.9, kg, 02/18/22 10:29:00 EDT, Dry Weight Start Date: 02/25/22 Stop Date: 04/26/22 Status: Ordered dicyclomine 20 mg oral tablet 1 tablet, By Mouth, 4 times a day, PRN NEEDED, # 360 tablet, 1 Refills, [facility], 177, cm, 08/05/21 11:04:00 EST, Height Start [...] # 180 tablet, 3 Refills, [facility], 177, cm, 02/18/22 10:35:00 EDT, Height, 115.9, [...] capsule, 11 Refills, Maintenance, 05/05/20 9:56:00 EDT, [facility]/pharmacy #7111, 177, cm, 09/27/19 8:18:00 EST, Height, 119.9, kg, 05/13/19 16:58:00 EDT, Dry Weight Start Date: 05/05/20 Stop Date: 04/30/21 Status: Ordered Toprol XL 50 mg oral tablet, extended release 50 mg, 1, tablet, By Mouth, Daily, # 30 tablet, Refills 11, Tot. Refills 11, Maintenance, 08/26/21 14:15:00 EST, Route to Pharmacy Electronically, [facility]/pharmacy #7111, Partial fill upon patient request if the prescription is for a schedule II opioid . Start Date: 08/26/21 Status: Ordered Vitamin D3 1000 intl units oral tablet See Instructions, TAKE 1 TABLET BY MOUTH EVERY DAY, # 30 tablet, 2 Refills, [facility] 62391, 177, cm, 08/05/21 11:04:00 EST, Height Start [...] Active Insomnia(Confirmed) Active Current use of terminal supervisor anticoagulation(Confirmed) Active Depression, major(Confirmed) Active Mitral valve [...] Vitamin D deficiency(Confirmed) Active 1neos 2documented at [facility];referred repair 3had EGD 4Confirmed by second [...]
--- OUTSIDE RECORDS SUMMARY | 2023-06-29 02:59 | XMS_ITS | Continuity of Care Document ---
Author Name Unknown Organization [facility] Address [address] [place] [address]- Care Team Providers Care Veterans' Coordinator Name Role Phone Miroslava CURTIS, Foreign Woodson Primary Care Physician [phone] Encounter [facility] Date(s): 05/08/20 - 06/07/20 [facility] [address] [place] [address] Allergies, Adverse Reactions, Alerts Substance Reaction [...] 04/30/08 Give n 1Result Comment: [06/12/2018] [facility]-[id number] 2Result Comment: [06/26/2013] ORDERRED BY FOREIGN ACEVEDO MD 3Admin Note: historical data 4Admin Note: [employer] [facility] of [place] VIS [phone] given 5Result Comment: error 6Admin Note: h1n1 also 7Result Comment: LOT #[id number]; PREVIOUSLY COMPLETED INJECTION HAD NOT BEEN GIVEN. 8Admin Note: given in clinic Medications Aspirin Enteric Coated 81 mg oral delayed release tablet See Instructions, # 90 tablet, Refills 1 Tot. Refills 1, 1 TABLET BY MOUTH DAILY, [facility]/pharmacy #[id number] Start Date: 03/17/19 Status: Ordered buPROPion 300 mg/24 hours (XL) oral tablet, extended release 1 tablet = 300 mg, By Mouth, Daily, # 30 tablet, 11 Refills, Maintenance, 10/07/19 14:15:00 EST, ERTablet, [facility]/pharmacy #7111, 177, cm, 09/27/19 8:18:00 EST, Height, 119.9, kg, 05/13/19 16:58:00 EDT, Dry Weight Start Date: 10/07/19 Status: Ordered dicyclomine 20 mg oral tablet 1 tablet, By Mouth, 4 times a day, PRN NEEDED, # 360 tablet, 1 Refills, Maintenance, 04/02/20 6:38:00 EDT, [facility] STORE 42232, 177, cm, 09/27/19 8:18:00 EST, Height, 119.9, kg, 05/13/19 16:58:00 EDT,Dry Weight Start Date: 04/02/20 Status: Ordered Eliquis 5 mg oral tablet 1 tablet = 5 mg, By Mouth, 2 times a day, # 60 tablet, 8 Refills, Maintenance, 12/17/19 10:31:00 EDT, Tablet, [facility]/pharmacy #7111, 177, cm, 09/27/19 8:18:00 EST, [...] capsule, 11 Refills, Maintenance, 05/05/20 9:56:00 EDT, [facility]/pharmacy #7111, 177, cm, 09/27/19 8:18:00 EST, [...] tablet, 0 Refills, Maintenance, 05/05/20 9:42:00 EDT, [facility]/pharmacy #7111, 177, cm, 09/27/19 8:18:00 EST, [...] deficiency(Confirmed) Active 1neos 2documented at [facility];referred repair 3UNDEFINED, BIOPSY PENDING 4ablated 08-08 [...]
--- OUTSIDE RECORDS SUMMARY | 2023-06-29 03:00 | XMS_ITS | Continuity of Care Document ---
Author Name Unknown Organization [facility] Josh lt Address [address] [place] [address]- Care Team Providers Care Leather Sorter Name Role Phone Jeremiah Aguirre DO Primary Care Physician [phone] Encounter [facility] Date(s): 04/24/23 - 05/24/23 [facility] Adult [address] [place] [address]- Allergies, Adverse Reactions, Alerts No Known Allergies Immunizations Given and Recorded Vaccine Date Status Refusal Reason SARS-CoV-2 mRNA ([id number]-[id number]-wnshy) vax 1 04/18/22 Given SARS-CoV-2 (COVID-19) mRNA [...] (oldterm) 04/30/08 Give n 1Result Comment: [facility]-[id number] 2Result Comment: [facility]-[id number] 3Result Comment: [06/12/2018] [facility]-[id number] 4Result Comment: [06/26/2013] ORDERRED BY GRAYSON ACEVEDO MD 5Admin Note: historical data 6Admin Note: [employer] [facility] [facility] VIS [phone] given 7Admin Note: h1n1 also 8Result Comment: LOT #[id number]; PREVIOUSLY COMPLETED INJECTION HAD NOT BEEN GIVEN. 9Admin Note: given in clinic Medications amiodarone 200 mg oral tablet 200 mg, 1, tablet, By Mouth, Daily, # 30 tablet, Refills 6, Tot. Refills 6, Maintenance, 06/22/22 17:21:00 EDT, Route to Pharmacy Electronically, [facility]/pharmacy #7111, 178, cm, 06/16/22 11:19:00 EDT, Height, 118, kg, 05/13/22 6:24:00 EDT, Dry Weight Start Date: 06/22/22 Stop Date: 01/18/23 Status: Ordered amiodarone 200 mg oral tablet See Instructions, TAKE 1 TABLET BY MOUTH EVERY DAY, # 90 tablet, Refills 3, Maintenance, 11/25/22 7:37:00 EDT, Instructions Replace Required Details, Route to Pharmacy Electronically, [facility] STORE 87369, 178, cm, 06/16/22 11:19:00 EDT, Height, 118, kg, 0... Start Date: 11/25/22 Status: Ordered buPROPion 150 mg/24 hours (XL) oral tablet, extended release 1 tablet, By Mouth, Every 24 hours, # 90 tablet, 1 Refills, Maintenance, 07/07/22 19:24:00 EST, [facility], 90, TAKE 1 TABLET BY MOUTH EVERY 24 HOURS, 178, cm, 06/16/22 11:19:00 EDT, Height, 118, kg, 05/13/22 6:24:00 EDT, Dry Weight Start Date: 07/07/22 Status: Ordered dicyclomine 20 mg oral tablet 1 tablet, By Mouth, 4 times a day, PRN NEEDED, # 360 tablet, 1 Refills, 04/25/23 13:24:00 EDT, [facility]/pharmacy #7111, 178, cm, 02/02/23 15:13:00 EDT, Height, [...] capsule, 6 Refills, Maintenance, 04/25/23 12:06:00 EDT, [facility]/pharmacy #7111, 178, cm, 02/02/23 15:13:00 EDT, Height, 118, kg, 05/13/22 6:24:00 EDT, Dry Weight Start Date: 04/25/23 Status: Ordered Toprol XL 50 mg oral tablet, extended release 50 mg, 1, tablet, By Mouth, Daily, # 30 tablet, Refills 11, Tot. Refills 11, Maintenance, 09/23/22 8:02:00 EST, Route to Pharmacy Electronically, [facility]/pharmacy #7937, 178, cm, 06/16/22 11:19:00 EDT, Height, 118, kg, 05/13/22 6:24:00 EDT, Dry Weight Start Date: 09/23/22 Status: Ordered Vitamin D3 1000 intl units oral tablet 1 tablet, By Mouth, Daily, # 90 tablet, 0 Refills, [facility], 177, cm, 02/18/22 10:35:00 EDT,Height, 115.9, kg, [...] Confirmed 11/08/20 Active Current use of termite control representative anticoagulation/advi sed medic alert Confirmed Active Mitral [...] D deficiency Confirmed Active 1neos 2documented at [facility];referred repair 3Confirmed by second opinion consultation 4seering [...] Team Personnel Name: Ada Austin NP Position: [facility] PCO Associate Professional Member Role: Lifetime Consulting Provider Address: Address: [address] [place] [address]- Name: Jono Hanna MD Position: [facility] Cardiology MD Member Role: Lifetime Consulting Physician Address: Address: [address] [place] [address] [place] [address]- [place] Name: Juany Booth RN Position: [facility] RN Member Role: Primary Care Nurse Name: Joey Tan RN Position: [facility] RN Member Role: Primary Care Nurse Name: Jeremiah Aguirre DO Position: [facility] Physician - Primary Care Member Role: PCP Address: Address: [address] [place] [address] [place], [place] [address] Name: Tami Lucas RN Position: [facility] RN Member Role: Primary Care Nurse Care Team Related Persons Name: IFRAHTONY Aj Address: home [address] [place] [address] Name: MINDI BRENNAN Address: home [address] [place] [address]
--- OUTSIDE RECORDS SUMMARY | 2023-06-29 03:00 | XMS_ITS | Continuity of Care Document ---
Author Name Unknown Organization [facility] Address [address] [place] [address]- Care Team Providers Care Senior Sourcing Manager Name Role Phone Miroslava CURTIS, Foreign Woodson Primary Care Physician [phone] Encounter [facility] Date(s): 11/05/21 - 03/05/22 [facility] [address] [address]- Attending Physician: Jose Sutton MD Admitting Physician: Jose Sutton MD Referring Physician: Rohit Dunlap MD Allergies, Adverse Reactions, Alerts No Known [...] 1Result Comment: [facility]-[id number] 2Result Comment: [06/12/2018] [facility]-[id number] 3Result Comment: [06/26/2013] ORDERRED BY FOREIGN ACEVEDO MD 4Admin Note: historical data 5Admin Note: [employer] [facility] VIS [phone] given 6Result Comment: error 7Admin Note: h1n1 [...] # 360 tablet, 1 Refills, [facility], 177, cm, 08/05/21 11:04:00 EST, Height Start [...] # 180 tablet, 3 Refills, [facility], 177, cm, 02/18/22 10:35:00 EDT, Height, 115.9, [...] 2 Refills, [facility] STORE 20536, 177, cm, 08/05/21 11:04:00 EST, Height Start [...] 11/08/20 Active Insomnia(Confirmed) Active Current use of assistant terminal manager anticoagulation(Confirmed) Active Depression, major(Confirmed) Active Mitral valve [...] D deficiency(Confirmed) Active 1neos 2documented at [facility];referred repair 3had EGD 4Confirmed by second [...]
--- OUTSIDE RECORDS SUMMARY | 2023-06-29 03:00 | XMS_ITS | Continuity of Care Document ---
Author Name Unknown Organization [facility] Address [address] [place] [address]- Care Team Providers Care Safety Investigator/Cause Analyst Name Role Phone Miroslava CURTIS, Foreign Woodson Primary Care Physician [phone] Encounter [facility] Date(s): 02/01/21 - 03/03/21 [facility] [address] [place] [address] Allergies, Adverse Reactions, Alerts Substance Reaction Severity [...] 04/30/08 Give n 1Result Comment: [06/12/2018] [facility]-[id number] 2Result Comment: [06/26/2013] ORDERRED BY FOREIGN ACEVEDO MD 3Admin Note: historical data 4Admin Note: [facility] VIS [phone] given 5Result Comment: error 6Admin Note: h1n1 also 7Result Comment: LOT #[id number]; PREVIOUSLY COMPLETED INJECTION HAD NOT BEEN GIVEN. 8Admin Note: given in clinic Medications dicyclomine 20 mg oral tablet 1 tablet, By Mouth, 4 times a day, PRN NEEDED, # 360 tablet, 1 Refills, Maintenance, 02/02/21 7:03:00 EDT, [facility], 177, cm, 11/10/20 14:43:00 EDT, Height, 119.9, [...] 02/01/21 8:19:00 EDT, Route to Pharmacy Electronically, [facility]/pharmacy #7111, 177, cm, 11/10/20 14:43:00 EDT, Height, 119.9, kg, 05/13/19 16:58:00 EDT, Dry Weight Start Date: 02/01/21 Stop Date: 01/27/22 Status: Ordered Vitamin D3 1000 intl units oral tablet 1 tablet, By Mouth, Daily, # 30 tablet, 5 Refills, Maintenance, 12/03/20 17:56:00 EDT, [facility], 177, cm, 11/10/20 14:43:00 EDT, Height, 119.9, [...] 2documented at [facility];referred repair 3UNDEFINED, BIOPSY PENDING 4had EGD 5Confirmed [...]
--- OUTSIDE RECORDS SUMMARY | 2023-06-29 03:00 | XMS_ITS | Continuity of Care Document ---
Author Name Unknown Organization [facility] Address [address] [place] [address]- Care Team Providers Care Small Engine Mechanic Name Role Phone Miroslava CURTIS, Foreign Woodson Primary Care Physician Encounter [facility] Date(s): 08/26/21 - 09/25/21 [facility] [address] [place] [address]- [place] Allergies, Adverse Reactions, Alerts No Known [...] [facility]-[id number] 2Result Comment: [06/12/2018] [facility]-[id number] 3Result Comment: [06/26/2013] ORDERRED BY FOREIGN ACEVEDO MD 4Admin Note: historical data 5Admin Note: [employer] [facility] VIS [phone] given 6Result Comment: error 7Admin Note: h1n1 also 8Result Comment: LOT #[id number]; PREVIOUSLY COMPLETED INJECTION HAD NOT BEEN GIVEN. 9Admin Note: given in clinic Medications dicyclomine 20 mg oral tablet 1 tablet, By Mouth, 4 times a day, PRN NEEDED, # 360 tablet, 1 Refills, Maintenance, 02/02/21 7:03:00 EDT, [facility], 177, cm, 11/10/20 14:43:00 EDT, Height, 119.9, [...] 08/26/21 14:15:00 EST, Route to Pharmacy Electronically, [facility]/pharmacy #7111, Partial fill upon patient request if the prescription is for a schedule II opioid . Start Date: 08/26/21 Status: Ordered Vitamin D3 1000 intl units oral tablet See Instructions, TAKE 1 TABLET BY MOUTH EVERY DAY, # 30 tablet, 2 Refills, [facility] STORE 57723, 177, cm, 08/05/21 11:04:00 EST, Height Start [...] 11/08/20 Active Insomnia(Confirmed) Active Current use of custodial anticoagulation(Confirmed) Active Depression, major(Confirmed) Active Mitral valve [...]
--- OUTSIDE RECORDS SUMMARY | 2023-06-29 03:00 | XMS_ITS | Continuity of Care Document ---
Author Name Unknown Organization [facility] Josh lt Address [address] [place] [address]- Care Team Providers Care Flute Grinder Name Role Phone Geovanna CEVALLOS, Ada Desai Primary Care Physician [phone] Encounter [facility] Date(s): 07/29/22 - 11/26/22 [facility] Adult [address] [place] [address]- Attending Physician: Ada Austin NP Referring Physician: Foreign [place] MD Allergies, Adverse Reactions, Alerts No Known Allergies Immunizations Given and Recorded Vaccine Date Status Refusal Reason SARS-CoV-2 mRNA (rxviknj-lvkc-[id number]) vax 1 04/18/22 Given SARS-CoV-2 (COVID-19) mRNA [...] Pertussis (oldterm) 04/30/08 Give n 1Result Comment: [facility]-[id number] 2Result Comment: [facility]-[id number] 3Result Comment: [06/12/2018] [facility]-[id number] 4Result Comment: [06/26/2013] ORDERRED BY FOREIGN [place] MD 5Admin Note: historical data 6Admin Note: [employer] [facility] VIS [phone] given 7Result Comment: error 8Admin Note: h1n1 also 9Result Comment: LOT #[id number]; PREVIOUSLY COMPLETED INJECTION HAD NOT BEEN GIVEN. 10Admin Note: given in clinic Medications amiodarone 200 mg oral tablet 200 mg, 1, tablet, By Mouth, Daily, # 30 tablet, Refills 6, Tot. Refills 6, Maintenance, 06/22/22 17:21:00 EDT, Route to Pharmacy Electronically, [facility]/pharmacy #7111, 178, cm, 06/16/22 11:19:00 EDT, Height, 118, kg, 05/13/22 6:24:00 EDT, Dry Weight Start Date: 06/22/22 Stop Date: 01/18/23 Status: Ordered amiodarone 200 mg oral tablet See Instructions, TAKE 1 TABLET BY MOUTH EVERY DAY, # 90 tablet, Refills 3, Maintenance, 11/25/22 7:37:00 EDT, Instructions Replace Required Details, Route to Pharmacy Electronically, [facility] STORE 62429, 178, cm, 06/16/22 11:19:00 EDT, Height, 118, kg, 0... Start Date: 11/25/22 Status: Ordered buPROPion 150 mg/24 hours (XL) oral tablet, extended release 1 tablet, By Mouth, Every 24 hours, # 90 tablet, 1 Refills, Maintenance, 07/07/22 19:24:00 EST, [facility], 90, TAKE 1 TABLET BY MOUTH EVERY 24 HOURS, 178, cm, 06/16/22 11:19:00 EDT, Height, 118, kg, 05/13/22 6:24:00 EDT, Dry Weight Start Date: 07/07/22 Status: Ordered dicyclomine 20 mg oral tablet 1 tablet, By Mouth, 4 times a day, PRN NEEDED, # 360 tablet, 1 Refills, [facility] STORE 88563, 177, cm, 08/05/21 11:04:00 EST, Height Start Date: 01/02/22 Status: Ordered Eliquis 5 mg oral tablet See Instructions, TAKE 1 TABLET BY MOUTH TWICE A DAY FOR 30 DAYS, # 180 tablet, 3 Refills, [facility], 177, cm, 02/18/22 10:35:00 EDT, Height, 115.9, kg, 02/18/22 10:29:00 EDT, Dry Weight Start Date: 03/01/22 Status: Ordered omeprazole 20 mg oral enteric coated capsule 1 capsule, By Mouth, 2 times a day, # 60 capsule, 0 Refills, Maintenance, 11/22/22 16:12:00 EDT, [facility] STORE 80266, 178, cm, 06/16/22 11:19:00 EDT, Height, 118, kg, 05/13/22 6:24:00 EDT, Dry Weight Start Date: 11/22/22 Status: Ordered Toprol XL 50 mg oral tablet, extended release 50 mg, 1, tablet, By Mouth, Daily, # 30 tablet, Refills 11, Tot. Refills 11, Maintenance, 09/23/22 8:02:00 EST, Route to Pharmacy Electronically, [facility]/pharmacy #7937, 178, cm, 06/16/22 11:19:00 EDT, Height, 118, kg, 05/13/22 6:24:00 EDT, Dry Weight Start Date: 09/23/22 Status: Ordered Vitamin D3 1000 intl units oral tablet 1 tablet, By Mouth, Daily, # 90 tablet, 0 Refills, [facility] STORE 70639, 177, cm, 02/18/22 10:35:00 EDT,Height, 115.9, kg, [...] D deficiency Confirmed Active 1neos 2documented at [facility];referred repair 3Confirmed by second opinion consultation [...] Team Personnel Name: Ada Austin NP Position: [facility] PCO Associate Professional Member Role: PCP Address: Address: [address] [place] [address]- [place] Name: Jono Hanna MD Position: [facility] Cardiology MD Member Role: Lifetime Consulting Physician Address: Address: [address] [place] [address] [place] [address]- Name: Juany Booth RN Position: S RN Member Role: Primary Care Nurse Name: Joey Tan RN Position: S RN Member Role: Primary Care Nurse Name: Tami Lucas RN Position: [facility] RN Member Role: Primary Care Nurse Care Team Related Persons Name: TONY SAMSON Address: [address] [place] [address] Name: MINDI BRENNAN Address: home [address] [place] [address]
--- OUTSIDE RECORDS SUMMARY | 2023-06-29 03:00 | XMS_ITS | Continuity of Care Document ---
Author Name Unknown Organization [facility] Address [address] [place] [address]- Care Team Providers Care Magazine Keeper Name Role Phone Miroslava CURTIS, Foreign Woodson Primary Care Physician [phone] Encounter [facility] Date(s): 05/21/21 - 06/20/[address] [address]- Allergies, Adverse Reactions, Alerts Substance Reaction Severity [...] 1Result Comment: [06/12/2018] [facility]-[id number] 2Result Comment: [06/26/2013] ORDERRED BY FOREGIN ACEVEDO MD 3Admin Note: historical data 4Admin Note: [employer]ical [employer] [facility] VIS [phone] given 5Result Comment: error 6Admin Note: h1n1 also 7Result Comment: LOT #[id number]; PREVIOUSLY COMPLETED INJECTION HAD NOT BEEN GIVEN. 8Admin Note: given in clinic Medications dicyclomine 20 mg oral tablet 1 tablet, By Mouth, 4 times a day, PRN NEEDED, # 360 tablet, 1 Refills, Maintenance, 02/02/21 7:03:00 EDT, [facility], 177, cm, 11/10/20 14:43:00 EDT, Height, 119.9, kg, 05/13/19 16:58:00 EDT, Dry Weight Start Date: 02/02/21 Status: Ordered duloxetine 30 mg oral enteric coated capsule 1 capsule = 30 mg, By Mouth, 2 times a day, # 60 each, 6 Refills, Maintenance, 11/18/20 16:47:00 EDT, [facility]/pharmacy #7111, Partial fill upon patient request if [...] 02/01/21 8:19:00 EDT, Route to Pharmacy Electronically, [facility]/pharmacy #7111, 177, cm, 11/10/20 14:43:00 EDT, Height, 119.9, kg, 05/13/19 16:58:00 EDT, Dry Weight Start Date: 02/01/21 Stop Date: 01/27/22 Status: Ordered Vitamin D3 1000 intl units oral tablet 1 tablet, By Mouth, Daily, # 30 tablet, 5 Refills, Maintenance, 12/03/20 17:56:00 EDT, [facility] STORE 39635, 177, cm, 11/10/20 14:43:00 EDT, Height, 119.9, [...] Active Insomnia(Confirmed) Active Current use of termite renewal inspector anticoagulation(Confirmed) Active Depression, major(Confirmed) Active Mitral valve insufficiency(C onfirmed) 8, 9 Active Myofascial pain(Confirmed) 10 Active Lung nodule PET 2019 /no vch ng ct angio 2008(Confirmed) 10/24/19 Active Obstructive sleep apnea synd shaji ahi10.08/2020(Confirmed) 11, 12 Active Paroxysmal A-fib(Confirmed) 13, 14, 15, 16, 17, 18 Active Status post patch closure of ASD(Confirmed) Active Vitamin D deficiency(Confirmed) Active 1neos 2documented at [facility];referred repair 3UNDEFINED, BIOPSY PENDING 4had [...]
--- OUTSIDE RECORDS SUMMARY | 2023-06-29 03:00 | XMS_ITS | Continuity of Care Document ---
Author Name Unknown Organization [facility] Address [address] [place] [address]- Care Team Providers Care Bulwark Carpenter Name Role Phone Geovanna Ada CEVALLOS Primary Care Physician [phone] Encounter [facility] Date(s): 05/24/22 - 06/23/22 [facility] [address] [place] [address]- [place] Allergies, Adverse Reactions, Alerts No Known Allergies Immunizations Given and Recorded Vaccine Date Status Refusal Reason SARS-CoV-2 mRNA (lwtwvlg-smxy-gdszz) vax 1 04/18/22 Given SARS-CoV-2 (COVID-19) mRNA [...] Pertussis (oldterm) 04/30/08 Give n 1Result Comment: [facility]-[id number] 2Result Comment: [facility]-[id number] 3Result Comment: [06/12/2018] [facility]-[id number] 4Result Comment: [06/26/2013] ORDERRED BY GRAYSON ACEVEDO MD 5Admin Note: historical data 6Admin Note: [employer] [facility] VIS [phone] given 7Result Comment: error 8Admin Note: h1n1 also 9Result Comment: LOT #[id number]; PREVIOUSLY COMPLETED INJECTION HAD NOT BEEN GIVEN. 10Admin Note: given in clinic Medications amiodarone 200 mg oral tablet 200 mg, 1, tablet, By Mouth, Daily, # 30 tablet, Refills 6, Tot. Refills 6, Maintenance, 06/22/22 17:21:00 EDT, Route to Pharmacy Electronically, [facility]/pharmacy #7111, 178, cm, 06/16/22 11:19:00 EDT, Height, 118, kg, 05/13/22 6:24:00 EDT, Dry Weight Start Date: 06/22/22 Stop Date: 01/18/23 Status: Ordered dicyclomine 20 mg oral tablet 1 tablet, By Mouth, 4 times a day, PRN NEEDED, # 360 tablet, 1 Refills, [facility], 177, cm, 08/05/21 11:04:00 EST, Height Start Date: 01/02/22 Status: Ordered Eliquis 5 mg oral tablet See Instructions, TAKE 1 TABLET BY MOUTH TWICE A DAY FOR 30 DAYS, # 180 tablet, 3 Refills, [facility] STORE 97357, 177, cm, 02/18/22 10:35:00 EDT, Height, 115.9, kg, 02/18/22 10:29:00 EDT, Dry Weight Start Date: 03/01/22 Status: Ordered omeprazole 20 mg oral delayed release tablet 1 tablet = 20 mg, By Mouth, 2 times a day, # 60 tablet, 0 Refills, Maintenance, 05/13/22 17:23:00 EDT, EC Tablet, [facility]/pharmacy #7111, Partial fill upon patient request if the prescription is for a schedule II opioid drug., 177, cm, 05/13/22 13:26:00 E... Start Date: 05/13/22 Stop Date: 06/12/22 Status: Ordered Toprol XL 50 mg oral tablet, extended release 50 mg, 1, tablet, By Mouth, Daily, # 30 tablet, Refills 11, Tot. Refills 11, Maintenance, 08/26/21 14:15:00 EST, Route to Pharmacy Electronically, [facility]/pharmacy #7148, Partial fill upon patient request if the prescription is for a schedule II opioid . Start Date: 08/26/21 Status: Ordered Vitamin D3 1000 intl units oral tablet 1 tablet, By Mouth, Daily, # 90 tablet, 0 Refills, [facility] 47768, 177, cm, 02/18/22 10:35:00 EDT,Height, 115.9, kg, [...] Active Insomnia Confirmed Active Current use of manager terminal anticoagulation/advi sed medic alert Confirmed Active Depression, [...] D deficiency Confirmed Active 1neos 2documented at [facility];referred repair 3Confirmed by second opinion [...] Name: Geovanna CEVALLOS, Ada Desai Address: Address: [address] [place] [id number]
--- NOTE | 2023-06-29 03:56 | PC.NURSE ---
care assumed of patient at this time
[2023-06-29 04:46] VITALS: BP 117/71; PULSE 66; RESP 18; O2SAT 96
[2023-06-29] MEDS: Acetaminophen 325 MG TABLET 650 MG PO ×4 (04:57→20:53)
--- NOTE | 2023-06-29 05:30 | MHC.EDTECH ---
Patient was brought from [facility],hourly rounds completed and belonging list done for admission. call zuleta within reach.
--- NOTE | 2023-06-29 06:24 | MHC.EDTECH ---
Hourly rounds completed and patient is sleeping at this time.
[2023-06-29] MEDS: 0.9 % Sodium Chloride Flush 3 ML SYRINGE IVFLUSH ×2 (08:18→16:23)
[2023-06-29 08:19] VITALS: BP 134/93; PULSE 70; RESP 14; TEMP 36.6; O2SAT 96
[2023-06-29] MEDS: ceFAZolin Sodium/Dextrose,Iso 2 GM/50 ML PIGGYBACK IV ×2 (08:19→16:22)
--- NOTE | 2023-06-29 08:37 | PHA.MEDREC ---
Pharmacy Consult ? Medication Reconciliation Pharmacy has completed the medication reconciliation. Spoke to patient to complete med rec. No claim history for Ramesh but pt states his signed him up for some program that gets it for him for free from [facility].
[2023-06-29] MEDS: Metoprolol Succinate ER 50 MG TAB.ER.24H PO (08:52)
[2023-06-29] MEDS: buPROPion HCl XL 150 MG TAB.ER.24H PO (08:52)
[2023-06-29] MEDS: Amiodarone HCL 200 MG TABLET PO (08:52)
--- NOTE | 2023-06-29 09:03 | PC.NURSE ---
Ortho down to see pt. continue with plan to keep pt NPO pending possible wound wash out
[2023-06-29 09:10] VITALS: BP 123/64; PULSE 67; RESP 18; TEMP 36.1; O2SAT 98
--- NOTE | 2023-06-29 09:14 | P.CONOP_ITS ---
History of Present Illness HPI Consult date: 06/29/23 Chief complaint: Cellulitis Narrative: Patient admitted to the medical service for left hand cellulitis after having a splinter in his hand. He states he did removed it, unsure if there is any remaining splinter in the hand, but he did notice increased pain, swelling and redness which prompted him to come to the ED. He currently experiences pain with trying to make a fist. Orthopedics was consulted for further recommendations. Review of Systems 2 Review of Systems: per [facility] Past Medical History Medical History (Updated 06/29/23 @ 02:22 by David Chao) Paroxysmal atrial fibrillation Social History Social History Household Members: Spouse Housing: House Do you presently have visiting nurse or other home services: No Alcohol intake: current Alcohol intake frequency: a few times a month Patient Tobacco Use Status: Never used Tobacco Smoked in Last 30 Days: No Use of substances other than those prescribed or required for medical reasons: No Currently Displaying Signs/Symptoms of Drug Intoxication Withdrawal: No Have you been hit, kicked, punched, or otherwise hurt by someone within the past year? If so, by whom?: No Do you feel safe in your current relationship?: Yes Is there a partner from a previous relationship who is making you feel unsafe now?: No Are you made to feel afraid or neglected: No Advance Directives: No Advance Directives Information Provided: No Do you have thoughts of harming others: None Do you have a plan to hurt others: No Plan Recently lost weight without trying: No Eating poorly because of decreased appetite: No Nutrition Risks: No Nutritional Risk service: No Meds Allergies Allergy/AdvReac Type Severity Reaction Status Date / Time No Known Allergies Allergy Mild UNKNOWN Verified 06/28/23 18:22 Active Medications: Current Medications Acetaminophen (Acetaminophen 325 Mg Tablet) 650 mg PO Q4H PRN PRN Reason: moderate pain Last Admin: 06/29/23 08:52 Dose: 650 mg Amiodarone HCl (Amiodarone Hcl 200 Mg Tablet) 200 mg PO DAILY [facility] Last Admin: 06/29/23 08:52 Dose: 200 mg Bupropion HCl (Bupropion Hcl Xl 150 Mg Tab.Er.24h) 150 mg PO DAILY [facility] Last Admin: 06/29/23 08:52 Dose: 150 mg Enoxaparin Sodium (Enoxaparin Sodium 40 Mg/0.4 Ml Syringe) 40 mg SUBCUT Q24H [facility] Cefazolin Sodium/Dextrose (Ancef) 2 gm in 50 mls @ 100 mls/hr IV Q8H [facility] Last Infusion: 06/29/23 08:51 Dose: Infused Metoprolol Succinate (Metoprolol Succinate Er 50 Mg Tab.Er.24h) 50 mg PO DAILY [facility]; Protocol Last Admin: 06/29/23 08:52 Dose: 50 mg Morphine Sulfate (Morphine Sulfate 2 Mg/Ml Cartridge) 2 mg IVPUSH Q4H PRN; Protocol PRN Reason: moderate pain Last Admin: 06/29/23 08:52 Dose: 2 mg Sodium Chloride (0.9 % Sodium Chloride Flush 3 Ml Syringe) 3 ml IVFLUSH QSHIFT [facility] Last Admin: 06/29/23 08:18 Dose: 3 ml Home Medications Medication Instructions Recorded Confirmed Last Taken Type amiodarone 200 mg tablet 200 mg PO DAILY 06/28/23 06/29/23 06/28/23 History apixaban 5 mg tablet (Eliquis) 5 mg PO BID 06/28/23 06/29/23 06/28/23 History bupropion HCl 150 mg 24 hr tablet, 150 mg PO DAILY 06/28/23 06/29/23 06/28/23 History extended release dicyclomine 20 mg tablet 20 mg PO QID PRN Pain 06/28/23 06/29/23 06/28/23 History metoprolol succinate 50 mg 50 mg PO DAILY 06/29/23 06/29/23 06/28/23 History tablet,extended release 24 hr omeprazole 20 mg capsule,delayed 20 mg PO BID 06/29/23 06/29/23 06/28/23 History release Physical Exam 2 Vital Signs: Vital Signs: Last Vital Signs Temp 97.0 F 06/29/23 09:10 Pulse 67 06/29/23 09:10 Resp 18 06/29/23 09:10 BP 123/64 06/29/23 09:10 Pulse Ox 98 06/29/23 09:10 O2 Del Method Room Air 06/29/23 09:10 BMI result Body Mass Index 37.1 Const: General: cooperative, healthy appearing, comfortable and no acute distress Extrem: Other: Left hand with redness over the dorsum and volar aspect of the hand. There is an area along the volar aspect of the hand at the base of the index finger that is tender to palpation. No fluctulance. No abscess formation. No pain with passive extension of the digits, no pain with axial loading. Difficulty with making a fist due to swelling. NVI. Results Labs 06/30/23 06:26 06/30/23 06:26 Labs: Abnormal lab results 06/28/23 Range/Units 18:42 Immature Gran % (Auto) 1.0 H (0.0-0.4) % Abs Immat Gran (auto) 0.09 H (0.00-0.03) X10*3/uL Chloride 110 H (96-108) mmol/L H & H 06/28/23 Range/Units 18:42 Hgb 14.6 (14.0-18.0) g/dl Hct 43.2 (42.0-52.0) % Coagulation 06/28/23 Range/Units 21:51 INR 1.0 (0.9-1.1) All other labs normal. Assessment and Plan (1) Cellulitis of hand, left: Status: Acute Plan Continue IV abx Perform ROM of the hand No surgical intervention at this time Procedures Date of Service Date of Service: 06/30/23
[2023-06-29 09:30] VITALS: BMI 37.0
--- NOTE | 2023-06-29 12:07 | PM.EVENT ---
Event Note Date of Service: 06/29/23 Event Note: Seen and evaluated this morning Feels mildly better still having erythema and pain No fever or chills Pending orthopedics eval Continue Vancomycin and Cefazolin Time Spent With Patient Time: Total time managing care of this patient today ____ minutes.
[2023-06-29 15:42] VITALS: BP 129/71; PULSE 75; RESP 18; TEMP 36.1; O2SAT 96
--- NOTE | 2023-06-29 16:20 | MHC.CM.PN ---
PT REPORTS HE LIVES WITH HIS AND IS INDEPENDENT WITH CARE PT HAS NO DME AND NO SERVICES HE REPORTS HIS IS HIS HCP, COPY REQUESTED PCP: KULWANT HAREVY DCP: HOME NO SERVICES TO TRANSPORT
[2023-06-29] MEDS: Omeprazole 20 MG CAPSULE.DR PO (16:22)
[2023-06-29 19:24] VITALS: BP 116/66; PULSE 69; RESP 18; TEMP 36.2; O2SAT 96
--- NOTE | 2023-06-29 20:28 | PC.NURSE ---
took over care for this patient at 2000
[2023-06-30] VITALS (8 sets, daily range): BP systolic 104–128; BP diastolic 57–83; PULSE 61–70; RESP 14–18; TEMP 36.2–37.1; O2SAT 95–98
[2023-06-30] MEDS: 0.9 % Sodium Chloride Flush 3 ML SYRINGE IVFLUSH ×4 (00:31→20:24)
[2023-06-30] MEDS: ceFAZolin Sodium/Dextrose,Iso 2 GM/50 ML PIGGYBACK IV ×4 (00:32→23:36)
[2023-06-30 06:43] LABS: Hematocrit 40.3 % (42.0-52.0); Hemoglobin 13.6 g/dl (14.0-18.0); Mean Corpuscular HGB Conc 33.7 g/dl (31.0-36.0); Mean Corpuscular Hemoglobin 30.2 pg (27.0-33.0); Mean Corpuscular Volume 89.6 fL (80.0-98.0); Mean Platelet Volume 10.7 fL (9.4-12.4); Platelet Count 224 X10*3/uL (160-400); Red Cell Distribution Width 12.4 % (11.0-16.0); White Blood Count 8.6 X10*3/uL (4.8-10.8)
--- NOTE | 2023-06-30 06:50 | PC.NURSE ---
left hand and arm elevated on pillows, remains tender, light red, edematous and outlined. per pt hand much improved
[2023-06-30 06:54] LABS: Anion Gap 10 (12-20); Blood Urea Nitrogen 13 mg/dL (9-16); Calcium 8.4 mg/dL (8.4-10.2); Carbon Dioxide 23 mmol/L (22-29); Chloride 110 mmol/L (96-108); Creatinine Clr Calc Pharmacy 117.2; Estimated Glomerular Filt Rate > 60; Glucose Random 101 mg/dL (60-115); Potassium 3.9 mmol/L (3.3-5.1); Sodium 139 mmol/L (135-145)
[2023-06-30] MEDS: Morphine Sulfate 2 MG/ML CARTRIDGE IVPUSH (08:11)
--- NOTE | 2023-06-30 09:01 | PM.PNORT ---
Subjective Subjective Date of Service: 06/30/23 Interval history: LOS 1 Left hand cellulitis no overnight events patient states his symptoms are improving but now experiencing some drainage from area where splinter was Physical Exam Vital Signs: Vital Signs: Last Vital Signs Temp 97.3 F 06/30/23 07:22 Pulse 69 06/30/23 07:22 Resp 18 06/30/23 07:22 BP 127/83 06/30/23 07:22 Pulse Ox 96 06/30/23 07:22 O2 Del Method Room Air 06/30/23 07:22 BMI result Body Mass Index 37.0 Extrem: Other: Left hand resolved redness over the dorsum of the hand and the volar aspect except where the splinter site was at the base of the index finger. No purulant drainage. No pain with passive extension. NVI. Procedures Date of Service Date of Service: 06/30/23 Progress Note: A&P Assessment and plan (1) Cellulitis of hand, left: Status: Acute Assessment and Plan: Continue IV abx perform warm water soaks 20mins, qid perform ROM of hand No surgical intervention at this time Time Spent With Patient Time: Total time managing care of this patient today ____ minutes. Quality Stroke Does the patient have a stroke diagnosis?: No VTE Prior VTE?: No VTE Risk Level:: Medical - moderate - high VTE Device Contraindication: Treatment Not Indicated VTE Drug Contraindication: N/A - Med Ordered
[2023-06-30] MEDS: buPROPion HCl XL 150 MG TAB.ER.24H PO (09:58)
[2023-06-30] MEDS: Amiodarone HCL 200 MG TABLET PO (09:58)
[2023-06-30] MEDS: Metoprolol Succinate ER 50 MG TAB.ER.24H PO (09:58)
[2023-06-30] MEDS: Acetaminophen 325 MG TABLET 650 MG PO (10:34)
--- NOTE | 2023-06-30 12:26 | HO.PM.IMPN ---
Subjective Subjective Date of Service: 06/30/23 Interval History: Seen and evaluated Erythema improiving swelling going down but still have an area of induration and drainage No fever or chills Review of Systems Review of Systems: Yes all other systems are reviewed and are negative Physical Exam Vital Signs: Vital Signs: Last Vital Signs Temp 97.3 F 06/30/23 07:22 Pulse 69 06/30/23 07:22 Resp 18 06/30/23 07:22 BP 127/83 06/30/23 07:22 Pulse Ox 96 06/30/23 07:22 O2 Del Method Room Air 06/30/23 07:22 BMI result Body Mass Index 37.0 Const: Other: Constitutional : Awake, interactive, not in distress Neck : Normal inspection, Supple Cardiovascular : RRR, no JVP, no lower extremity edema Respiratory : good bilateral air entry, no crackles, wheezes or rhonchi Gastrointestinal: soft, lax, Normal bowel sounds, Non tender Skin : Warm, Dry, Left hand erythema and base of index induration and drainage. Neurological : Alert & oriented x3, No focal deficit Objective Data Active Medications Acetaminophen (Acetaminophen 325 Mg Tablet) 650 mg PO Q4H PRN PRN Reason: moderate pain Last Admin: 06/30/23 10:34 Dose: 650 mg Documented By: FABIO Amiodarone HCl (Amiodarone Hcl 200 Mg Tablet) 200 mg PO DAILY [facility] Last Admin: 06/30/23 09:58 Dose: 200 mg Documented By: FABIO Bupropion HCl (Bupropion Hcl Xl 150 Mg Tab.Er.24h) 150 mg PO DAILY [facility] Last Admin: 06/30/23 09:58 Dose: 150 mg Documented By: FABIO Enoxaparin Sodium (Enoxaparin Sodium 40 Mg/0.4 Ml Syringe) 40 mg SUBCUT Q24H [facility] Cefazolin Sodium/Dextrose (Ancef) 2 gm in 50 mls @ 100 mls/hr IV Q8H [facility] Last Infusion: 06/30/23 09:56 Dose: Infused Documented By: FABIO Metoprolol Succinate (Metoprolol Succinate Er 50 Mg Tab.Er.24h) 50 mg PO DAILY [facility]; Protocol Last Admin: 06/30/23 09:58 Dose: 50 mg Documented By: FABIO Morphine Sulfate (Morphine Sulfate 2 Mg/Ml Cartridge) 2 mg IVPUSH Q4H PRN; Protocol PRN Reason: moderate pain Last Admin: 06/30/23 08:11 Dose: 2 mg Documented By: FABIO Omeprazole (Omeprazole 20 Mg Capsule.Dr) 20 mg PO BID@0630,1630 [facility] Last Admin: 06/30/23 06:14 Dose: Not Given Documented By: TWYLA Non-Admin Reason: NPO Sodium Chloride (0.9 % Sodium Chloride Flush 3 Ml Syringe) 3 ml IVFLUSH QSHIFT [facility] Last Admin: 06/30/23 09:59 Dose: 3 ml Documented By: FABIO Labs 06/30/23 06:26 06/30/23 06:26 Labs: Laboratory Results - last 24 hr 06/30/23 06:26 MCV 89.6 MCH 30.2 MCHC 33.7 RDW 12.4 Plt Count 224 MPV 10.7 Absolute Nucleated RBC 0.000 Nucleated RBC % (auto) 0.0 Anion Gap 10 L Estim Creat Clear Calc 117.2 Estimated GFR > 60 Random Glucose 101 Calcium 8.4 D Microbiology Microbiology Results: Microbiology 06/28/23 22:03 Blood Culture - Preliminary Blood - Venous No growth after 24 hours. 06/28/23 21:51 Blood Culture - Preliminary Blood - Venous No growth after 24 hours. Assessment and Plan (1) Cellulitis of hand, left: Status: Acute (2) Paroxysmal atrial fibrillation: Status: Acute Plan 57M PMH paroxysmal afib, obesity, mood disorder, ASD s/p closure, presented with left hand pain and swelling. Left hand cellulitis with foreign body improving Continue IV Ancef US showing Linear echogenic splinter seen in left palm and at the base of index finger measuring 2.2 x 0.1 x 0.2 cm. It is 0.4 to 1.4 cm deep to this superficial skin. Orthopedics following for possible surgical intervention Follow-up cultures mood disorder bupropion Paroxysmal atrial fibrillation Continue amiodarone and Toprol Will hold Eliquis in case surgical intervention required Obesity Weight loss recommended DVT prophylaxis - Lovenox while holding Eliquis Full code Patient will need overnight hospital stay for IV antibiotics and possible surgical intervention Quality Stroke Does the patient have a stroke diagnosis?: No VTE Prior VTE?: No VTE Risk Level:: Medical - moderate - high VTE Device Contraindication: Treatment Not Indicated VTE Drug Contraindication: N/A - Med Ordered
--- NOTE | 2023-06-30 15:32 | P.BOP_ITS ---
Brief Operative Note Date of Service: 06/30/23 Pre-op diagnosis: Left hand foreign body Post-op diagnosis: same Procedure: Removal of foreign body left hand Surgeon: Edin Young MD Anesthesia: GLMA and regional Was an Training Engineer used for this Procedure?: Yes Training Engineer: Ze Rivera Estimated blood loss (mL): 5 Tourniquet time (min): 20 Pathology: other Condition: stable Disposition: PACU
[2023-06-30] MEDS: Omeprazole 20 MG CAPSULE.DR PO (17:29)
[2023-06-30] MEDS: Enoxaparin Sodium 40 MG/0.4 ML SYRINGE SUBCUT (20:21)
[2023-07-01] MEDS: Morphine Sulfate 2 MG/ML CARTRIDGE IVPUSH (02:23)
[2023-07-01 03:44] VITALS: BP 136/86; PULSE 71; RESP 18; TEMP 36.6; O2SAT 96
[2023-07-01] MEDS: Acetaminophen 325 MG TABLET 650 MG PO ×2 (04:21→08:37)
[2023-07-01] MEDS: oxyCODONE HCl Immed Release 5 MG TABLET PO (04:22)
[2023-07-01] MEDS: Omeprazole 20 MG CAPSULE.DR PO (04:41)
[2023-07-01 06:33] LABS: Hematocrit 37.6 % (42.0-52.0); Hemoglobin 12.6 g/dl (14.0-18.0); Mean Corpuscular HGB Conc 33.5 g/dl (31.0-36.0); Mean Corpuscular Hemoglobin 29.9 pg (27.0-33.0); Mean Corpuscular Volume 89.3 fL (80.0-98.0); Platelet Count 197 X10*3/uL (160-400); Red Blood Count 4.21 X10*6/uL (4.60-5.80); Red Cell Distribution Width 12.6 % (11.0-16.0)
[2023-07-01 06:46] LABS: Anion Gap 10 (12-20); Blood Urea Nitrogen 11 mg/dL (9-16); Carbon Dioxide 22 mmol/L (22-29); Chloride 109 mmol/L (96-108); Creatinine Clr Calc Pharmacy 112.1; Estimated Glomerular Filt Rate > 60; Glucose Random 111 mg/dL (60-115); Potassium 3.6 mmol/L (3.3-5.1); Sodium 137 mmol/L (135-145)
[2023-07-01 07:17] VITALS: BP 122/60; PULSE 62; RESP 16; TEMP 36.6; O2SAT 97
[2023-07-01] MEDS: 0.9 % Sodium Chloride Flush 3 ML SYRINGE IVFLUSH (09:08)
[2023-07-01] MEDS: ceFAZolin Sodium/Dextrose,Iso 2 GM/50 ML PIGGYBACK IV (09:10)
[2023-07-01 09:54] VITALS: BP 112/57; PULSE 73
[2023-07-01] MEDS: Amiodarone HCL 200 MG TABLET PO (10:05)
[2023-07-01] MEDS: buPROPion HCl XL 150 MG TAB.ER.24H PO (10:05)
--- NOTE | 2023-07-01 10:43 | PM.DS ---
DS: Providers Provider Date of Service: 07/01/23 Date of admission: 06/29/23 00:13 Primary care physician: Jeremiah Aguirre DO Consults: 06/29/23 00:13 Consult to Orthopedics Routine Consulting Provider: [facility] [place] [facility] Reason for consultation: hand infection with foreign body DS: Diagnosis Discharge Diagnosis (1) Cellulitis of hand, left: Status: Acute (2) Paroxysmal atrial fibrillation: Status: Acute DS: Summary Hospital Course Hospital Course: Admission note HPI 57M PMH paroxysmal afib, obesity, mood disorder, ASD s/p closure, presented with left hand pain and swelling. Patient is horan and got a splinter in the plantar surface of left 2nd proximal digit. He believes he only partially removed splinter. Did not get any treatment for it. On day of presentation and became suddenly swollen, erythematous, difficult to fully flex fingers. Denies fever. Has full sensation, but does report paresthesias. In ED hand x-ray unremarkable. CT handd done but is pending. Hospital course # Left hand cellulitis with foreign body US showed Linear echogenic splinter seen in left palm and at the base of index finger measuring 2.2 x 0.1 x 0.2 cm. It is 0.4 to 1.4 cm deep to this superficial skin. Treated with IV antibiotics of Cefazolin as he was evaluated by Orthopedics who did surgical intervention removing 2 small wood pieces from the area. Cultures remained negative. Follow with Orthopedic office in 1 week Continue Ceftin and Doxycycline as prescribed remove the dressing tomorrow and keep the area dry and clean. Time Attestation Discharge coordination time: Greater than 30 minutes Quality: Safe Use of Opioids Does Pt have an Active Cancer Diagnosis on the Problem List?: No Quality: Stroke Does the patient have a stroke diagnosis?: No Physical Exam Vital Signs: Vital Signs: Last Vital Signs Temp 97.8 F 07/01/23 07:17 Pulse 73 07/01/23 09:54 Resp 16 07/01/23 07:17 BP 112/57 L 07/01/23 09:54 Pulse Ox 97 07/01/23 07:17 O2 Del Method Room Air 07/01/23 07:17 O2 Flow Rate 6 06/30/23 15:44 BMI result Body Mass Index 37.0 Const: Other: Constitutional : Awake, interactive, not in distress Neck : Normal inspection, Supple Cardiovascular : RRR, no JVP, no lower extremity edema Respiratory : good bilateral air entry, no crackles, wheezes or rhonchi Gastrointestinal: soft, lax, Normal bowel sounds, Non tender Skin : Warm, Dry, Left hand erythema and tenderness resolved in dressing Neurological : Alert & oriented x3, No focal deficit DS: Data Data Completed and Pending Pending studies at discharge: Pending at discharge 06/30/23 14:58 Surgical [PTH] Routine 06/30/23 16:23 Surgical [PTH] Routine Labs on day of discharge: Laboratory Results - last 24 hr 07/01/23 07/01/23 06:06 06:07 WBC 10.0 RBC 4.21 L Hgb 12.6 L Hct 37.6 L MCV 89.3 MCH 29.9 MCHC 33.5 RDW 12.6 Plt Count 197 MPV 11.0 Absolute Nucleated RBC 0.000 Nucleated RBC % (auto) 0.0 Sodium 137 Potassium 3.6 Chloride 109 H Carbon Dioxide 22 Anion Gap 10 L BUN 11 Creatinine 0.92 Estim Creat Clear Calc 112.1 Estimated GFR > 60 Random Glucose 111 Calcium 8.0 L Preliminary micro results at discharge 06/28/23 22:03 Blood Culture - Preliminary Blood - Venous No growth after 48 hours. 06/28/23 21:51 Blood Culture - Preliminary Blood - Venous No growth after 48 hours. Imaging Chest x-ray: Radiologist's impression: ITS Impressions Hand X-Ray 06/28/23 00:00 IMPRESSION: Positive foreign bodies as described. No evidence for underlying bony fracture Hand X-Ray 06/28/23 19:30 IMPRESSION: No fracture or dislocation. No radiopaque foreign body is seen. Hand CT 06/28/23 22:36 IMPRESSION: Mild degenerative of the wrist and edema of the wrist and hand. No acute osseous abnormality. No definitive evidence for tenosynovitis. MRI is a much better modality to evaluate soft tissues and should be considered if patient's symptoms persist.. Extremity Ultrasound 06/30/23 10:18 IMPRESSION: Linear echogenic splinter seen in left palm and at the base of index finger measuring 2.2 x 0.1 x 0.2 cm. It is 0.4 to 1.4 cm deep to this superficial skin. Discharge Plan Discharge Anticipated Discharge Date/Time: 07/01/23 10:41 Patient Disposition: Home, Self-Care Discharge Diagnosis: Hand cellulitis Referrals: Ze Rivera PA-C [Physician Low Emission Automobile Designer] - 1 Week Jeremiah Aguirre DO [Primary Care Provider] - 1 Week Discharge Medications: New oxycodone 5 mg Tablet 5 mg PO Q6H PRN (Reason: Pain, Severe (Pain Scale 7-10)) Qty: 10 0RF Rx Instructions: Partial Fill upon patient request. cefuroxime axetil 500 mg tablet 500 mg PO BID Qty: 14 0RF doxycycline monohydrate 100 mg capsule 100 mg PO BID Qty: 14 0RF Continued amiodarone 200 mg tablet 200 mg PO DAILY dicyclomine 20 mg tablet 20 mg PO QID PRN (Reason: Pain) bupropion HCl 150 mg tablet extended release 24 hr 150 mg PO DAILY Eliquis 5 mg Tablet 5 mg PO BID metoprolol succinate 50 mg tablet extended release 24 hr 50 mg PO DAILY omeprazole 20 mg capsule,delayed release(DR/EC) 20 mg PO BID Discharge Orders: Discharge Order (Routine); Ordered 07/01/23 Ordered By: Katharina Antonio Diet: Advance to usual diet Activity on Discharge: As tolerated Stand Alone Forms: Patient Portal Discharge page Care Plan Goals: Read below Health Concerns: Read below Plan of Treatment: Left hand : keep dressing clean, dry and intact. Perform dry dressing changes daily Return to see orthopedics in 1 week for wound check and suture removal Assessment: Continue Ceftin and Doxycycline as prescribed remove the dressing tomorrow and keep the area dry and clean.
--- NOTE | 2023-07-01 11:04 | MHC.CM.PN ---
PT TO DC HOME TODAY WITH NO SERVICES VIA PRIVATE TRANSPORT
--- NOTE | 2023-08-30 16:03 | W.PM.OPN ---
Operative Note Operative Note Date of Service: 06/30/23 Narrative: Date of Service: 06/30/23 Pre-op diagnosis: Left hand foreign body Post-op diagnosis: same Procedure: Removal of foreign body left hand Surgeon: Edin Young MD Anesthesia: GLMA and regional Was an Corporate Quality Engineer used for this Procedure?: Yes Corporate Quality Engineer: Ze Rivera Estimated blood loss (mL): 5 Tourniquet time (min): 20 Pathology: other Condition: stable Disposition: PACU Procedure in detail 57-year-old gentleman with a left hand foreign body and the thenar webspace/base of the index finger. He was brought to the operating room and prepped and draped in standard sterile fashion. A time-out was called to identify proper site, proper procedure and proper surgeon. IV antibiotics were administered. I began by identifying the foreign body with ultrasound at the radial aspect of the base of the 1st finger, essentially in the 1st webspace. There was entry point radially and I made a small incision and immediately encountered a foreign obj closed the incision partially, leaving the entry wound opened. Patient was placed in sterile dressing and local anesthetic was applied. He was awakened from anesthesia and brought to recovery room in stable condition. There were no known complications. do incision was irrigated and left open
== END 2023-07-01 12:00 | disposition home or self-care (01) | DRG 384 ==
LOC: HO.ED 06-29 02:22 → HO.EDOVER 06-29 02:55 → HO.S3 06-29 08:24
PROVIDERS: Orthopaedic Surgery; Physician Assistant; Student in an Organized Health Care Education/Training Program; Admitting Provider Internal Medicine; Emergency Provider Emergency Medicine; PCP Family Medicine; Visit Provider Student in an Organized Health Care Education/Training Program
PROC: 0JCK0ZZ Extirpation of Matter from Left Hand Subcutaneous Tissue and Fascia, Open Approach (ICD-10-PCS; CPT 10120; principal; 2023-06-30 15:10)
DX: S60.552A Superficial foreign body of left hand, initial encounter (principal); E66.9 Obesity, unspecified; L03.114 Cellulitis of left upper limb; I48.0 Paroxysmal atrial fibrillation; W45.8XXA Other foreign body or object entering through skin, initial encounter; Y93.9 Activity, unspecified; Z68.37 Body mass index [BMI] 37.0-37.9, adult; Z79.01 Long term (current) use of anticoagulants; Z79.899 Other long term (current) drug therapy
CPT/HCPCS: 10120; 36415; 73130; 73201; 76882; 80048; 80053; 83605; 85025; 85027; 85610; 85730; 87040; 88300; 99221; 99285; J0690; J0696; J1650; J2270; J2371; J2405; J2795; J3370; Q9967

== ENCOUNTER → 2023-06-28 20:55 | Outpatient (BNV) | payer OTHER, SELFPAY | PROVIDERS: Emergency Provider Emergency Medicine; PCP Family Medicine; Visit Provider Internal Medicine | DX: L03.012 Cellulitis of left finger (principal); I48.0 Paroxysmal atrial fibrillation | CPT/HCPCS: 99223; 99232; 99239; 99499 ==

== ENCOUNTER → 2023-06-29 00:13 | Outpatient (BNV) | payer OTHER, SELFPAY | PROVIDERS: Admitting Provider Internal Medicine; Emergency Provider Emergency Medicine; PCP Family Medicine; Visit Provider Physician Assistant | DX: S60.552A Superficial foreign body of left hand, initial encounter (principal); L03.114 Cellulitis of left upper limb | CPT/HCPCS: 10120; 99231 ==

== ENCOUNTER 2023-07-10 12:49 | Outpatient (AMB) | payer OTHER, SELFPAY ==
--- NOTE | 2023-07-10 12:52 | MHC.OFFVIS ---
Intake Vital Signs 07/10/23 12:59 Height 5 ft 10 in Weight 250 lb BMI 35.9 Intake Visit Reasons: PO-Cellulitis/left hand-DOS 06/30/23 NE Intake Note: Getachew a 57 year old left hand dominant male presents today for a post operative removal of foreign body, left hand, DOS 06/30/23 NE. Patient reports he is doing well, states some stiffness in finger. He discontinued antibiotics due to stomach upset. Allergies No Known Allergies Allergy (Mild, Verified 07/10/23 12:59) UNKNOWN HPI PO-Cellulitis/left hand-DOS 06/30/23 NE HPI Details 57-year-old left hand dominant male who returns to the office today for post-op left hand removal of foreign body, 06/30/23. He states he has mild soreness in his finger but is doing well overall. He reports he has discontinued taking antibiotics due to stomach upset. He is doing well otherwise and has no concerns today. He does not have a history of diabetes. [facility] Medical History (Updated 07/09/23 @ 00:03 by Martin Reyna) Paroxysmal atrial fibrillation Surgical History H/O heart surgery H/O cardiac radiofrequency ablation Social History Household Members: Spouse Housing: House Do you presently have visiting nurse or other home services: No Alcohol intake: current Alcohol intake frequency: a few times a month Patient Tobacco Use Status: Never used Tobacco service: No Review of Systems Const All systems reviewed & are unremarkable except as noted in HPI and below Physical Exam Vital Signs: BMI result Body Mass Index 35.9 Extrem Other: Left hand: Normal to inspection. Incision clean, dry and intact. No erythema or drainage. He can make a full fist and fully extend the digits. Assessment & Plan Assessment & Plan (1) Cellulitis of hand, left: Code(s): L03.114 - Cellulitis of left upper limb Plan Sutures removed today, steri strips applied. I recommend that he avoid submerging his hand underwater for the next 7-10 days. He can get his hand wet but he should dry this off. He can increase activity as tolerated and see me back as needed. Patient Instructions: Scribed for Luis-Mandie Rivera PA-C, by Ceferino Florian, medical transcription editor, on 07/10/2023 at 1:00 PM EST. Luis Leal-Mandie Rivera PA-C, have personally reviewed and agree with the information entered by the scribe. Coding Level of Care Code Global (48222) Diagnoses Cellulitis of hand, left L03.114
[2023-07-10 12:59] VITALS: BMI 35.9
== END 2023-07-10 13:17 | disposition home or self-care (01) ==
PROVIDERS: PCP Family Medicine; Visit Provider Physician Assistant
DX: L03.114 Cellulitis of left upper limb (principal)
CPT/HCPCS: 99024

== ENCOUNTER → 2023-07-10 12:49 | Outpatient (BNVA) | payer OTHER, SELFPAY | PROVIDERS: PCP Family Medicine; Visit Provider Physician Assistant ==